=== PATIENT | female | born 1945 | race Caucasian/White ===

== ENCOUNTER 2016-12-03 17:54 | Emergency (ER) | payer MEDICARE, BC ==
[2016-12-03 18:11] VITALS: BP 148/87
[2016-12-03] MEDS ORDERED: Sodium Chloride 0.9% 10 ML Syringe FLUSH PRN (18:32)
[2016-12-03] MEDS ORDERED: Aspirin 81 MG Tab.Chew PO ONE (18:34)
[2016-12-03] MEDS ORDERED: HYDROmorphone 0.5 MG/0.5 ML Syringe IVPUSH ONE (20:02)
--- NOTE | 2016-12-03 20:08 | EDM.PDOC ---
ED HPI GENERAL MEDICAL PROBLEM - General Chief Complaint: Upper Extremity Injury/Pain Stated Complaint: Shoulder pain Time Seen by Provider: 12/03/16 18:15 Source of Information: Reports: Patient, RN Notes Reviewed History Limitations: Reports: No Limitations - History of Present Illness INITIAL COMMENTS - FREE TEXT/NARRATIVE: 71 year old female presents to the ED with complaints of left shoulder pain for the past 3-4 days. She says the pain radiates down her left arm and into her neck. She denies chest pain. She reports mild increase in shortness of breath over the past few weeks. Her PCP Dr. Mcneal recently increased her Lasix and the patient reports a 10lb weight loss as a result. She denies swelling in her lower extremities. She says the pain is intermittent and mild in nature. She has a pacemaker. She denies fever, chills, cough, nausea, vomiting, abdominal pain, or diarrhea. She denies history of heart attack. She is not a smoker. She took Tramadol with minimal relief. Left Shoulder Pain Score (Numeric/FACES): 5 - Related Data Allergies Allergy/AdvReac Type Severity Reaction Status Date / Time ACEINHIBITORS Allergy Intermediate Edema Verified 12/03/16 19:40 [MELYSSA Inhibitors] hydrochlorothiazide Allergy Intermediate unknown Verified 12/03/16 18:04 tetracycline [Tetracycline] Allergy Intermediate Hives Verified 12/03/16 19:41 Home Meds: Home Meds Acetaminophen [Tylenol Extra Strength] 2 tape PO ASDIRECTED PRN 07/30/13 [ History] Acetaminophen/Diphenhydramine [Acetaminophen Pm Gelcap] 2 tab PO BEDTIME PRN 07/10 [History] Alendronate Sodium [Fosamax] 70 mg PO ASDIRECTED 07/30/13 [History] Ascorbic Acid [Vitamin C] 500 mg PO DAILY 07/30/13 [History] Aspirin [Adult Low Dose Aspirin EC] 81 mg PO DAILY 07/30/13 [History] Atenolol 50 mg PO DAILY 07/30/13 [History] Calcium Carbonate/Vitamin D3 [Caltrate-600 with Vit D Tab] 1 each PO BID [History] Folic Acid 0.5 tab PO DAILY 07/30/13 [History] Furosemide [Lasix] 80 mg PO BID 07/30/13 [History] Hydrocodone/Acetaminophen [Hydrocodone-Acetaminophen 5-325] 1 each PO Q6H PRN # 10 tablet 07/30/13 [Rx] Ibuprofen [Motrin] 400 mg PO Q8H PRN 07/30/13 [History] Isosorbide Mononitrate [Imdur] 30 mg PO DAILY 07/30/13 [History] Levothyroxine [Synthroid] 25 mcg PO ASDIRECTED 07/30/13 [History] Levothyroxine [Synthroid] 50 mcg PO ASDIRECTED 07/30/13 [History] Multivitamin [Multivitamins] 1 each PO DAILY 07/30/13 [History] [place]-3 Fatty Acids/Fish Oil [Fish Oil 1,200 mg Softgel] 1,200 each PO BID 07/30 [History] Omeprazole [Prilosec] 20 mg PO DAILY 07/30/13 [History] Potassium Chloride [Klor-Con 10] 20 meq PO DAILY 07/30/13 [History] Propylene Glycol/Peg 400 [Systane Liquid Gel Eye Drops] 1 drop EYEBOTH PRN 07/30 [History] Pyridoxine HCl [Vitamin B-6] 100 mg PO DAILY 07/30/13 [History] Sertraline [Zoloft] 50 mg PO DAILY 07/30/13 [History] Past Medical History Cardiovascular History: Reports: Heart Failure, High Cholesterol, Hypertension, Pacemaker, SOB on Exertion Genitourinary History: Reports: Renal Disease Endocrine/Metabolic History: Reports: Hypothyroidism - Past Surgical History GI Surgical History: Reports: Hernia Repair/Other Social & Family History - Tobacco Use Smoking Status *Q: Former Smoker Years of Tobacco use: 15 Used Tobacco, but Quit: No Month Tobacco Last Used: 2003 Review of Systems - Review of Systems Review Of Systems: See Below Respiratory: Reports: Shortness of Breath. Denies: Wheezing, Pleuritic Chest Pain, Cough, Sputum Cardiovascular: Reports: Chest Pain. Denies: Edema, Lightheadedness, Palpitations, Syncope GI/Abdominal: Reports: No Symptoms. Denies: Abdominal Pain, Nausea, Vomiting Neurological: Reports: No Symptoms ED EXAM, GENERAL - Physical Exam Exam: See Below Exam Limited By: No Limitations General Appearance: Alert, No Apparent Distress, Obese Respiratory/Chest: No Respiratory Distress, Lungs Clear, Normal Breath Sounds, No Accessory Muscle Use, Chest Non-Tender Cardiovascular: Normal Peripheral Pulses, Regular Rate, Rhythm, No Edema, Systolic Murmur GI/Abdominal: Normal Bowel Sounds, Soft, Non-Tender, No Distention Extremities: Normal Inspection, Normal Range of Motion, No Pedal Edema Neurological: Alert, Oriented, Normal Cognition Skin Exam: Warm, Dry, Intact EKG INTERPRETATION EKG Date: 12/03/16 Time: 18:20 Rhythm: NSR Rate (Beats/Min): 61 P-Wave: Present QRS: RBBB ST-T: Normal QT: Normal EKG Interpretation Comments: Right bundle branch block. Read by EKG. Course - Vital Signs Last Recorded V/S: Last Vital Signs Temp 98.2 F 12/03/16 18:08 Pulse 64 12/03/16 18:08 Resp 16 12/03/16 18:08 BP 148/87 H 12/03/16 18:08 Pulse Ox 96 12/03/16 18:08 - Orders/Labs/Meds Orders: Active Orders 24 hr Category Date Time Status Cardiac Monitoring [RC] . DIRECTED Care 12/03/16 18:32 Active EKG 12 Lead [EKG Documentation Completion] [RC] STAT Care 12/03/16 18:15 Active Peripheral IV Care [RC] . DIRECTED Care 12/03/16 18:33 Active CXR [Chest 1V Frontal] [CR] Stat Exams 12/03/16 18:45 Taken Sodium Chloride 0.9% [Saline Flush] Med 12/03/16 18:32 Active 10 ml FLUSH ASDIRECTED PRN Peripheral IV Insertion Adult [OM.PC] Stat Oth 12/03/16 18:33 Ordered Medication Orders Sodium Chloride (Saline Flush) 10 ml FLUSH ASDIRECTED PRN PRN Reason: Keep Vein Open Last Admin: 12/03/16 18:38 Dose: 10 ml Labs: Laboratory Tests 12/03/16 12/03/16 12/03/16 Range/Units 18:38 18:38 18:38 WBC 6.29 (3.98-10.04) K/mm3 RBC 4.13 (3.98-5.22) M/mm3 Hgb 12.2 (11.2-15.7) gm/L Hct 39.0 (34.1-44.9) % MCV 94.4 (79.4-94.8) fl MCH 29.5 (25.6-32.2) pg MCHC 31.3 L (32.2-35.5) g/dl RDW Std Deviation 50.2 H (36.4-46.3) fL Plt Count 168 L (182-369) K/mm3 MPV 10.6 (9.4-12.3) fl Neut % (Auto) 59.4 (34.0-71.1) % Lymph % (Auto) 26.1 (19.3-51.7) % [place] % (Auto) 10.5 (4.7-12.5) % Eos % (Auto) 3.7 (0.7-5.8) Baso % (Auto) 0.3 (0.1-1.2) % Neut # (Auto) 3.74 (1.56-6.13) K/mm3 Lymph # (Auto) 1.64 (1.18-3.74) K/mm3 [place] # (Auto) 0.66 H (0.24-0.36) K/mm3 Eos # (Auto) 0.23 (0.04-0.36) K/mm3 Baso # (Auto) 0.02 (0.01-0.08) K/mm3 Sodium 142 (136-145) mEq/L Potassium 4.0 (3.5-5.1) mEq/L Chloride 103 (98-107) mEq/L Carbon Dioxide 36 H (21-32) mEq/L Anion Gap 7.0 (5-15) BUN 23 H (7-18) mg/dL Creatinine 1.0 (0.55-1.02) mg/dL Est Cr Clr Drug Dosing 38.94 mL/min Estimated GFR (MDRD) 55 (>60) mL/min BUN/Creatinine Ratio 23.0 H (14-18) Glucose 98 (83-115) mg/dL Calcium 10.3 H (8.5-10.1) mg/dL Total Bilirubin 0.3 (0.2-1.0) mg/dL AST 22 (15-37) U/L ALT 26 (14-59) U/L Alkaline Phosphatase 61 (46-116) U/L Troponin I 0.020 (0.00-0.056) ng/mL NT-Pro-B Natriuret Pep 1470 H (0-125) pg/mL Total Protein 7.1 (6.4-8.2) g/dl Albumin 3.5 (3.4-5.0) g/dl Globulin 3.6 gm/dL Albumin/Globulin Ratio 1.0 (1-2) 12/03/16 Range/Units 21:27 WBC (3.98-10.04) K/mm3 RBC (3.98-5.22) M/mm3 Hgb (11.2-15.7) gm/L Hct (34.1-44.9) % MCV (79.4-94.8) fl MCH (25.6-32.2) pg MCHC (32.2-35.5) g/dl RDW Std Deviation (36.4-46.3) fL Plt Count (182-369) K/mm3 MPV (9.4-12.3) fl Neut % (Auto) (34.0-71.1) % Lymph % (Auto) (19.3-51.7) % [place] % (Auto) (4.7-12.5) % Eos % (Auto) (0.7-5.8) Baso % (Auto) (0.1-1.2) % Neut # (Auto) (1.56-6.13) K/mm3 Lymph # (Auto) (1.18-3.74) K/mm3 [place] # (Auto) (0.24-0.36) K/mm3 Eos # (Auto) (0.04-0.36) K/mm3 Baso # (Auto) (0.01-0.08) K/mm3 Sodium (136-145) mEq/L Potassium (3.5-5.1) mEq/L Chloride (98-107) mEq/L Carbon Dioxide (21-32) mEq/L Anion Gap (5-15) BUN (7-18) mg/dL Creatinine (0.55-1.02) mg/dL Est Cr Clr Drug Dosing mL/min Estimated GFR (MDRD) (>60) mL/min BUN/Creatinine Ratio (14-18) Glucose (83-115) mg/dL Calcium (8.5-10.1) mg/dL Total Bilirubin (0.2-1.0) mg/dL AST (15-37) U/L ALT (14-59) U/L Alkaline Phosphatase (46-116) U/L Troponin I 0.025 (0.00-0.056) ng/mL NT-Pro-B Natriuret Pep (0-125) pg/mL Total Protein (6.4-8.2) g/dl Albumin (3.4-5.0) g/dl Globulin gm/dL Albumin/Globulin Ratio (1-2) Meds: Medications Generic Name Dose Route Start Last Admin Trade Name Freq PRN Reason Stop Dose Admin Sodium Chloride 10 ml 12/03/16 18:32 12/03/16 18:38 Saline Flush FLUSH 10 ml ASDIRECTED PRN Administration Keep Vein Open Discontinued Medications Generic Name Dose Route Start Last Admin Trade Name Freq PRN Reason Stop Dose Admin Aspirin 324 mg 12/03/16 18:34 12/03/16 18:41 Aspirin PO 12/03/16 18:35 324 mg ONETIME ONE Administration Hydromorphone HCl 0.5 mg 12/03/16 20:02 12/03/16 20:11 Dilaudid IVPUSH 12/03/16 20:03 0.5 mg ONETIME ONE Administration - Re-Assessments/Exams Free Text/Narrative Re-Assessment/Exam: CBC is normal. CMP reveals Carbon dioxide of 36. Otherwise unremarkable. Troponin is WNL at 0.020. BNP is 1470. Patient reports that her BNP a few weeks ago was 4000 and had improved to 2000 after increasing her Lasix. Repeat 3 hour troponin ordered. Chest x-ray reveals blunting of the costophrenic angles. Cardiomegaly noted. No pulmonary infiltrates appreciated. Radiologist report is pending. 12/03/16 22:15 Repeat troponin is WNL. Patient will be discharged home. She was instructed to return with any new or worsening symptoms. She was instructed to f/u with Dr. Mcneal tomorrow or early next week for recheck. She is to continue her medications as prescribed. Discharge instructions as documented. Her is here to drive her home. Departure - Departure Time of Disposition: 22:17 Disposition: Home, Self-Care 01 Condition: Good Clinical Impression: Left shoulder pain Qualifiers: Chronicity: unspecified Qualified Code(s): M25.512 - Pain in left shoulder - Discharge Information Instructions: Shoulder Pain, Nonspecific Chest Pain, [id number] Referrals: Luna Mcneal MD [Primary Care Provider] - Forms: ED Department Discharge Additional Instructions: Your cardiac workup today was normal Return to ER with any new or worsening symptoms Follow-up with Dr. Mcneal tomorrow or early next week for recheck Continue your current medications as prescribed. - My Orders Last 24 Hours: My Active Orders 12/03/16 18:15 EKG 12 Lead [EKG Documentation Completion] [RC] STAT 12/03/16 18:32 Cardiac Monitoring [RC] . DIRECTED Sodium Chloride 0.9% [Saline Flush] 10 ml FLUSH ASDIRECTED PRN 12/03/16 18:33 Peripheral IV Care [RC] . DIRECTED Peripheral IV Insertion Adult [OM.PC] Stat 12/03/16 18:45 CXR [Chest 1V Frontal] [CR] Stat - Assessment/Plan Last 24 Hours: My Active Orders 12/03/16 18:15 EKG 12 Lead [EKG Documentation Completion] [RC] STAT 12/03/16 18:32 Cardiac Monitoring [RC] . DIRECTED Sodium Chloride 0.9% [Saline Flush] 10 ml FLUSH ASDIRECTED PRN 12/03/16 18:33 Peripheral IV Care [RC] . DIRECTED Peripheral IV Insertion Adult [OM.PC] Stat 12/03/16 18:45 CXR [Chest 1V Frontal] [CR] Stat
--- NOTE | 2016-12-04 08:33 | CR ---
Chest: Portable view of the chest was obtained. Comparison: Previous chest x-ray of 02/25/13. Heart is enlarged. Tortuous thoracic aorta is seen. Bilateral shoulder prosthesis are seen. Pacemaker is noted. Slight scarring is noted within the left mid lung. Lungs otherwise are clear. Impression: 1. Cardiomegaly and other findings. Nothing acute is identified. Diagnostic code #2
== END 2016-12-03 22:32 | disposition home or self-care (01) ==
LOC: JD.ED 17:54
DX: M25.512 Pain in left shoulder (principal); I11.0 Hypertensive heart disease with heart failure; I50.9 Heart failure, unspecified; E78.00 Pure hypercholesterolemia, unspecified; E03.9 Hypothyroidism, unspecified; Z88.1 Allergy status to other antibiotic agents; Z79.899 Other long term (current) drug therapy; Z79.82 Long term (current) use of aspirin; Z87.891 Personal history of nicotine dependence
CPT/HCPCS: 36415; 71010; 80053; 83880; 84484; 85025; 93005; 96374; 99284; A9270; J1170; J7050

== ENCOUNTER 2018-07-07 16:36 | Inpatient (IN) | payer MEDICARE, BC ==
--- NOTE | 2018-07-07 16:46 | EDM.PDOC ---
ED HPI GENERAL MEDICAL PROBLEM - General Chief Complaint: General Stated Complaint: [facility] Time Seen by Provider: 07/07/18 16:45 Source of Information: Reports: Patient History Limitations: Reports: No Limitations - History of Present Illness INITIAL COMMENTS - FREE TEXT/NARRATIVE: 72-year-old female presents to the ED per [facility]. is a history of congestive heart failure and is concerned because of persistent bleeding per rectum with each bowel movement and sometimes without a bowel movement. She has a history of hemorrhoids she's not sure if combination of external and internal hemorrhoids. She is on Eliquis because of chronic atrial fibrillation. She has been constipated as of late as well. She feels more short of breath. She is worn out and not able to look after herself at this point time in terms of getting food or proper nutrition. Patient has severe congestive heart failure and uses 80 mg of Lasix twice a day. She states she's getting weaker by the day and unable to stand up for very long due to becoming lightheaded and having difficulty making it to the bathroom. She has to wear a pad at nighttime because of persistent oozing of blood per rectum. She states bowel movements are painful as well. She has to been taking some laxatives the last few days and bowels have been working but are still very firm and difficult to pass Onset: Gradual Onset Date: 07/04/18 (Has been bleeding per rectum. Well for the last 3-4 days intermittently.) Duration: Day(s):, Getting Worse Location: Reports: Chest, Other (Dyspnea. Bleeding per rectum) Quality: Reports: Other (Shortness of breath on minimal exertion. Persistent lower abdominal cramping pain with painful bowel movements and bleeding per rectum) Severity: Moderate Improves with: Reports: None Worsens with: Reports: Other, Movement Context: Denies: Activity (Bleeding per rectum is worse with bowel movements which have been quite painful and hard to pass), Exercise, Lifting, Sick Contact , Trauma, Other Associated Symptoms: Reports: Loss of Appetite, Malaise, Shortness of Breath, Weakness. 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 (see below) (Only her regular medicines including aspirin and Eliquis.) - Related Data Allergies Allergy/AdvReac Type Severity Reaction Status Date / Time ACEINHIBITORS Allergy Intermediate Edema Verified 12/03/16 19:40 [MELYSSA Inhibitors] hydrochlorothiazide Allergy Intermediate unknown Verified 12/03/16 18:04 tetracycline [Tetracycline] Allergy Intermediate Hives Verified 12/03/16 19:41 Home Meds: Home Meds Atenolol 50 mg PO DAILY 07/30/13 [History] Calcium Carbonate/Vitamin D3 [Caltrate-600 with Vit D Tab] 1 each PO BID [History] Folic Acid 0.5 mg PO DAILY 07/30/13 [History] Furosemide [Lasix] 80 mg PO BID 07/30/13 [History] Levothyroxine [Synthroid] 25 mcg PO ASDIRECTED 07/30/13 [History] Levothyroxine [Synthroid] 50 mcg PO ASDIRECTED 07/30/13 [History] Multivitamin [Multivitamins] 1 each PO DAILY 07/30/13 [History] Omeprazole [Prilosec] 20 mg PO DAILY 07/30/13 [History] Potassium Chloride [Klor-Con 10] 20 meq PO BID 07/30/13 [History] Propylene Glycol/Peg 400 [Systane Liquid Gel Eye Drops] 1 drop EYEBOTH DAILY PRN 07/30/13 [History] Acetaminophen [Tylenol Arthritis Pain] 650 mg PO Q8H PRN 07/07/18 [History] Apixaban [Eliquis] 5 mg PO DAILY 07/07/18 [History] Cyanocobalamin (Vitamin B-12) [B-12] 1,000 mcg PO DAILY 07/07/18 [History] Diclofenac Sodium [Voltaren 1% Gel] 1 - 2 gm TOP BID 07/07/18 [History] Diltiazem [Cardizem CD] 120 mg PO DAILY 07/07/18 [History] Docusate Sodium 200 mg PO DAILY 07/07/18 [History] Fluticasone Propionate [Flonase Allergy Relief] 1 spray CATHY BID 07/07/18 [ History] Loratadine 10 mg PO DAILY 07/07/18 [History] Melatonin 5 mg PO BEDTIME 07/07/18 [History] Polyethylene Glycol [Polyox Wsr-301] 17 g PO Q72H 07/07/18 [History] Rosuvastatin Calcium 20 mg PO DAILY 07/07/18 [History] Sertraline [Zoloft] 75 mg PO DAILY 07/07/18 [History] guaiFENesin [Mucinex] 1,200 mg PO BID 07/07/18 [History] metOLazone [Metolazone] 5 mg PO DAILY 07/07/18 [History] Past Medical History Cardiovascular History: Reports: Heart Failure, High Cholesterol, Hypertension, Pacemaker, SOB on Exertion Genitourinary History: Reports: Renal Disease Endocrine/Metabolic History: Reports: Hypothyroidism - Past Surgical History GI Surgical History: Reports: Hernia Repair/Other Social & Family History - Living Situation & Occupation Living situation: Reports: Occupation: Retired ED ROS GENERAL - Review of Systems Review Of Systems: See Below Constitutional: Reports: Malaise, Weakness, Fatigue, Decreased Appetite, Weight Loss. Denies: Fever, Chills HEENT: Reports: Glasses, Hearing Loss (Mildly hard of hearing.) Respiratory: Reports: Shortness of Breath. Denies: Wheezing, Pleuritic Chest Pain, Cough, Sputum, Hemoptysis Cardiovascular: Reports: Blood Pressure Problem, Dyspnea on Exertion ( Intermittently in her lower extremities), Edema, Lightheadedness, Palpitations ( worse as of late). Denies: Chest Pain, Claudication (Often runs a bit on the low side.), Orthopnea Endocrine: Reports: Fatigue ( atrial fibrillation) GI/Abdominal: Reports: Abdominal Pain (Mostly lower abdominal cramping pain.), Constipation : Reports: Frequency, Incontinence (Urge and stress components.), Other ( Persistent bleeding per rectum even without a bowel movement.) Musculoskeletal: Reports: Neck Pain, Shoulder Pain, Other (Patient has had bilateral shoulder replacements and bilateral hip replacements. 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 Denies: Confusion, Headache, Numbness, Paresthesia, Pre-Existing Deficit, Seizure, Syncope, Tingling, Tremors, Trouble Speaking, Change in Speech, Gait Disturbance Psychiatric: Reports: Anxiety (Mild) Hematologic/Lymphatic: Denies: No Symptoms Immunologic: Denies: No Symptoms ED EXAM, GENERAL - Physical Exam Exam: See Below Exam Limited By: No Limitations General Appearance: Alert, WD/WN, Anxious, Mild Distress, Other (Mildly palate in color. Sats only 92% on room air. 96-97% on 2 L.) Eye Exam: Bilateral Eye: Normal Inspection (Peripheral margins are normal) Throat/Mouth: Normal Inspection, Normal Oropharynx, Other (Tongue is mildly dry and coated) Head: Atraumatic, Normocephalic Neck: Normal Inspection, Supple, Non-Tender. No: Full Range of Motion, Lymphadenopathy (L), Lymphadenopathy (R) Respiratory/Chest: No Accessory Muscle Use, Respiratory Distress (Mild tachypnea at rest), Rales. No: Lungs Clear, Normal Breath Sounds, Rhonchi, Wheezing (Rales both bases worse on the left as compared to the right) Cardiovascular: No Edema, JVD (3 cm below the right angle of mandible), Irregularly Irregular (Chronic atrial fibrillation with controlled rate). No: Normal Peripheral Pulses, Regular Rate, Rhythm, Tachycardia Peripheral Pulses: 0: Posterior Tibial (L) (No pulses are palpable below the femorals. Feet are extremely cool to touch indicating significant peripheral vascular disease.), Posterior Tibial (R), Dorsalis Pedis (L), Dorsalis Pedis (R) GI/Abdominal: Soft, Distended (Bowel sounds are very active in all 4 quadrants.) , Abnormal Bowel Sounds, Other (Multiple surgical scars.). No: Non-Tender, No Organomegaly, No Abnormal Bruit ( Distended and tympanitic to percussion.), No Mass, Pelvis Stable Extremities: No Pedal Edema, Other (Both legs are very cool to touch and no pulses are palpable below the femorals indicating peripheral vascular disease. There are no open wounds or ulcerations on the lower extremities. ). No: Normal Capillary Refill Psychiatric: Anxious Skin Exam: Warm, Dry, Intact, Pallor (Slightly pallid.) EKG INTERPRETATION EKG Date: 07/07/18 Time: 17:10 Rhythm: Other (100% paced rhythm at 60/m. No further analysis attempted) [place]: LAD-Left [place] Deviation (-76) QRS: Wide EKG Interpretation Comments: 100% ventricular paced rhythm. No further analysis attempted Course - Vital Signs Last Recorded V/S: Last Vital Signs Temp 36.3 C 07/07/18 16:49 Pulse 71 07/07/18 16:49 Resp 17 07/07/18 16:49 BP 88/63 L 04/11/19 16:49 Pulse Ox 97 07/07/18 17:01 - Orders/Labs/Meds Orders: Active Orders 24 hr Category Date Time Status Admission Status [Patient Status] [ADT] Routine ADT 07/07/18 19:08 Ordered EKG Documentation Completion [RC] STAT Care 07/07/18 17:00 Active Oxygen Therapy [RC] ASDIRECTED Care 07/07/18 17:01 Active Peripheral IV Care [RC] . DIRECTED Care 07/07/18 17:01 Active Abdomen 1V Flat [CR] Stat Exams 07/07/18 17:06 Taken Chest 1V Frontal [CR] Stat Exams 07/07/18 17:00 Taken HELICOBACTER PYLORI AB IGG [CHEM] Stat Lab 07/07/18 19:10 Ordered Potassium Chloride [KCl 10 MEQ in Water 100 ML] 10 meq Med 07/07/18 18:44 Active Premix Bag 1 bag IV ONETIME Sodium Chloride 0.9% [Normal Saline] 1,000 ml Med 07/07/18 18:45 Active IV ASDIRECTED Sodium Chloride 0.9% [Saline Flush] Med 07/07/18 17:01 Active 10 ml FLUSH ASDIRECTED PRN Peripheral IV Insertion Adult [OM.PC] Stat Oth 07/07/18 17:00 Ordered Medication Orders Potassium Chloride 10 meq/ (Premix) 100 mls @ 100 mls/hr IV ONETIME ONE Stop: 07/07/18 19:43 Last Admin: 07/07/18 19:09 Dose: 100 mls/hr Sodium Chloride (Normal Saline) 1,000 mls @ 50 mls/hr IV ASDIRECTED SHINE Last Admin: 07/07/18 19:09 Dose: 50 mls/hr Sodium Chloride (Saline Flush) 10 ml FLUSH ASDIRECTED PRN PRN Reason: Keep Vein Open Last Admin: 07/07/18 17:33 Dose: 10 ml Labs: Laboratory Tests 07/07/18 07/07/18 07/07/18 Range/Units 17:00 17:00 17:00 WBC 14.03 H (3.98-10.04) K/mm3 RBC 5.88 H (3.98-5.22) M/mm3 Hgb 17.9 H (11.2-15.7) gm/L Hct 50.9 H (34.1-44.9) % MCV 86.6 (79.4-94.8) fl MCH 30.4 (25.6-32.2) pg MCHC 35.2 (32.2-35.5) g/dl RDW Std Deviation 46.8 H (36.4-46.3) fL Plt Count 185 (182-369) K/mm3 MPV 11.7 (9.4-12.3) fl Neutrophils % (Manual) 84 H (40-60) % Band Neutrophils % 0 (0-10) % Lymphocytes % (Manual) 9 L (20-40) % Atypical Lymphs % 0 % Monocytes % (Manual) 7 (2-10) % Eosinophils % (Manual) 0 L (0.7-5.8) % Basophils % (Manual) 0 L (0.1-1.2) Platelet Estimate Adequate RBC Morph Comment Normal PT 12.5 H (9.5-12.1) SECONDS INR 1.15 APTT 27 (24-31) SECONDS Sodium 128 L (136-145) mEq/L Potassium 2.8 L (3.5-5.1) mEq/L Chloride 87 L (98-107) mEq/L Carbon Dioxide 26 (21-32) mEq/L Anion Gap 17.8 H (5-15) BUN 133 H (7-18) mg/dL Creatinine 2.3 H (0.55-1.02) mg/dL Est Cr Clr Drug Dosing 17.49 mL/min Estimated GFR (MDRD) 21 (>60) mL/min BUN/Creatinine Ratio 57.8 H (14-18) Glucose 169 H (83-115) mg/dL Calcium 12.4 H (8.5-10.1) mg/dL Magnesium 3.7 H (1.8-2.4) mg/dl Total Bilirubin 0.8 (0.2-1.0) mg/dL AST 34 (15-37) U/L ALT 35 (14-59) U/L Alkaline Phosphatase 79 (46-116) U/L Troponin I 0.104 H* (0.00-0.056) ng/mL C-Reactive Protein 2.3 H* (<1.0) mg/dL NT-Pro-B Natriuret Pep (0-125) pg/mL Total Protein 8.8 H (6.4-8.2) g/dl Albumin 4.2 (3.4-5.0) g/dl Globulin 4.6 gm/dL Albumin/Globulin Ratio 0.9 L (1-2) Blood Type Gel Antibody Screen 07/07/18 07/07/18 Range/Units 17:00 17:00 WBC (3.98-10.04) K/mm3 RBC (3.98-5.22) M/mm3 Hgb (11.2-15.7) gm/L Hct (34.1-44.9) % MCV (79.4-94.8) fl MCH (25.6-32.2) pg MCHC (32.2-35.5) g/dl RDW Std Deviation (36.4-46.3) fL Plt Count (182-369) K/mm3 MPV (9.4-12.3) fl Neutrophils % (Manual) (40-60) % Band Neutrophils % (0-10) % Lymphocytes % (Manual) (20-40) % Atypical Lymphs % % Monocytes % (Manual) (2-10) % Eosinophils % (Manual) (0.7-5.8) % Basophils % (Manual) (0.1-1.2) Platelet Estimate RBC Morph Comment PT (9.5-12.1) SECONDS INR APTT (24-31) SECONDS Sodium (136-145) mEq/L Potassium (3.5-5.1) mEq/L Chloride (98-107) mEq/L Carbon Dioxide (21-32) mEq/L Anion Gap (5-15) BUN (7-18) mg/dL Creatinine (0.55-1.02) mg/dL Est Cr Clr Drug Dosing mL/min Estimated GFR (MDRD) (>60) mL/min BUN/Creatinine Ratio (14-18) Glucose (83-115) mg/dL Calcium (8.5-10.1) mg/dL Magnesium (1.8-2.4) mg/dl Total Bilirubin (0.2-1.0) mg/dL AST (15-37) U/L ALT (14-59) U/L Alkaline Phosphatase (46-116) U/L Troponin I (0.00-0.056) ng/mL C-Reactive Protein (<1.0) mg/dL NT-Pro-B Natriuret Pep 5776 H (0-125) pg/mL Total Protein (6.4-8.2) g/dl Albumin (3.4-5.0) g/dl Globulin gm/dL Albumin/Globulin Ratio (1-2) Blood Type A POSITIVE Gel Antibody Screen Negative Meds: Medications Generic Name Dose Route Start Last Admin Trade Name Freq PRN Reason Stop Dose Admin Potassium Chloride 10 meq/ 100 mls @ 100 mls/hr 07/07/18 18:44 07/07/18 19:09 Premix IV 07/07/18 19:43 100 mls/hr ONETIME ONE Administration Sodium Chloride 1,000 mls @ 50 mls/hr 07/07/18 18:45 07/07/18 19:09 Normal Saline IV 50 mls/hr ASDIRECTED SHINE Administration Sodium Chloride 10 ml 07/07/18 17:01 07/07/18 17:33 Saline Flush FLUSH 10 ml ASDIRECTED PRN Administration Keep Vein Open Discontinued Medications Generic Name Dose Route Start Last Admin Trade Name Freq PRN Reason Stop Dose Admin Lidocaine HCl 10 ml 07/07/18 17:58 07/07/18 18:05 Xylocaine 2% Jelly MUCMEM 07/07/18 17:59 10 ml ONETIME ONE Administration - Radiology Interpretation Free Text/Narrative:: 72-year-old female presents to the ED due to generalized weakness. She is much more short of breath than normal she has been bleeding per rectum for the last 4 days both with bowel movements and without bowel movements. She has to wear a pad because she continues to lose blood per rectum. She has a history of external hemorrhoids she's not sure about internal hemorrhoids. Patient is on Eliquis and aspirin daily due to chronic atrial fibrillation. Clinically she is in chronic significant felt heart failure. Lasix Lasix 80 mg twice a day. She is currently hypoxic on room air 92% 2 L/m bring her up to 9697%. His rales in both lower lung jackson worse on the left as compared to the right. She has diffuse abdominal discomfort very active bowel sounds after taking several types of laxatives over the last few days to get her bowels working. She has a problem with constipation which is aggravating I believe hemorrhoids and bleeding per rectum. Plan routine labs to be done. Saline lock started. She will receive Lasix 40 mg IV. I plan on performing a rigid sigmoidoscopy to look for the source of bleeding per rectum. One view of the abdomen will be done as well. - Re-Assessments/Exams Free Text/Narrative Re-Assessment/Exam: 07/07/18 18:31 rigid sigmoidoscopy performed after consent was obtained. I went as high as 15 cm and could see nothing but blood well above the scalp. She does have some internal hemorrhoids and a few external hemorrhoids with no active bleeding evident. Bleeding is coming from the GI tract. CODE STATUS is been established to be DO NOT RESUSCITATE/DO NOT INTUBATE. 07/07/18 18:34 White count is mildly elevated at 14.03. Differential reveals 84 % neutrophils without any bands. Hemoglobin is 17.9 with hematocrit of 50.9 suggesting some degree of hemoconcentration. Platelet count is 185,000. PT is 12.5 with an INR of 1.15. PTT is 27. Sodium is low at 128 with a potassium low at 2.8. Chloride is 87 with a bicarbonate of 26. And a gap is elevated at 17.8 with a BUN of 133. This indicates that her current bleeding source is likely upper GI in origin. Creatinine is elevated at 2.3. GFR is down to 21 which is stage IV chronic renal insufficiency. Glucose is 169 with a calcium of 12.4. Magnesium is markedly elevated at 3.7. Liver function is normal. Troponin I is elevated at 0.104 likely due to severe congestive heart failure as BNP is 5776. C-reactive protein is elevated at 2.3. Total protein is 8.8 with an albumin fraction of 4.2. Chest x-ray reveals hardly any vasculature. Lungs are not hyperinflated. She has a pacemaker left upper abdomen. She has bilateral total shoulder replacements. Cardiac silhouette is upper limits of normal in size. No pleural effusions present. KUB reveals scattered air and stool throughout the colon particularly the descending colon. There is no bowel obstruction. There is some stool in the rectal vault. Plan: She is going to require some fluid resuscitation to improve her hyponatremia and I will hang a K rider to start to improve her serum potassium level which is very low at 2.6. Will order H. pylori screen 07/07/18 19:[address] Bermeo with a plan to admit the patient to [facility] surgery on telemetry. She is DO NOT RESUSCITATE DO NOT INTUBATE. Liquids should likely be placed on hold as well. Of note she should probably only be on 2.5 mg twice a day based on her renal function. She is currently on 5 mg twice a day. Her severe congestive heart failure. Her hypokalemia and recent GI bleed make her prognosis is extremely guarded. Her cardiac function is extremely poor which is contributing to severe renal insufficiency. Departure - Departure Time of Disposition: 19:14 Disposition: Home, Self-Care 01 Condition: Fair Clinical Impression: Upper gastrointestinal hemorrhage, Hypokalemia, Hyponatremia, Chronic renal insufficiency, stage IV (severe), Hypermagnesemia, Volume depletion, gastrointestinal loss Congestive heart failure Qualifiers: Heart failure type: diastolic Heart failure chronicity: acute on chronic Qualified Code(s): I50.33 - Acute on chronic diastolic (congestive) heart failure - Discharge Information *PRESCRIPTION DRUG MONITORING PROGRAM REVIEWED*: Not Applicable *COPY OF PRESCRIPTION DRUG MONITORING REPORT IN PATIENT SETH: Not Applicable Referrals: Luna Mcneal MD [Primary Care Provider] - Forms: ED Department Discharge - My Orders Last 24 Hours: My Active Orders 07/07/18 17:00 EKG Documentation Completion [RC] STAT Chest 1V Frontal [CR] Stat Peripheral IV Insertion Adult [OM.PC] Stat 07/07/18 17:01 Oxygen Therapy [RC] ASDIRECTED Peripheral IV Care [RC] . DIRECTED Sodium Chloride 0.9% [Saline Flush] 10 ml FLUSH ASDIRECTED PRN 07/07/18 17:06 Abdomen 1V Flat [CR] Stat 07/07/18 18:44 Potassium Chloride [KCl 10 MEQ in Water 100 ML] 10 meq Premix Bag 1 bag IV ONETIME 07/07/18 18:45 Sodium Chloride 0.9% [Normal Saline] 1,000 ml IV ASDIRECTED 07/07/18 19:08 Admission Status [Patient Status] [ADT] Routine 07/07/18 19:10 HELICOBACTER PYLORI AB IGG [CHEM] Stat - Assessment/Plan Last 24 Hours: My Active Orders 07/07/18 17:00 EKG Documentation Completion [RC] STAT Chest 1V Frontal [CR] Stat Peripheral IV Insertion Adult [OM.PC] Stat 07/07/18 17:01 Oxygen Therapy [RC] ASDIRECTED Peripheral IV Care [RC] . DIRECTED Sodium Chloride 0.9% [Saline Flush] 10 ml FLUSH ASDIRECTED PRN 07/07/18 17:06 Abdomen 1V Flat [CR] Stat 07/07/18 18:44 Potassium Chloride [KCl 10 MEQ in Water 100 ML] 10 meq Premix Bag 1 bag IV ONETIME 07/07/18 18:45 Sodium Chloride 0.9% [Normal Saline] 1,000 ml IV ASDIRECTED 07/07/18 19:08 Admission Status [Patient Status] [ADT] Routine 07/07/18 19:10 HELICOBACTER PYLORI AB IGG [CHEM] Stat
[2018-07-07] MEDS ORDERED: Sodium Chloride 0.9% 10 ML Syringe FLUSH PRN (17:01)
[2018-07-07] MEDS ORDERED: Lidocaine 2% Jelly 10 ML Urojet MUCMEM ONE (17:58)
[2018-07-07] MEDS ORDERED: Potassium Chloride 10 MEQ in Premix Bag 1 BAG IV ONE (18:44)
[2018-07-07] MEDS ORDERED: Sodium Chloride 0.9% 1,000 ML IV SCH (18:45)
[2018-07-07] MEDS ORDERED: Non-Formulary Medication 1 Each (Acetaminophen 650 MG) PO PRN (22:08)
[2018-07-07] MEDS ORDERED: Carboxymethylcellulose Sodium 1% Ophth Gel 15 ML Bottle EYEBOTH PRN (22:08)
[2018-07-07] MEDS ORDERED: Metoprolol Tartrate 5 MG/5 ML SDV IVPUSH PRN (22:13)
[2018-07-07] MEDS ORDERED: hydrALAZINE 20 MG/ML SDV IVPUSH PRN (22:13)
[2018-07-07] MEDS ORDERED: LORazepam 2 MG/ML SDV IV PRN (22:15)
[2018-07-07] MEDS ORDERED: Promethazine 6.25 MG in Sodium Chloride 0.9% 50 ML IV PRN (22:15)
[2018-07-07] MEDS ORDERED: Ondansetron 4 MG/2 ML SDV IV PRN (22:15)
[2018-07-07] MEDS ORDERED: Acetaminophen 325 MG Tab PO PRN (22:15)
[2018-07-07] MEDS ORDERED: HYDROmorphone 0.5 MG/0.5 ML Syringe IVPUSH PRN (22:15)
[2018-07-07] MEDS ORDERED: Albuterol/Ipratropium 3.0-0.5 MG/3 ML Neb Soln NEB PRN (22:15)
[2018-07-07] MEDS ORDERED: Acetaminophen/HYDROcodone 325-5 MG Tab PO PRN (22:15)
--- NOTE | 2018-07-07 22:41 | PCM.CONS ---
H&P History of Present Illness - General Date of Service: 07/07/18 Admit Problem/Dx: Admission Diagnosis/Problem Admission Diagnosis/Problem Gastrointestinal hemorrhage Source of Information: Patient - Related Data Allergies/Adverse Reactions: Allergies Allergy/AdvReac Type Severity Reaction Status Date / Time ACEINHIBITORS Allergy Intermediate Edema Verified 12/03/16 19:40 [MELYSSA Inhibitors] hydrochlorothiazide Allergy Intermediate unknown Verified 12/03/16 18:04 tetracycline [Tetracycline] Allergy Intermediate Hives Verified 12/03/16 19:41 Home Medications: Home Meds Atenolol 50 mg PO DAILY 07/30/13 [History] Calcium Carbonate/Vitamin D3 [Caltrate-600 with Vit D Tab] 1 each PO BID [History] Folic Acid 0.5 mg PO DAILY 07/30/13 [History] Furosemide [Lasix] 80 mg PO BID 07/30/13 [History] Levothyroxine [Synthroid] 25 mcg PO ASDIRECTED 07/30/13 [History] Levothyroxine [Synthroid] 50 mcg PO ASDIRECTED 07/30/13 [History] Multivitamin [Multivitamins] 1 each PO DAILY 07/30/13 [History] Omeprazole [Prilosec] 20 mg PO DAILY 07/30/13 [History] Potassium Chloride [Klor-Con 10] 20 meq PO BID 07/30/13 [History] Propylene Glycol/Peg 400 [Systane Liquid Gel Eye Drops] 1 drop EYEBOTH DAILY PRN 07/30/13 [History] Acetaminophen [Tylenol Arthritis Pain] 650 mg PO Q8H PRN 07/07/18 [History] Apixaban [Eliquis] 5 mg PO DAILY 07/07/18 [History] Cyanocobalamin (Vitamin B-12) [B-12] 1,000 mcg PO DAILY 07/07/18 [History] Diclofenac Sodium [Voltaren 1% Gel] 1 - 2 gm TOP BID 07/07/18 [History] Diltiazem [Cardizem CD] 120 mg PO DAILY 07/07/18 [History] Docusate Sodium 200 mg PO DAILY 07/07/18 [History] Fluticasone Propionate [Flonase Allergy Relief] 1 spray CATHY BID 07/07/18 [ History] Loratadine 10 mg PO DAILY 07/07/18 [History] Melatonin 5 mg PO BEDTIME 07/07/18 [History] Polyethylene Glycol [Polyox Wsr-301] 17 g PO Q72H 07/07/18 [History] Rosuvastatin Calcium 20 mg PO DAILY 07/07/18 [History] Sertraline [Zoloft] 75 mg PO DAILY 07/07/18 [History] guaiFENesin [Mucinex] 1,200 mg PO BID 07/07/18 [History] metOLazone [Metolazone] 5 mg PO DAILY 07/07/18 [History] Past Medical History Cardiovascular History: Reports: Heart Failure, High Cholesterol, Hypertension, Pacemaker, SOB on Exertion Genitourinary History: Reports: Renal Disease Endocrine/Metabolic History: Reports: Hypothyroidism - Past Surgical History GI Surgical History: Reports: Hernia Repair/Other Social & Family History - Tobacco Use Smoking Status *Q: Former Smoker Years of Tobacco use: 13 Packs/Tins Daily: 0.7 Used Tobacco, but Quit: Yes Month/Year Tobacco Last Used: 2003 Second Hand Smoke Exposure: No - Caffeine Use Caffeine Use: Reports: Coffee, Soda Other Caffeine Use: Last use greater than 1 week, 6 cups per day and 1 can per day - Alcohol Use Date of Last Drink: 06/19/18 - Recreational Drug Use Recreational Drug Use: No - Living Situation & Occupation Living situation: Reports: Occupation: Retired Exam - Vital Signs Vital Signs: Last Vital Signs Temp 36.4 C 07/07/18 20:00 Pulse 64 07/07/18 20:00 Resp 20 07/07/18 20:00 BP 107/82 07/07/18 20:00 Pulse Ox 99 07/07/18 20:19 Weight: 74.661 kg - Patient Data Lab Results Last 24 hrs: Laboratory Results - last 24 hr 07/07/18 07/07/18 07/07/18 Range/Units 17:00 17:00 17:00 WBC 14.03 H (3.98-10.04) K/mm3 RBC 5.88 H (3.98-5.22) M/mm3 Hgb 17.9 H (11.2-15.7) gm/L Hct 50.9 H (34.1-44.9) % MCV 86.6 (79.4-94.8) fl MCH 30.4 (25.6-32.2) pg MCHC 35.2 (32.2-35.5) g/dl RDW Std Deviation 46.8 H (36.4-46.3) fL Plt Count 185 (182-369) K/mm3 MPV 11.7 (9.4-12.3) fl Neutrophils % (Manual) 84 H (40-60) % Band Neutrophils % 0 (0-10) % Lymphocytes % (Manual) 9 L (20-40) % Atypical Lymphs % 0 % Monocytes % (Manual) 7 (2-10) % Eosinophils % (Manual) 0 L (0.7-5.8) % Basophils % (Manual) 0 L (0.1-1.2) Platelet Estimate Adequate RBC Morph Comment Normal PT 12.5 H (9.5-12.1) SECONDS INR 1.15 APTT 27 (24-31) SECONDS Sodium 128 L (136-145) mEq/L Potassium 2.8 L (3.5-5.1) mEq/L Chloride 87 L (98-107) mEq/L Carbon Dioxide 26 (21-32) mEq/L Anion Gap 17.8 H (5-15) BUN 133 H (7-18) mg/dL Creatinine 2.3 H (0.55-1.02) mg/dL Est Cr Clr Drug Dosing 17.49 mL/min Estimated GFR (MDRD) 21 (>60) mL/min BUN/Creatinine Ratio 57.8 H (14-18) Glucose 169 H (83-115) mg/dL Calcium 12.4 H (8.5-10.1) mg/dL Magnesium 3.7 H (1.8-2.4) mg/dl Total Bilirubin 0.8 (0.2-1.0) mg/dL AST 34 (15-37) U/L ALT 35 (14-59) U/L Alkaline Phosphatase 79 (46-116) U/L Troponin I 0.104 H* (0.00-0.056) ng/mL C-Reactive Protein 2.3 H* (<1.0) mg/dL NT-Pro-B Natriuret Pep (0-125) pg/mL Total Protein 8.8 H (6.4-8.2) g/dl Albumin 4.2 (3.4-5.0) g/dl Globulin 4.6 gm/dL Albumin/Globulin Ratio 0.9 L (1-2) H. pylori IgG Antibody (NEGATIVE) Blood Type Gel Antibody Screen 07/07/18 07/07/18 07/07/18 Range/Units 17:00 17:00 17:00 WBC (3.98-10.04) K/mm3 RBC (3.98-5.22) M/mm3 Hgb (11.2-15.7) gm/L Hct (34.1-44.9) % MCV (79.4-94.8) fl MCH (25.6-32.2) pg MCHC (32.2-35.5) g/dl RDW Std Deviation (36.4-46.3) fL Plt Count (182-369) K/mm3 MPV (9.4-12.3) fl Neutrophils % (Manual) (40-60) % Band Neutrophils % (0-10) % Lymphocytes % (Manual) (20-40) % Atypical Lymphs % % Monocytes % (Manual) (2-10) % Eosinophils % (Manual) (0.7-5.8) % Basophils % (Manual) (0.1-1.2) Platelet Estimate RBC Morph Comment PT (9.5-12.1) SECONDS INR APTT (24-31) SECONDS Sodium (136-145) mEq/L Potassium (3.5-5.1) mEq/L Chloride (98-107) mEq/L Carbon Dioxide (21-32) mEq/L Anion Gap (5-15) BUN (7-18) mg/dL Creatinine (0.55-1.02) mg/dL Est Cr Clr Drug Dosing mL/min Estimated GFR (MDRD) (>60) mL/min BUN/Creatinine Ratio (14-18) Glucose (83-115) mg/dL Calcium (8.5-10.1) mg/dL Magnesium (1.8-2.4) mg/dl Total Bilirubin (0.2-1.0) mg/dL AST (15-37) U/L ALT (14-59) U/L Alkaline Phosphatase (46-116) U/L Troponin I (0.00-0.056) ng/mL C-Reactive Protein (<1.0) mg/dL NT-Pro-B Natriuret Pep 5776 H (0-125) pg/mL Total Protein (6.4-8.2) g/dl Albumin (3.4-5.0) g/dl Globulin gm/dL Albumin/Globulin Ratio (1-2) H. pylori IgG Antibody Negative (NEGATIVE) Blood Type A POSITIVE Gel Antibody Screen Negative Result Diagrams: 07/07/18 17:00 07/07/18 17:00 Consult PN Assessment/Plan Procedures: Procedures ASSAY OF NATRIURETIC PEPTIDE (12/03/16) ASSAY OF TROPONIN QUANT (12/03/16) BREAST TOMOSYNTHESIS BI (12/20/17) CARDIOVASCULAR STRESS TEST (08/12/17) CHEST X-RAY 1 VIEW FRONTAL (12/03/16) COMP SCREEN MAMMOGRAM ADD-ON (05/31/15) COMPLETE CBC W/AUTO DIFF WBC (12/03/16) COMPREHEN METABOLIC PANEL (12/03/16) COMPUTER DX MAMMOGRAM ADD-ON (12/06/14) CONTRAST X-RAY ESOPHAGUS (07/10/15) DXA BONE DENSITY AXIAL (12/09/16) ELECTROCARDIOGRAM TRACING (12/03/16) EMERGENCY DEPT VISIT (12/03/16) EMERGENCY DEPT VISIT (07/30/13) HT MUSCLE IMAGE SPECT MULT (08/12/17) ROUTINE VENIPUNCTURE (12/03/16) SCR MAMMO BI INCL CAD (12/20/17) THER/PROPH/DIAG INJ IV PUSH (12/03/16) TISSUE EXAM BY PATHOLOGIST (06/18/14) ULTRASOUND BREAST COMPLETE (12/06/14) X-RAY EXAM OF FOREARM (07/30/13) X-RAY EXAM OF KNEE 3 (07/30/13) X-RAY EXAM OF WRIST (07/30/13) My Orders Last 24 Hours: My Active Orders 07/07/18 20:12 Resuscitation Status Routine 07/07/18 22:08 Acetaminophen 650 mg PO Q8H PRN Propylene Glycol/Peg 400 [Systane Liquid Gel Eye Drops] 1 drop EYEBOTH DAILY PRN 07/07/18 22:13 Metoprolol Tartrate [Lopressor] 5 mg IVPUSH Q4H PRN hydrALAZINE [Apresoline] 10 mg IVPUSH Q4H PRN 07/07/18 22:15 Height and Weight [RC] DAILY Oxygen Therapy [RC] PRN VTE/DVT Education [RC] PER UNIT ROUTINE Vital Signs [RC] Q4H Consult to Case Management/Assistant Family Teacher [CONS] Routine Consult to Marketing Performance Analyst [CONS] Routine Consult to Physician [CONS] Routine Consult to Spiritual Care [CONS] Routine OT Evaluation and Treatment [CONS] Routine PT Evaluation and Treatment [CONS] Routine Acetaminophen [Tylenol] 650 mg PO Q4H PRN Acetaminophen/HYDROcodone [[place] 325-5 MG] 1 tab PO Q4H PRN Albuterol/Ipratropium [DuoNeb 3.0-0.5 MG/3 ML] 3 ml NEB Q4H PRN HYDROmorphone [Dilaudid] 0.25 mg IVPUSH Q2H PRN LORazepam [Ativan] 0.5 mg IV Q6H PRN Levothyroxine [Synthroid] 50 mcg PO ASDIRECTED Ondansetron [Zofran] 4 mg IV Q6H PRN Pharmacy to Dose - Magnesium R [Pharmacy to Dose - Magnesium Replacement] 1 dose .XX ASDIRECTED Pharmacy to Dose - Potassium R [Pharmacy to Dose - Potassium Replacement] 1 dose .XX ASDIRECTED Polyethylene Glycol [Polyox Wsr-301] 17 g PO Q72H Promethazine [Phenergan] 6.25 mg Sodium Chloride 0.9% [Normal Saline] 50 ml IV Q6H Temazepam [Restoril] 15 mg PO BEDTIME PRN 07/07/18 22:16 Antiembolic Devices [RC] PER UNIT ROUTINE Cardiac Monitoring [RC] CONTINUOUS Intake and Output [RC] QSHIFT Sequential Compression Device [OM.PC] Per Unit Routine 07/07/18 22:18 RT Aerosol Therapy [RC] ASDIRECTED 07/07/18 22:20 Notify Provider Consults [RC] ASDIRECTED 07/07/18 22:23 Potassium Chloride [Klor-Con M20] 60 meq PO ASDIRECTED ONE 07/07/18 Dinner Nothing per Oral Now Diet [DIET] 07/08/18 05:11 BASIC METABOLIC PANEL,BMP [CHEM] AM C-REACTIVE PROTEIN [CHEM] AM CBC WITH AUTO DIFF [HEME] AM MAGNESIUM [CHEM] AM 07/08/18 07:00 Lactulose [Cephulac] 20 gm PO Q6H Metoclopramide [Reglan] 5 mg IVPUSH TID@0700,1400,2100 07/08/18 08:00 Bisacodyl [Dulcolax] 10 mg RECTAL BID 07/08/18 09:00 Atenolol [Tenormin] 50 mg PO DAILY Calcium Carbonate/Vitamin D3 [Caltrate 600 Plus D3 Tablet] 1 each PO BID Cyanocobalamin (Vitamin B12) [Vitamin B12] 1,000 mcg PO DAILY Diclofenac Sodium [Voltaren 1% Gel] 1 gm TOP BID Diltiazem [Cardizem CD] 120 mg PO DAILY Fluticasone Propionate [Flonase Allergy Relief] 1 spray CATHY BID Folic Acid 0.5 mg PO DAILY Loratadine [Loratadine] 10 mg PO DAILY Multivitamin [Multivitamins] 1 each PO DAILY Omeprazole 20 mg PO DAILY Rosuvastatin Calcium [Rosuvastatin Calcium] 20 mg PO DAILY Sertraline [Zoloft] 75 mg PO DAILY guaiFENesin [Mucinex] 1,200 mg PO BID 07/08/18 21:00 Melatonin [Melatonin] 5 mg PO BEDTIME 07/08/18 Breakfast Heart Healthy Diet [DIET] 07/09/18 05:11 BASIC METABOLIC PANEL,BMP [CHEM] AM C-REACTIVE PROTEIN [CHEM] AM CBC WITH AUTO DIFF [HEME] AM MAGNESIUM [CHEM] AM 07/10/18 05:11 BASIC METABOLIC PANEL,BMP [CHEM] AM C-REACTIVE PROTEIN [CHEM] AM CBC WITH AUTO DIFF [HEME] AM MAGNESIUM [CHEM] AM 07/11/18 05:11 BASIC METABOLIC PANEL,BMP [CHEM] AM C-REACTIVE PROTEIN [CHEM] AM CBC WITH AUTO DIFF [HEME] AM MAGNESIUM [CHEM] AM
--- NOTE | 2018-07-07 22:50 | PCM.SN ---
- Free Text/Narrative Note: This is a 72 yo elderly white female with significant past medical hx/o Diastolic HF, HTN, HLD, CAD, CKD Unknown Stage, Hx/o PAFIB on Eliquis, Osteoporosis, ET, Hx/o Renal Stones, Hypothyroidism, Depression and Raynaud's Disease who comes in due to worsening intermittent rectal bleed with painful bowel movement. She has been constipated in the past couple of weeks and was told to take Miralax per PCP. She reports a hx/o hemorrhoids. She is on high dose heart failure regimen and with her underlying CKD, this worsened her hydration state and constipation. Her abdominal x-ray showed increased colonic stools. With her being on blood thinner, this would explain why she experiences intermittent rectal bleed with each bowel movement. We will hold her Eliquis for now and use SCDs for DVT/Stroke prophylaxis. Lactulose/Bisacodyl Suppository starting in AM until bowel movement. Consult Dr. Burleson for rectal bleed since it has been a while since she had a colonoscopy. NPO for tonight except ice chips, sips of water and oral medications. We will start diet in AM.
[2018-07-07] MEDS: Temazepam 15 MG Cap PO PRN (23:44)
[2018-07-08] MEDS ORDERED: Polyethylene Glycol 3350 Powder 17 GM Packet PO ONE (00:15)
[2018-07-08] MEDS ORDERED: Potassium Chloride 20 MEQ Tab.ER PO ONE ×2 (00:15→09:30)
[2018-07-08] MEDS ORDERED: Levothyroxine 50 MCG Tab PO SCH ×2 (01:15→06:00)
[2018-07-08] MEDS ORDERED: Levothyroxine 25 MCG Tab PO SCH (06:00)
[2018-07-08] MEDS: Calcium Carbonate/Vitamin D3 600 MG-200 Units Tab PO SCH ×2 (06:47→18:19)
[2018-07-08] MEDS: Lactulose Soln 10 GM/15 ML 30 ML UD Cup PO SCH ×4 (06:47→23:30)
[2018-07-08] MEDS: Levothyroxine 50 MCG Tab PO SCH (06:48)
[2018-07-08] MEDS: Metoclopramide 10 MG/2 ML SDV IVPUSH SCH ×3 (06:48→22:24)
[2018-07-08] MEDS: Pantoprazole 40 MG Tab.CR PO SCH (06:48)
--- NOTE | 2018-07-08 07:15 | CR ---
Chest: AP view of the chest was obtained. Comparison: Previous chest x-ray of 12/03/16. Heart is slightly enlarged. Tortuous thoracic aorta is seen. Bilateral shoulder prosthesis are noted. Lungs are clear with no acute parenchymal change. No acute pulmonary vascular congestion is seen. Impression: 1. Stable findings as noted above. Nothing acute is seen on AP chest x-ray. Diagnostic code #2
--- NOTE | 2018-07-08 07:15 | CR ---
Abdomen: Supine view of the abdomen was obtained. Comparison: No prior abdominal x-ray. Bilateral shoulder prosthesis are seen as well as bilateral hip prosthesis. Scattered degenerative change throughout the spine is noted with mild scoliosis. Calcifications are seen within the upper right abdomen most likely due to calcified gallstones. Multiple renal calculi are also seen within both kidneys. Bowel gas pattern is normal. No free air is seen. Impression: 1. Multiple findings as noted above. Nothing acute is appreciated. Diagnostic code #2
[2018-07-08] MEDS ORDERED: Loratadine 10 MG Tab PO SCH (09:00)
[2018-07-08] MEDS ORDERED: Potassium Chloride 10 MEQ Tab.ER PO SCH (09:00)
[2018-07-08] MEDS: Rosuvastatin 10 MG Tab PO SCH (09:12)
[2018-07-08] MEDS: Multivitamins,Therapeutic Tab PO SCH (09:13)
[2018-07-08] MEDS: Sertraline 50 MG Tab PO SCH (09:13)
[2018-07-08] MEDS: Cyanocobalamin (Vitamin B12) 1,000 MCG Tab PO SCH (09:13)
[2018-07-08] MEDS: Folic Acid 1 MG Tab PO SCH (09:13)
[2018-07-08] MEDS: Diltiazem 120 MG Cap.CD PO SCH ×2 (09:14→09:25)
--- NOTE | 2018-07-08 09:14 | PCM.HP ---
H&P History of Present Illness - General Date of Service: 07/08/18 Admit Problem/Dx: Admission Diagnosis/Problem Admission Diagnosis/Problem Gastrointestinal hemorrhage Source of Information: Patient, Old Records, Provider, RN, RN Notes Reviewed History Limitations: Reports: No Limitations - History of Present Illness Initial Comments - Free Text/Narative: Santos Macias is a 72 yo female who presents to our ED on 07/07/18 the [facility] with concerns over persistent bleeding per her rectum with each bowel movement and occasional straight blood with no stool. She does have a history of hemorrhoids but unsure if they're internal or external. Ahlquist for chronic A. fib. She's been recently constipated and more short of breath. She states she is worn out not able to look after herself in terms of getting food and proper nutrition. She has severe CHF and uses 80 mg of Lasix twice a day. Reports she is getting weaker daily and unable to stand for long periods due to lightheadedness and difficulty making it to the restroom. She isn't wearing a pad at night because of persistent oozing blood per rectum. She reports she is having very painful bowel movements and has been trying laxatives but still has firm stool and difficulty passing stool. She reports symptoms lasted for the past 3-4 days intermittently. She does have a pacemaker. 12-lead EKG was obtained showing 100% paced rhythm at 60 bpm with left axis deviation and a wide QRS complexes. Temp is 36.3 Celsius. Pulse 71. Respirations 17. Blood pressure low at 80/63. Pulse ox 97%. Anal: WBC is elevated at 14.03. Hemoglobin high at 17.9. Hematocrit high at 50.9. She is normocytic. Her cigarette 185,000. Neutrophils elevated at 84%. There is no bandemia. PT is 12.5. INR 1.15. APTT is 27. Sodium is quite low at 128. Potassium low at 2.8. Chloride low at 87. Anion gap was high at 17.8. BUN is very high at 133. Creatinine is 2.3. EGFR is 21. Glucose is high at 169. Calcium high at 12.4. Magnesium high at 3.7. Bilirubin 0.8. AST is 34, ALT 35 , alkaline phosphatase 79. Troponin is elevated 0.104. CRP is high at 2.3. Protein is high at 8.8. Albumin 4.2. Elevated at 5776. She is a positive. She is placed on 2 L/m of oxygen bring her sats up to 96-97%. 1 view of the abdomen was obtained and interpreted by Dr. Ross as showing nothing acute. There are multiple incidental findings includingCalcifications are seen within the upper right abdomen most likely due to calcified gallstones. Multiple renal calculi are also seen within both kidneys. Bowel gas pattern is normal. Chest x-rays obtained and shows stable findings with nothing acute. ED provider performs rigid sigmoidoscopy advancing sigmoidoscope as high as 15 cm. He was unable see anything but blood above this. She does have some internal and external hemorrhoids but no active bleeding is present. Blood is coming from the GI tract. H. pylori is obtained and is negative. She started on IV fluids and given K riders to help increase her potassium. She has been taking Ahlquist 5 mg twice a day however due to her renal function she should probably be on 2.5 mg twice a day. Heris listed as extremely guarded. She carries a history of diastolic heart failure, HLD, hypertension, pacemaker placement, shortness of breath on exertion, renal disease, hypothyroidism osteoporosis, renal stones, Raynauds syndrome. She is a DNR/DNI. Her PCP is Dr. Mcneal. - Related Data Allergies/Adverse Reactions: Allergies Allergy/AdvReac Type Severity Reaction Status Date / Time ACEINHIBITORS Allergy Intermediate Edema Verified 12/03/16 19:40 [MELYSSA Inhibitors] hydrochlorothiazide Allergy Intermediate unknown Verified 12/03/16 18:04 tetracycline [Tetracycline] Allergy Intermediate Hives Verified 12/03/16 19:41 Home Medications: Home Meds Atenolol 50 mg PO DAILY 07/30/13 [History] Calcium Carbonate/Vitamin D3 [Caltrate-600 with Vit D Tab] 1 each PO BID [History] Folic Acid 0.5 mg PO DAILY 07/30/13 [History] Furosemide [Lasix] 80 mg PO BID 07/30/13 [History] Levothyroxine [Synthroid] 50 mcg PO ASDIRECTED 07/30/13 [History] Levothyroxine [Synthroid] 100 mcg PO ASDIRECTED 07/30/13 [History] Multivitamin [Multivitamins] 1 each PO DAILY 07/30/13 [History] Omeprazole [Prilosec] 20 mg PO DAILY 07/30/13 [History] Potassium Chloride [Klor-Con 10] 20 meq PO QAM 07/30/13 [History] Propylene Glycol/Peg 400 [Systane Liquid Gel Eye Drops] 1 drop EYEBOTH DAILY PRN 07/30/13 [History] Acetaminophen [Tylenol Arthritis Pain] 650 mg PO Q8H PRN 07/07/18 [History] Apixaban [Eliquis] 5 mg PO BID 07/07/18 [History] Cyanocobalamin (Vitamin B-12) [B-12] 1,000 mcg PO DAILY 07/07/18 [History] Diclofenac Sodium [Voltaren 1% Gel] 2 gm TOP BID PRN 07/07/18 [History] Diltiazem [Cardizem CD] 120 mg PO DAILY 07/07/18 [History] Docusate Sodium 200 mg PO DAILY 07/07/18 [History] Fluticasone Propionate [Flonase Allergy Relief] 1 spray CATHY BID 07/07/18 [ History] Loratadine 10 mg PO DAILY 07/07/18 [History] Melatonin 5 mg PO BEDTIME 07/07/18 [History] Polyethylene Glycol [Polyox Wsr-301] 17 g PO Q72H 07/07/18 [History] Rosuvastatin Calcium 20 mg PO DAILY 07/07/18 [History] Sertraline [Zoloft] 75 mg PO QPM 07/07/18 [History] guaiFENesin [Mucinex] 1,200 mg PO BID 07/07/18 [History] Potassium Chloride [K-Tab ER] 10 meq PO QPM 07/08/18 [History] metOLazone [Metolazone] 5 mg PO MOFR 07/08/18 [History] Past Medical History HEENT History: Reports: Other (See Below) Other HEENT History: Pt wears glasses, cataaracts starting Cardiovascular History: Reports: Cardiomyopathy, Heart Failure, High Cholesterol , Hypertension, Pacemaker, SOB on Exertion Respiratory History: Reports: SOB Gastrointestinal History: Reports: Hemorrhoids, Hiatal Hernia Genitourinary History: Reports: Renal Calculus, Renal Disease, Other (See Below) Other Genitourinary History: Bilat stones present in kidneys Musculoskeletal History: Reports: Arthritis, Back Pain, Chronic Psychiatric History: Reports: Anxiety, Depression Endocrine/Metabolic History: Reports: Hypothyroidism, Obesity/BMI 30+ Dermatologic History: Reports: Other (See Below) Other Dermatologic History: Severe dryness - Infectious Disease History Infectious Disease History: Reports: Chicken Pox, Measles - Past Surgical History Cardiovascular Surgical History: Reports: Other (See Below) Other Cardiovascular Surgeries/Procedures: Catheterized X2 Respiratory Surgical History: Reports: None GI Surgical History: Reports: Hernia Repair/Other Endocrine Surgical History: Reports: None Musculoskeletal Surgical History: Reports: Hip Replacement, Shoulder Surgery Other Musculoskeletal Surgeries/Procedures:: X 2 Hips, X2 shoulders Social & Family History - Family History Family Medical History: Noncontributory - Tobacco Use Smoking Status *Q: Former Smoker Years of Tobacco use: 13 Packs/Tins Daily: 0.7 Used Tobacco, but Quit: Yes Month/Year Tobacco Last Used: 2003 Second Hand Smoke Exposure: No - Caffeine Use Caffeine Use: Reports: Coffee, Soda Other Caffeine Use: Last use greater than 1 week, 6 cups per day and 1 can per day - Alcohol Use Date of Last Drink: 06/19/18 - Recreational Drug Use Recreational Drug Use: No - Living Situation & Occupation Living situation: Reports: Occupation: Retired H&P Review of Systems - Review of Systems: Review Of Systems: See Below General: Reports: Malaise, Weakness, Fatigue, Decreased Appetite (has primarily been eating boost and coffee for intake ). Denies: Fever, Chills HEENT: Reports: No Symptoms. Denies: Headaches, Sore Throat Pulmonary: Reports: Shortness of Breath (reports occasional - improved when lying down ). Denies: Wheezing, Cough, Sputum Cardiovascular: Reports: Dyspnea on Exertion. Denies: Chest Pain, Palpitations , Orthopnea (patient lying flat in bed resting ), Edema, Lightheadedness Gastrointestinal: Reports: Constipation, Hematochezia. Denies: Abdominal Pain, Diarrhea, Hematemesis, Melena, Nausea, Vomiting Genitourinary: Reports: No Symptoms Musculoskeletal: Reports: No Symptoms Skin: Reports: No Symptoms Psychiatric: Reports: No Symptoms Neurological: Reports: Weakness. Denies: Confusion, Dizziness, Headache, Numbness, Tingling, Trouble Speaking, Difficulty Walking, Change in Speech, Gait Disturbance Hematologic/Lymphatic: Reports: No Symptoms Immunologic: Reports: No Symptoms Exam - Exam Exam: See Below - Vital Signs Vital Signs: Last Vital Signs Temp 97.5 F 07/08/18 09:05 Pulse 65 07/08/18 09:05 Resp 16 07/08/18 09:05 BP 113/66 07/08/18 09:05 Pulse Ox 94 L 07/08/18 09:05 Weight: 171 lb 9.6 oz - Exam Quality Assessment: DVT Prophylaxis General: Alert, Oriented, Cooperative. No: Mild Distress HEENT: Conjunctiva Clear, EACs Clear, EOMI, Hearing Intact, Mucosa Moist & Mango , Normal Nasal Septum, Posterior Pharynx Clear Neck: Supple, Trachea Midline, JVD Lungs: Clear to Auscultation, Normal Respiratory Effort Cardiovascular: Irregular Rhythm (A-fib ). No: Regular Rate GI/Abdominal Exam: Normal Bowel Sounds, Soft, Non-Tender, No Distention, No Abnormal Bruit (Female) Exam: Deferred Rectal (Female) Exam: Deferred, Other (Repots rectal pain 2/2 hemorrhoids ) Back Exam: Normal Inspection, Full Range of Motion Extremities: Normal Inspection, Normal Range of Motion, Non-Tender, No Pedal Edema, Normal Capillary Refill, Other (Cool lower extremities - chronic 2/2 raynauds ) Peripheral Pulses: 2+: Dorsalis Pedis (L), Dorsalis Pedis (R), 3+: Radial (L), Radial (R) Skin: Warm, Dry, Intact Neurological: Cranial Nerves Intact (grossly ) Neuro Extensive - Mental Status: Alert, Oriented x3, Normal Mood/Affect - Patient Data Lab Results Last 24 hrs: Laboratory Results - last 24 hr 07/07/18 07/07/18 07/07/18 Range/Units 17:00 17:00 17:00 WBC 14.03 H (3.98-10.04) K/mm3 RBC 5.88 H (3.98-5.22) M/mm3 Hgb 17.9 H (11.2-15.7) gm/L Hct 50.9 H (34.1-44.9) % MCV 86.6 (79.4-94.8) fl MCH 30.4 (25.6-32.2) pg MCHC 35.2 (32.2-35.5) g/dl RDW Std Deviation 46.8 H (36.4-46.3) fL Plt Count 185 (182-369) K/mm3 MPV 11.7 (9.4-12.3) fl Neut % (Auto) (34.0-71.1) % Lymph % (Auto) (19.3-51.7) % [place] % (Auto) (4.7-12.5) % Eos % (Auto) (0.7-5.8) Baso % (Auto) (0.1-1.2) % Neut # (Auto) (1.56-6.13) K/mm3 Lymph # (Auto) (1.18-3.74) K/mm3 [place] # (Auto) (0.24-0.36) K/mm3 Eos # (Auto) (0.04-0.36) K/mm3 Baso # (Auto) (0.01-0.08) K/mm3 Neutrophils % (Manual) 84 H (40-60) % Band Neutrophils % 0 (0-10) % Lymphocytes % (Manual) 9 L (20-40) % Atypical Lymphs % 0 % Monocytes % (Manual) 7 (2-10) % Eosinophils % (Manual) 0 L (0.7-5.8) % Basophils % (Manual) 0 L (0.1-1.2) Manual Slide Review Platelet Estimate Adequate RBC Morph Comment Normal PT 12.5 H (9.5-12.1) SECONDS INR 1.15 APTT 27 (24-31) SECONDS Sodium 128 L (136-145) mEq/L Potassium 2.8 L (3.5-5.1) mEq/L Chloride 87 L (98-107) mEq/L Carbon Dioxide 26 (21-32) mEq/L Anion Gap 17.8 H (5-15) BUN 133 H (7-18) mg/dL Creatinine 2.3 H (0.55-1.02) mg/dL Est Cr Clr Drug Dosing 17.49 mL/min Estimated GFR (MDRD) 21 (>60) mL/min BUN/Creatinine Ratio 57.8 H (14-18) Glucose 169 H (83-115) mg/dL Calcium 12.4 H (8.5-10.1) mg/dL Magnesium 3.7 H (1.8-2.4) mg/dl Total Bilirubin 0.8 (0.2-1.0) mg/dL AST 34 (15-37) U/L ALT 35 (14-59) U/L Alkaline Phosphatase 79 (46-116) U/L Troponin I 0.104 H* (0.00-0.056) ng/mL C-Reactive Protein 2.3 H* (<1.0) mg/dL NT-Pro-B Natriuret Pep (0-125) pg/mL Total Protein 8.8 H (6.4-8.2) g/dl Albumin 4.2 (3.4-5.0) g/dl Globulin 4.6 gm/dL Albumin/Globulin Ratio 0.9 L (1-2) Urine Color (Yellow) Urine Appearance (Clear) Urine pH (5.0-8.0) Ur Specific [place] (1.005-1.030) Urine Protein (Negative) Urine Glucose (UA) (Negative) Urine Ketones (Negative) Urine Occult Blood (Negative) Urine Nitrite (Negative) Urine Bilirubin (Negative) Urine Urobilinogen (0.2-1.0) Ur Leukocyte Esterase (Negative) Urine RBC (0-5) /hpf Urine WBC (0-5) /hpf Ur Epithelial Cells (0-5) /hpf Urine Bacteria (FEW) /hpf Urine Mucus (FEW) /hpf H. pylori IgG Antibody (NEGATIVE) Blood Type Gel Antibody Screen 07/07/18 07/07/18 07/07/18 Range/Units 17:00 17:00 17:00 WBC (3.98-10.04) K/mm3 RBC (3.98-5.22) M/mm3 Hgb (11.2-15.7) gm/L Hct (34.1-44.9) % MCV (79.4-94.8) fl MCH (25.6-32.2) pg MCHC (32.2-35.5) g/dl RDW Std Deviation (36.4-46.3) fL Plt Count (182-369) K/mm3 MPV (9.4-12.3) fl Neut % (Auto) (34.0-71.1) % Lymph % (Auto) (19.3-51.7) % [place] % (Auto) (4.7-12.5) % Eos % (Auto) (0.7-5.8) Baso % (Auto) (0.1-1.2) % Neut # (Auto) (1.56-6.13) K/mm3 Lymph # (Auto) (1.18-3.74) K/mm3 [place] # (Auto) (0.24-0.36) K/mm3 Eos # (Auto) (0.04-0.36) K/mm3 Baso # (Auto) (0.01-0.08) K/mm3 Neutrophils % (Manual) (40-60) % Band Neutrophils % (0-10) % Lymphocytes % (Manual) (20-40) % Atypical Lymphs % % Monocytes % (Manual) (2-10) % Eosinophils % (Manual) (0.7-5.8) % Basophils % (Manual) (0.1-1.2) Manual Slide Review Platelet Estimate RBC Morph Comment PT (9.5-12.1) SECONDS INR APTT (24-31) SECONDS Sodium (136-145) mEq/L Potassium (3.5-5.1) mEq/L Chloride (98-107) mEq/L Carbon Dioxide (21-32) mEq/L Anion Gap (5-15) BUN (7-18) mg/dL Creatinine (0.55-1.02) mg/dL Est Cr Clr Drug Dosing mL/min Estimated GFR (MDRD) (>60) mL/min BUN/Creatinine Ratio (14-18) Glucose (83-115) mg/dL Calcium (8.5-10.1) mg/dL Magnesium (1.8-2.4) mg/dl Total Bilirubin (0.2-1.0) mg/dL AST (15-37) U/L ALT (14-59) U/L Alkaline Phosphatase (46-116) U/L Troponin I (0.00-0.056) ng/mL C-Reactive Protein (<1.0) mg/dL NT-Pro-B Natriuret Pep 5776 H (0-125) pg/mL Total Protein (6.4-8.2) g/dl Albumin (3.4-5.0) g/dl Globulin gm/dL Albumin/Globulin Ratio (1-2) Urine Color (Yellow) Urine Appearance (Clear) Urine pH (5.0-8.0) Ur Specific [place] (1.005-1.030) Urine Protein (Negative) Urine Glucose (UA) (Negative) Urine Ketones (Negative) Urine Occult Blood (Negative) Urine Nitrite (Negative) Urine Bilirubin (Negative) Urine Urobilinogen (0.2-1.0) Ur Leukocyte Esterase (Negative) Urine RBC (0-5) /hpf Urine WBC (0-5) /hpf Ur Epithelial Cells (0-5) /hpf Urine Bacteria (FEW) /hpf Urine Mucus (FEW) /hpf H. pylori IgG Antibody Negative (NEGATIVE) Blood Type A POSITIVE Gel Antibody Screen Negative 07/08/18 07/08/18 07/08/18 Range/Units 04:30 05:35 05:35 WBC 8.53 (3.98-10.04) K/mm3 RBC 5.35 H (3.98-5.22) M/mm3 Hgb 16.5 H (11.2-15.7) gm/L Hct 47.8 H (34.1-44.9) % MCV 89.3 (79.4-94.8) fl MCH 30.8 (25.6-32.2) pg MCHC 34.5 (32.2-35.5) g/dl RDW Std Deviation 49.2 H (36.4-46.3) fL Plt Count 141 L (182-369) K/mm3 MPV 11.6 (9.4-12.3) fl Neut % (Auto) 72.7 H (34.0-71.1) % Lymph % (Auto) 9.6 L (19.3-51.7) % [place] % (Auto) 17.2 H (4.7-12.5) % Eos % (Auto) 0.2 L (0.7-5.8) Baso % (Auto) 0.1 (0.1-1.2) % Neut # (Auto) 6.19 H (1.56-6.13) K/mm3 Lymph # (Auto) 0.82 L (1.18-3.74) K/mm3 [place] # (Auto) 1.47 H (0.24-0.36) K/mm3 Eos # (Auto) 0.02 L (0.04-0.36) K/mm3 Baso # (Auto) 0.01 (0.01-0.08) K/mm3 Neutrophils % (Manual) (40-60) % Band Neutrophils % (0-10) % Lymphocytes % (Manual) (20-40) % Atypical Lymphs % % Monocytes % (Manual) (2-10) % Eosinophils % (Manual) (0.7-5.8) % Basophils % (Manual) (0.1-1.2) Manual Slide Review Normal smear Platelet Estimate RBC Morph Comment PT (9.5-12.1) SECONDS INR APTT (24-31) SECONDS Sodium 132 L (136-145) mEq/L Potassium 3.4 L (3.5-5.1) mEq/L Chloride 92 L (98-107) mEq/L Carbon Dioxide 27 (21-32) mEq/L Anion Gap 16.4 H (5-15) BUN 128 H (7-18) mg/dL Creatinine 2.1 H (0.55-1.02) mg/dL Est Cr Clr Drug Dosing 18.27 mL/min Estimated GFR (MDRD) 23 (>60) mL/min BUN/Creatinine Ratio 61.0 H (14-18) Glucose 109 (83-115) mg/dL Calcium 10.3 H (8.5-10.1) mg/dL Magnesium 3.5 H (1.8-2.4) mg/dl Total Bilirubin (0.2-1.0) mg/dL AST (15-37) U/L ALT (14-59) U/L Alkaline Phosphatase (46-116) U/L Troponin I (0.00-0.056) ng/mL C-Reactive Protein 2.1 H* (<1.0) mg/dL NT-Pro-B Natriuret Pep (0-125) pg/mL Total Protein (6.4-8.2) g/dl Albumin (3.4-5.0) g/dl Globulin gm/dL Albumin/Globulin Ratio (1-2) Urine Color Yellow (Yellow) Urine Appearance Clear (Clear) Urine pH 6.5 (5.0-8.0) Ur Specific [place] 1.015 (1.005-1.030) Urine Protein 2+ H (Negative) Urine Glucose (UA) Negative (Negative) Urine Ketones Negative (Negative) Urine Occult Blood 3+ H (Negative) Urine Nitrite Negative (Negative) Urine Bilirubin Negative (Negative) Urine Urobilinogen 0.2 (0.2-1.0) Ur Leukocyte Esterase 2+ H (Negative) Urine RBC 0-5 (0-5) /hpf Urine WBC 10-20 H (0-5) /hpf Ur Epithelial Cells 0-5 (0-5) /hpf Urine Bacteria Not seen (FEW) /hpf Urine Mucus Not seen (FEW) /hpf H. pylori IgG Antibody (NEGATIVE) Blood Type Gel Antibody Screen 07/08/18 Range/Units 05:35 WBC (3.98-10.04) K/mm3 RBC (3.98-5.22) M/mm3 Hgb (11.2-15.7) gm/L Hct (34.1-44.9) % MCV (79.4-94.8) fl MCH (25.6-32.2) pg MCHC (32.2-35.5) g/dl RDW Std Deviation (36.4-46.3) fL Plt Count (182-369) K/mm3 MPV (9.4-12.3) fl Neut % (Auto) (34.0-71.1) % Lymph % (Auto) (19.3-51.7) % [place] % (Auto) (4.7-12.5) % Eos % (Auto) (0.7-5.8) Baso % (Auto) (0.1-1.2) % Neut # (Auto) (1.56-6.13) K/mm3 Lymph # (Auto) (1.18-3.74) K/mm3 [place] # (Auto) (0.24-0.36) K/mm3 Eos # (Auto) (0.04-0.36) K/mm3 Baso # (Auto) (0.01-0.08) K/mm3 Neutrophils % (Manual) (40-60) % Band Neutrophils % (0-10) % Lymphocytes % (Manual) (20-40) % Atypical Lymphs % % Monocytes % (Manual) (2-10) % Eosinophils % (Manual) (0.7-5.8) % Basophils % (Manual) (0.1-1.2) Manual Slide Review Platelet Estimate RBC Morph Comment PT (9.5-12.1) SECONDS INR APTT (24-31) SECONDS Sodium (136-145) mEq/L Potassium (3.5-5.1) mEq/L Chloride (98-107) mEq/L Carbon Dioxide (21-32) mEq/L Anion Gap (5-15) BUN (7-18) mg/dL Creatinine (0.55-1.02) mg/dL Est Cr Clr Drug Dosing mL/min Estimated GFR (MDRD) (>60) mL/min BUN/Creatinine Ratio (14-18) Glucose (83-115) mg/dL Calcium (8.5-10.1) mg/dL Magnesium (1.8-2.4) mg/dl Total Bilirubin (0.2-1.0) mg/dL AST (15-37) U/L ALT (14-59) U/L Alkaline Phosphatase (46-116) U/L Troponin I 0.131 H* (0.00-0.056) ng/mL C-Reactive Protein (<1.0) mg/dL NT-Pro-B Natriuret Pep (0-125) pg/mL Total Protein (6.4-8.2) g/dl Albumin (3.4-5.0) g/dl Globulin gm/dL Albumin/Globulin Ratio (1-2) Urine Color (Yellow) Urine Appearance (Clear) Urine pH (5.0-8.0) Ur Specific [place] (1.005-1.030) Urine Protein (Negative) Urine Glucose (UA) (Negative) Urine Ketones (Negative) Urine Occult Blood (Negative) Urine Nitrite (Negative) Urine Bilirubin (Negative) Urine Urobilinogen (0.2-1.0) Ur Leukocyte Esterase (Negative) Urine RBC (0-5) /hpf Urine WBC (0-5) /hpf Ur Epithelial Cells (0-5) /hpf Urine Bacteria (FEW) /hpf Urine Mucus (FEW) /hpf H. pylori IgG Antibody (NEGATIVE) Blood Type Gel Antibody Screen Result Diagrams: 07/08/18 05:35 07/08/18 05:35 - Problem List (1) Chronic renal insufficiency, stage IV (severe) SNOMED Code(s): 62305598 ICD Code: N18.4 - CHRONIC KIDNEY DISEASE, STAGE 4 (SEVERE) Status: Acute Priority: High Current Visit: Yes (2) Congestive heart failure SNOMED Code(s): 47806516 ICD Code: I50.9 - HEART FAILURE, UNSPECIFIED Status: Acute Priority: High Current Visit: Yes Qualifiers: Heart failure type: diastolic Heart failure chronicity: acute on chronic Qualified Code(s): I50.33 - Acute on chronic diastolic (congestive) heart failure (3) Hypermagnesemia SNOMED Code(s): 31856213 ICD Code: E83.41 - HYPERMAGNESEMIA Status: Acute Priority: Medium Current Visit: Yes (4) Hypokalemia SNOMED Code(s): 83603667 ICD Code: E87.6 - HYPOKALEMIA Status: Acute Priority: High Current Visit: Yes (5) Hyponatremia SNOMED Code(s): 92322755 ICD Code: E87.1 - HYPO-OSMOLALITY AND HYPONATREMIA Status: Acute Priority : High Current Visit: Yes (6) Upper gastrointestinal hemorrhage SNOMED Code(s): 97471016 ICD Code: K92.2 - GASTROINTESTINAL HEMORRHAGE, UNSPECIFIED Status: Acute Priority: High Current Visit: Yes (7) Volume depletion, gastrointestinal loss SNOMED Code(s): 89326030 ICD Code: E86.9 - VOLUME DEPLETION, UNSPECIFIED Status: Acute Priority: High Current Visit: Yes (8) Elevated troponin SNOMED Code(s): 059527234, 233794785, 277570742 ICD Code: R74.8 - ABNORMAL LEVELS OF OTHER SERUM ENZYMES Status: Acute Priority: High Current Visit: Yes Problem List Initiated/Reviewed/Updated: Yes Orders Last 24hrs: Active Orders 24 hr Category Date Time Status Admission Status [Patient Status] [ADT] Routine ADT 07/07/18 19:08 Active Admission Status [Patient Status] [ADT] Routine ADT 07/07/18 19:16 Active Antiembolic Devices [RC] BID Care 07/07/18 22:16 Active Cardiac Monitoring [RC] CONTINUOUS Care 07/07/18 22:16 Active Height and Weight [RC] 04 Care 07/07/18 22:15 Active Intake and Output [RC] 04,16 Care 07/07/18 22:16 Active Oxygen Therapy [RC] PRN Care 07/07/18 22:15 Active Peripheral IV Care [RC] Q2HR Care 07/07/18 17:01 Active RT Aerosol Therapy [RC] ASDIRECTED Care 07/07/18 22:18 Active VTE/DVT Education [RC] DAILY Care 07/07/18 22:15 Active Vital Signs [RC] Q4HR Care 07/07/18 22:15 Active Consult to Case Management/Linux Consultant [CONS] Cons 07/07/18 22:15 Active Routine Consult to [employer] Experimental Mechanic [CONS] Routine Cons 07/07/18 22:15 Active Consult to Physician [CONS] Routine Cons 07/07/18 22:15 Active Consult to Spiritual Care [CONS] Routine Cons 07/07/18 22:15 Active OT Evaluation and Treatment [CONS] Routine Cons 07/07/18 22:15 Active PT Evaluation and Treatment [CONS] Routine Cons 07/07/18 22:15 Active Heart Healthy Diet [DIET] Diet 07/08/18 Breakfast Active BASIC METABOLIC PANEL,BMP [CHEM] AM Lab 07/09/18 05:11 Ordered BASIC METABOLIC PANEL,BMP [CHEM] AM Lab 07/10/18 05:11 Ordered BASIC METABOLIC PANEL,BMP [CHEM] AM Lab 07/11/18 05:11 Ordered C-REACTIVE PROTEIN [CHEM] AM Lab 07/09/18 05:11 Ordered C-REACTIVE PROTEIN [CHEM] AM Lab 07/10/18 05:11 Ordered C-REACTIVE PROTEIN [CHEM] AM Lab 07/11/18 05:11 Ordered CBC WITH AUTO DIFF [HEME] AM Lab 07/09/18 05:11 Ordered CBC WITH AUTO DIFF [HEME] AM Lab 07/10/18 05:11 Ordered CBC WITH AUTO DIFF [HEME] AM Lab 07/11/18 05:11 Ordered CKMB [CHEM] Routine Lab 07/08/18 05:35 Received CKMB [CHEM] Routine Lab 07/08/18 11:00 Ordered MAGNESIUM [CHEM] AM Lab 07/09/18 05:11 Ordered MAGNESIUM [CHEM] AM Lab 07/10/18 05:11 Ordered MAGNESIUM [CHEM] AM Lab 07/11/18 05:11 Ordered TROPONIN I [CHEM] Routine Lab 07/08/18 11:00 Ordered Acetaminophen [Tylenol] Med 07/07/18 22:15 Active 650 mg PO Q4H PRN Acetaminophen/HYDROcodone [[place] 325-5 MG] Med 07/07/18 22:15 Active 1 tab PO Q4H PRN Albuterol/Ipratropium [DuoNeb 3.0-0.5 MG/3 ML] Med 07/07/18 22:15 Active 3 ml NEB Q4H PRN Atenolol [Tenormin] Med 07/08/18 09:00 Active 50 mg PO DAILY Calcium Carbonate/Vitamin D3 [Calcium Carbonate/Vitamin Med 07/08/18 07:00 Active D 600 MG-200 Unit] 1 tab PO BIDMEALS Carboxymethylcellulose Sodium [Refresh Liquigel 1%] Med 07/07/18 22:08 Active 0 ml EYEBOTH DAILY PRN Cyanocobalamin (Vitamin B12) [Vitamin B12] Med 07/08/18 09:00 Active 1,000 mcg PO DAILY Diclofenac Sodium [Voltaren 1% Gel] Med 07/08/18 09:00 Active 0 gm TOP BID Diltiazem [Cardizem CD] Med 07/08/18 09:00 Active 120 mg PO DAILY Flunisolide [Nasalide Nasal [place]] Med 07/08/18 09:00 Active 0 ml CATHY BID Folic Acid Med 07/08/18 09:00 Active 0.5 mg PO DAILY HYDROmorphone [Dilaudid] Med 07/07/18 22:15 Active 0.25 mg IVPUSH Q2H PRN LORazepam [Ativan] Med 07/07/18 22:15 Active 0.5 mg IV Q6H PRN Lactulose [Cephulac] Med 07/08/18 07:00 Active 20 gm PO Q6H Levothyroxine [Synthroid] Med 07/12/18 06:00 Active 100 mcg PO Tu@0600 Levothyroxine [Synthroid] Med 07/08/18 06:00 Active 50 mcg PO SuMoWeThFrSa@0600 Loratadine [Claritin] Med 07/08/18 09:00 Active 10 mg PO DAILY Melatonin Med 07/08/18 21:00 Active 6 mg PO BEDTIME Metoclopramide [Reglan] Med 07/08/18 07:00 Active 5 mg IVPUSH TID@0700,1400,2100 Metoprolol Tartrate [Lopressor] Med 07/07/18 22:13 Active 5 mg IVPUSH Q4H PRN Multivitamins,Therapeutic [Thera] Med 07/08/18 09:00 Active 1 each PO DAILY Ondansetron [Zofran] Med 07/07/18 22:15 Active 4 mg IV Q6H PRN Pantoprazole [ProTONIX] Med 07/08/18 06:00 Active 40 mg PO ACBREAKFAST Pharmacy to Dose - Magnesium R [Pharmacy to Dose - Med 07/07/18 22:15 Active Magnesium Replacement] 0 dose .XX ASDIRECTED PRN Pharmacy to Dose - Potassium R [Pharmacy to Dose - Med 07/07/18 22:15 Active Potassium Replacement] 0 dose .XX ASDIRECTED PRN Polyethylene Glycol 3350 [MiraLAX] Med 07/10/18 22:00 Active 17 gm PO Q72H Promethazine [Phenergan] 6.25 mg Med 07/07/18 22:15 Active Sodium Chloride 0.9% [Normal Saline] 50 ml IV Q6H Rosuvastatin [Crestor] Med 07/08/18 09:00 Active 20 mg PO DAILY Sertraline [Zoloft] Med 07/08/18 09:00 Active 75 mg PO DAILY Sodium Chloride 0.9% [Normal Saline] 1,000 ml Med 07/07/18 18:45 Active IV ASDIRECTED Sodium Chloride 0.9% [Saline Flush] Med 07/07/18 17:01 Active 10 ml FLUSH ASDIRECTED PRN Temazepam [Restoril] Med 07/07/18 22:15 Active 15 mg PO BEDTIME PRN guaiFENesin [Mucinex] Med 07/08/18 09:00 Active 1,200 mg PO BID hydrALAZINE [Apresoline] Med 07/07/18 22:13 Active 10 mg IVPUSH Q4H PRN Peripheral IV Insertion Adult [OM.PC] Stat Oth 07/07/18 17:00 Ordered Sequential Compression Device [OM.PC] Per Unit Routine Oth 07/07/18 22:16 Ordered Resuscitation Status Routine Resus Stat 07/07/18 20:12 Ordered Medication Orders Acetaminophen (Tylenol) 650 mg PO Q4H PRN PRN Reason: Pain (Mild 1-3)/fever Hydrocodone Bitart/Acetaminophen ([place] 325-5 Mg) 1 tab PO Q4H PRN PRN Reason: Pain (moderate 4-6) Albuterol/Ipratropium (Duoneb 3.0-0.5 Mg/3 Ml) 3 ml NEB Q4H PRN PRN Reason: Shortness Of Breath/wheezing Artificial Tears (Refresh Liquigel 1%) 0 ml EYEBOTH DAILY PRN PRN Reason: Dry Eyes Atenolol (Tenormin) 50 mg PO DAILY [facility] Calcium Carbonate (Calcium Carbonate/Vitamin D 600 Mg-200 Unit) 1 tab PO BIDMEALS [facility] Last Admin: 07/08/18 06:47 Dose: 1 tab Cyanocobalamin (Vitamin B12) 1,000 mcg PO DAILY [facility] Diclofenac Sodium (Voltaren 1% Gel) 0 gm TOP BID [facility] Diltiazem HCl (Cardizem Cd) 120 mg PO DAILY [facility] Flunisolide (Nasalide Nasal [place]) 0 ml CATHY BID [facility] Folic Acid (Folic Acid) 0.5 mg PO DAILY [facility] Guaifenesin (Mucinex) 1,200 mg PO BID [facility] Hydralazine HCl (Apresoline) 10 mg IVPUSH Q4H PRN PRN Reason: Hypertension Hydromorphone HCl (Dilaudid) 0.25 mg IVPUSH Q2H PRN PRN Reason: Pain (severe 7-10) Sodium Chloride (Normal Saline) 1,000 mls @ 50 mls/hr IV ASDIRECTED [facility] Last Admin: 07/07/18 19:09 Dose: 50 mls/hr Promethazine HCl 6.25 mg/ (Sodium Chloride) 50.25 mls @ 100 mls/hr IV Q6H PRN PRN Reason: Nausea/Vomiting Lactulose (Cephulac) 20 gm PO Q6H [facility] Last Admin: 07/08/18 06:47 Dose: 20 gm Levothyroxine Sodium (Synthroid) 50 mcg PO SuMoWeThFrSa@0600 [facility] Last Admin: 07/08/18 06:48 Dose: 50 mcg Levothyroxine Sodium (Synthroid) 100 mcg PO Tu@0600 [facility] Loratadine (Claritin) 10 mg PO DAILY [facility] Lorazepam (Ativan) 0.5 mg IV Q6H PRN PRN Reason: Anxiety Magnesium Sulfate (Pharmacy To Dose - Magnesium Replacement) 0 dose .XX ASDIRECTED PRN PRN Reason: RX TO WATCH MAG LEVELS Melatonin (Melatonin) 6 mg PO BEDTIME [facility] Metoclopramide HCl (Reglan) 5 mg IVPUSH TID@0700,1400,2100 [facility] Stop: 07/08/18 21:01 Last Admin: 07/08/18 06:48 Dose: 5 mg Metoprolol Tartrate (Lopressor) 5 mg IVPUSH Q4H PRN PRN Reason: Tachycardia Multivitamins (Thera) 1 each PO DAILY [facility] Ondansetron HCl (Zofran) 4 mg IV Q6H PRN PRN Reason: Nausea/Vomiting Pantoprazole Sodium (Protonix) 40 mg PO ACBREAKFAST [facility] Last Admin: 07/08/18 06:48 Dose: 40 mg Polyethylene Glycol (Miralax) 17 gm PO Q72H [facility] Potassium Chloride (Pharmacy To Dose - Potassium Replacement) 0 dose .XX ASDIRECTED PRN PRN Reason: RX TO WATCH K LEVELS Rosuvastatin Calcium (Crestor) 20 mg PO DAILY [facility] Sertraline HCl (Zoloft) 75 mg PO DAILY [facility] Sodium Chloride (Saline Flush) 10 ml FLUSH ASDIRECTED PRN PRN Reason: Keep Vein Open Last Admin: 07/07/18 17:33 Dose: 10 ml Temazepam (Restoril) 15 mg PO BEDTIME PRN PRN Reason: Sleep Last Admin: 07/07/18 23:44 Dose: 15 mg Assessment/Plan Comment:: I/P: Acute: GI Bleed -Reports bleeding per rectum for past 3-4 days along with constipation -Hx/ of hemorrhoids but unsure what type; on eliquis daily for A-fib -Has to wear pad at night due to oozing of blood from rectum -Abdominal X-ray in ED shows increased colonic stools -Sigmoidoscopy performed in ED: * Advanced to 15cm * Could see nothing but blood * Internal and external hemorrhoids noted with no active bleeding evident -Hgb 17.9-->16.5 -Hct 50.9-->47.8 -PT 12.5; INR 1.15; APTT 27 -NPO overnight - advance to clear liquids -Lactulose/bisacodyl suppository starting in AM until BM -Hold Eliquis -Reports last colonoscopy was a long time ago -Dr. Burleson, general surgery consult -Continue to hold Eliquis -Advance diet to clear liquids for now -NPO after midnight on Wednesday07/11/18 -Bowel prep Wednesday07/10/18 -Endoscopy Wednesday07/11/18 Hyponatremia, improving -Reports she has not been eating or drinking much with dificulty caring for herself -Sodium 128-->132 -IV fluids as ordered -Monitor Hypokalemia, improving -2/2 inadequate intake -Potassium 2.8-->3.4 -Supplement -Pharmacy to monitor and supplement Kidney failure -Acute on chronic -Last visit of 11/2016 showed creatinine of 1.0 and eGFR of 55 -Unsure of recent baseline -BUN 133-->128 -Creatinine 2.3-->2.1 -eGFR 21-->23 -Will likely need eliquis decreased from 5mg to 2.5 mg on discharge -IV fluids as ordered - caution with worsening heart failure Elevated troponin, trending down -Troponin 0.104-->0.131-->0.100 -CKMB 7.5-->7.9 -12-lead EKG shows 100% ventricular paced rhythm -Significant cardiac history including diastolic HF, HTN, HLD, CAD, A-fib on eliquis, Pacemaker -Likely troponin leak from chronic heart issues -Trend troponins/CKMB -BNP 5776 Chronic: Diastolic HF HLD HTN Pacemaker Renal disease Hypothyroidism Hx/o A-fib on eliquis Osteoporosis Renal stones Depression Raynauds syndrome Plan: Admit to medical floor on telemetry Home medications as ordered Other orders as indicated above PT/OT CM/SW - reports difficulty managing at home Spiritual care consult [employer] consult Routine AM labs DVT prophylaxis: SCDs - Hold home eliquis due to GI bleed Code status: DNR/DNI; PCP: Dr. Mcneal
[2018-07-08] MEDS: guaiFENesin 600 MG Tab.ER PO SCH ×2 (09:15→22:22)
[2018-07-08] MEDS: Bisacodyl 10 MG Supp RECTAL SCH ×3 (09:15→22:21)
[2018-07-08] MEDS: Atenolol 50 MG Tab PO SCH ×2 (09:15→09:25)
[2018-07-08] MEDS: Diclofenac Sodium 1% Gel 100 GM Tube TOP SCH ×2 (09:17→22:25)
[2018-07-08] MEDS: Sodium Chloride 0.9% 1,000 ML IV SCH ×2 (09:42→17:57)
--- NOTE | 2018-07-08 11:18 | PCM.CONSN ---
- General Info Date of Service: 07/08/18 - Patient Data Vitals - Most Recent: Last Vital Signs Temp 97.5 F 07/08/18 09:05 Pulse 67 07/08/18 09:25 Resp 16 07/08/18 09:05 BP 113/66 07/08/18 09:25 Pulse Ox 94 L 07/08/18 09:05 Weight - Most Recent: 77.836 kg I&O - Last 24 Hours: Intake & Output 07/07/18 07/08/18 07/08/18 23:59 07:59 15:59 Intake Total 1099 Output Total 600 Balance 499 Lab Results Last 24 Hours: Laboratory Results - last 24 hr 07/07/18 07/07/18 07/07/18 Range/Units 17:00 17:00 17:00 WBC 14.03 H (3.98-10.04) K/mm3 RBC 5.88 H (3.98-5.22) M/mm3 Hgb 17.9 H (11.2-15.7) gm/L Hct 50.9 H (34.1-44.9) % MCV 86.6 (79.4-94.8) fl MCH 30.4 (25.6-32.2) pg MCHC 35.2 (32.2-35.5) g/dl RDW Std Deviation 46.8 H (36.4-46.3) fL Plt Count 185 (182-369) K/mm3 MPV 11.7 (9.4-12.3) fl Neut % (Auto) (34.0-71.1) % Lymph % (Auto) (19.3-51.7) % Sch[place] % (Auto) (4.7-12.5) % Eos % (Auto) (0.7-5.8) Baso % (Auto) (0.1-1.2) % Neut # (Auto) (1.56-6.13) K/mm3 Lymph # (Auto) (1.18-3.74) K/mm3 [place] # (Auto) (0.24-0.36) K/mm3 Eos # (Auto) (0.04-0.36) K/mm3 Baso # (Auto) (0.01-0.08) K/mm3 Neutrophils % (Manual) 84 H (40-60) % Band Neutrophils % 0 (0-10) % Lymphocytes % (Manual) 9 L (20-40) % Atypical Lymphs % 0 % Monocytes % (Manual) 7 (2-10) % Eosinophils % (Manual) 0 L (0.7-5.8) % Basophils % (Manual) 0 L (0.1-1.2) Manual Slide Review Platelet Estimate Adequate RBC Morph Comment Normal PT 12.5 H (9.5-12.1) SECONDS INR 1.15 APTT 27 (24-31) SECONDS Sodium 128 L (136-145) mEq/L Potassium 2.8 L (3.5-5.1) mEq/L Chloride 87 L (98-107) mEq/L Carbon Dioxide 26 (21-32) mEq/L Anion Gap 17.8 H (5-15) BUN 133 H (7-18) mg/dL Creatinine 2.3 H (0.55-1.02) mg/dL Est Cr Clr Drug Dosing 17.49 mL/min Estimated GFR (MDRD) 21 (>60) mL/min BUN/Creatinine Ratio 57.8 H (14-18) Glucose 169 H (83-115) mg/dL Calcium 12.4 H (8.5-10.1) mg/dL Magnesium 3.7 H (1.8-2.4) mg/dl Total Bilirubin 0.8 (0.2-1.0) mg/dL AST 34 (15-37) U/L ALT 35 (14-59) U/L Alkaline Phosphatase 79 (46-116) U/L CK-MB (CK-2) (0-3.6) ng/ml Troponin I 0.104 H* (0.00-0.056) ng/mL C-Reactive Protein 2.3 H* (<1.0) mg/dL NT-Pro-B Natriuret Pep (0-125) pg/mL Total Protein 8.8 H (6.4-8.2) g/dl Albumin 4.2 (3.4-5.0) g/dl Globulin 4.6 gm/dL Albumin/Globulin Ratio 0.9 L (1-2) Urine Color (Yellow) Urine Appearance (Clear) Urine pH (5.0-8.0) Ur Specific [place] (1.005-1.030) Urine Protein (Negative) Urine Glucose (UA) (Negative) Urine Ketones (Negative) Urine Occult Blood (Negative) Urine Nitrite (Negative) Urine Bilirubin (Negative) Urine Urobilinogen (0.2-1.0) Ur Leukocyte Esterase (Negative) Urine RBC (0-5) /hpf Urine WBC (0-5) /hpf Ur Epithelial Cells (0-5) /hpf Urine Bacteria (FEW) /hpf Urine Mucus (FEW) /hpf H. pylori IgG Antibody (NEGATIVE) Blood Type Gel Antibody Screen 07/07/18 07/07/18 07/07/18 Range/Units 17:00 17:00 17:00 WBC (3.98-10.04) K/mm3 RBC (3.98-5.22) M/mm3 Hgb (11.2-15.7) gm/L Hct (34.1-44.9) % MCV (79.4-94.8) fl MCH (25.6-32.2) pg MCHC (32.2-35.5) g/dl RDW Std Deviation (36.4-46.3) fL Plt Count (182-369) K/mm3 MPV (9.4-12.3) fl Neut % (Auto) (34.0-71.1) % Lymph % (Auto) (19.3-51.7) % Schley % (Auto) (4.7-12.5) % Eos % (Auto) (0.7-5.8) Baso % (Auto) (0.1-1.2) % Neut # (Auto) (1.56-6.13) K/mm3 Lymph # (Auto) (1.18-3.74) K/mm3 Schley # (Auto) (0.24-0.36) K/mm3 Eos # (Auto) (0.04-0.36) K/mm3 Baso # (Auto) (0.01-0.08) K/mm3 Neutrophils % (Manual) (40-60) % Band Neutrophils % (0-10) % Lymphocytes % (Manual) (20-40) % Atypical Lymphs % % Monocytes % (Manual) (2-10) % Eosinophils % (Manual) (0.7-5.8) % Basophils % (Manual) (0.1-1.2) Manual Slide Review Platelet Estimate RBC Morph Comment PT (9.5-12.1) SECONDS INR APTT (24-31) SECONDS Sodium (136-145) mEq/L Potassium (3.5-5.1) mEq/L Chloride (98-107) mEq/L Carbon Dioxide (21-32) mEq/L Anion Gap (5-15) BUN (7-18) mg/dL Creatinine (0.55-1.02) mg/dL Est Cr Clr Drug Dosing mL/min Estimated GFR (MDRD) (>60) mL/min BUN/Creatinine Ratio (14-18) Glucose (83-115) mg/dL Calcium (8.5-10.1) mg/dL Magnesium (1.8-2.4) mg/dl Total Bilirubin (0.2-1.0) mg/dL AST (15-37) U/L ALT (14-59) U/L Alkaline Phosphatase (46-116) U/L CK-MB (CK-2) (0-3.6) ng/ml Troponin I (0.00-0.056) ng/mL C-Reactive Protein (<1.0) mg/dL NT-Pro-B Natriuret Pep 5776 H (0-125) pg/mL Total Protein (6.4-8.2) g/dl Albumin (3.4-5.0) g/dl Globulin gm/dL Albumin/Globulin Ratio (1-2) Urine Color (Yellow) Urine Appearance (Clear) Urine pH (5.0-8.0) Ur Specific [place] (1.005-1.030) Urine Protein (Negative) Urine Glucose (UA) (Negative) Urine Ketones (Negative) Urine Occult Blood (Negative) Urine Nitrite (Negative) Urine Bilirubin (Negative) Urine Urobilinogen (0.2-1.0) Ur Leukocyte Esterase (Negative) Urine RBC (0-5) /hpf Urine WBC (0-5) /hpf Ur Epithelial Cells (0-5) /hpf Urine Bacteria (FEW) /hpf Urine Mucus (FEW) /hpf H. pylori IgG Antibody Negative (NEGATIVE) Blood Type A POSITIVE Gel Antibody Screen Negative 07/08/18 07/08/18 07/08/18 Range/Units 04:30 05:35 05:35 WBC 8.53 (3.98-10.04) K/mm3 RBC 5.35 H (3.98-5.22) M/mm3 Hgb 16.5 H (11.2-15.7) gm/L Hct 47.8 H (34.1-44.9) % MCV 89.3 (79.4-94.8) fl MCH 30.8 (25.6-32.2) pg MCHC 34.5 (32.2-35.5) g/dl RDW Std Deviation 49.2 H (36.4-46.3) fL Plt Count 141 L (182-369) K/mm3 MPV 11.6 (9.4-12.3) fl Neut % (Auto) 72.7 H (34.0-71.1) % Lymph % (Auto) 9.6 L (19.3-51.7) % Schley % (Auto) 17.2 H (4.7-12.5) % Eos % (Auto) 0.2 L (0.7-5.8) Baso % (Auto) 0.1 (0.1-1.2) % Neut # (Auto) 6.19 H (1.56-6.13) K/mm3 Lymph # (Auto) 0.82 L (1.18-3.74) K/mm3 [place] # (Auto) 1.47 H (0.24-0.36) K/mm3 Eos # (Auto) 0.02 L (0.04-0.36) K/mm3 Baso # (Auto) 0.01 (0.01-0.08) K/mm3 Neutrophils % (Manual) (40-60) % Band Neutrophils % (0-10) % Lymphocytes % (Manual) (20-40) % Atypical Lymphs % % Monocytes % (Manual) (2-10) % Eosinophils % (Manual) (0.7-5.8) % Basophils % (Manual) (0.1-1.2) Manual Slide Review Normal smear Platelet Estimate RBC Morph Comment PT (9.5-12.1) SECONDS INR APTT (24-31) SECONDS Sodium 132 L (136-145) mEq/L Potassium 3.4 L (3.5-5.1) mEq/L Chloride 92 L (98-107) mEq/L Carbon Dioxide 27 (21-32) mEq/L Anion Gap 16.4 H (5-15) BUN 128 H (7-18) mg/dL Creatinine 2.1 H (0.55-1.02) mg/dL Est Cr Clr Drug Dosing 18.27 mL/min Estimated GFR (MDRD) 23 (>60) mL/min BUN/Creatinine Ratio 61.0 H (14-18) Glucose 109 (83-115) mg/dL Calcium 10.3 H (8.5-10.1) mg/dL Magnesium 3.5 H (1.8-2.4) mg/dl Total Bilirubin (0.2-1.0) mg/dL AST (15-37) U/L ALT (14-59) U/L Alkaline Phosphatase (46-116) U/L CK-MB (CK-2) (0-3.6) ng/ml Troponin I (0.00-0.056) ng/mL C-Reactive Protein 2.1 H* (<1.0) mg/dL NT-Pro-B Natriuret Pep (0-125) pg/mL Total Protein (6.4-8.2) g/dl Albumin (3.4-5.0) g/dl Globulin gm/dL Albumin/Globulin Ratio (1-2) Urine Color Yellow (Yellow) Urine Appearance Clear (Clear) Urine pH 6.5 (5.0-8.0) Ur Specific [place] 1.015 (1.005-1.030) Urine Protein 2+ H (Negative) Urine Glucose (UA) Negative (Negative) Urine Ketones Negative (Negative) Urine Occult Blood 3+ H (Negative) Urine Nitrite Negative (Negative) Urine Bilirubin Negative (Negative) Urine Urobilinogen 0.2 (0.2-1.0) Ur Leukocyte Esterase 2+ H (Negative) Urine RBC 0-5 (0-5) /hpf Urine WBC 10-20 H (0-5) /hpf Ur Epithelial Cells 0-5 (0-5) /hpf Urine Bacteria Not seen (FEW) /hpf Urine Mucus Not seen (FEW) /hpf H. pylori IgG Antibody (NEGATIVE) Blood Type Gel Antibody Screen 07/08/18 07/08/18 Range/Units 05:35 05:35 WBC (3.98-10.04) K/mm3 RBC (3.98-5.22) M/mm3 Hgb (11.2-15.7) gm/L Hct (34.1-44.9) % MCV (79.4-94.8) fl MCH (25.6-32.2) pg MCHC (32.2-35.5) g/dl RDW Std Deviation (36.4-46.3) fL Plt Count (182-369) K/mm3 MPV (9.4-12.3) fl Neut % (Auto) (34.0-71.1) % Lymph % (Auto) (19.3-51.7) % Schley % (Auto) (4.7-12.5) % Eos % (Auto) (0.7-5.8) Baso % (Auto) (0.1-1.2) % Neut # (Auto) (1.56-6.13) K/mm3 Lymph # (Auto) (1.18-3.74) K/mm3 Schley # (Auto) (0.24-0.36) K/mm3 Eos # (Auto) (0.04-0.36) K/mm3 Baso # (Auto) (0.01-0.08) K/mm3 Neutrophils % (Manual) (40-60) % Band Neutrophils % (0-10) % Lymphocytes % (Manual) (20-40) % Atypical Lymphs % % Monocytes % (Manual) (2-10) % Eosinophils % (Manual) (0.7-5.8) % Basophils % (Manual) (0.1-1.2) Manual Slide Review Platelet Estimate RBC Morph Comment PT (9.5-12.1) SECONDS INR APTT (24-31) SECONDS Sodium (136-145) mEq/L Potassium (3.5-5.1) mEq/L Chloride (98-107) mEq/L Carbon Dioxide (21-32) mEq/L Anion Gap (5-15) BUN (7-18) mg/dL Creatinine (0.55-1.02) mg/dL Est Cr Clr Drug Dosing mL/min Estimated GFR (MDRD) (>60) mL/min BUN/Creatinine Ratio (14-18) Glucose (83-115) mg/dL Calcium (8.5-10.1) mg/dL Magnesium (1.8-2.4) mg/dl Total Bilirubin (0.2-1.0) mg/dL AST (15-37) U/L ALT (14-59) U/L Alkaline Phosphatase (46-116) U/L CK-MB (CK-2) 7.5 H (0-3.6) ng/ml Troponin I 0.131 H* (0.00-0.056) ng/mL C-Reactive Protein (<1.0) mg/dL NT-Pro-B Natriuret Pep (0-125) pg/mL Total Protein (6.4-8.2) g/dl Albumin (3.4-5.0) g/dl Globulin gm/dL Albumin/Globulin Ratio (1-2) Urine Color (Yellow) Urine Appearance (Clear) Urine pH (5.0-8.0) Ur Specific [place] (1.005-1.030) Urine Protein (Negative) Urine Glucose (UA) (Negative) Urine Ketones (Negative) Urine Occult Blood (Negative) Urine Nitrite (Negative) Urine Bilirubin (Negative) Urine Urobilinogen (0.2-1.0) Ur Leukocyte Esterase (Negative) Urine RBC (0-5) /hpf Urine WBC (0-5) /hpf Ur Epithelial Cells (0-5) /hpf Urine Bacteria (FEW) /hpf Urine Mucus (FEW) /hpf H. pylori IgG Antibody (NEGATIVE) Blood Type Gel Antibody Screen Med Orders - Current: Current Medications Acetaminophen (Tylenol) 650 mg PO Q4H PRN PRN Reason: Pain (Mild 1-3)/fever Hydrocodone Bitart/Acetaminophen ([place] 325-5 Mg) 1 tab PO Q4H PRN PRN Reason: Pain (moderate 4-6) Albuterol/Ipratropium (Duoneb 3.0-0.5 Mg/3 Ml) 3 ml NEB Q4H PRN PRN Reason: Shortness Of Breath/wheezing Artificial Tears (Refresh Liquigel 1%) 0 ml EYEBOTH DAILY PRN PRN Reason: Dry Eyes Atenolol (Tenormin) 50 mg PO DAILY [facility] Last Admin: 07/08/18 09:25 Dose: 50 mg Calcium Carbonate (Calcium Carbonate/Vitamin D 600 Mg-200 Unit) 1 tab PO BIDMEALS [facility] Last Admin: 07/08/18 06:47 Dose: 1 tab Cyanocobalamin (Vitamin B12) 1,000 mcg PO DAILY [facility] Last Admin: 07/08/18 09:13 Dose: 1,000 mcg Diclofenac Sodium (Voltaren 1% Gel) 0 gm TOP BID [facility] Last Admin: 07/08/18 09:17 Dose: Not Given Diltiazem HCl (Cardizem Cd) 120 mg PO DAILY [facility] Last Admin: 07/08/18 09:25 Dose: 120 mg Flunisolide (Nasalide Nasal [place]) 0 ml CATHY BID [facility] Last Admin: 07/08/18 09:16 Dose: 2 sprays Folic Acid (Folic Acid) 0.5 mg PO DAILY [facility] Last Admin: 07/08/18 09:13 Dose: 0.5 mg Guaifenesin (Mucinex) 1,200 mg PO BID [facility] Last Admin: 07/08/18 09:15 Dose: 1,200 mg Hydralazine HCl (Apresoline) 10 mg IVPUSH Q4H PRN PRN Reason: Hypertension Hydromorphone HCl (Dilaudid) 0.25 mg IVPUSH Q2H PRN PRN Reason: Pain (severe 7-10) Promethazine HCl 6.25 mg/ (Sodium Chloride) 50.25 mls @ 100 mls/hr IV Q6H PRN PRN Reason: Nausea/Vomiting Sodium Chloride (Normal Saline) 1,000 mls @ 125 mls/hr IV ASDIRECTED [facility] Last Admin: 07/08/18 09:42 Dose: 125 mls/hr Lactulose (Cephulac) 20 gm PO Q6H [facility] Last Admin: 07/08/18 06:47 Dose: 20 gm Levothyroxine Sodium (Synthroid) 50 mcg PO SuMoWeThFrSa@0600 [facility] Last Admin: 07/08/18 06:48 Dose: 50 mcg Levothyroxine Sodium (Synthroid) 100 mcg PO Tu@0600 [facility] Loratadine (Claritin) 10 mg PO Q48H [facility] Lorazepam (Ativan) 0.5 mg IV Q6H PRN PRN Reason: Anxiety Magnesium Sulfate (Pharmacy To Dose - Magnesium Replacement) 0 dose .XX ASDIRECTED PRN PRN Reason: RX TO WATCH MAG LEVELS Melatonin (Melatonin) 6 mg PO BEDTIME [facility] Metoclopramide HCl (Reglan) 5 mg IVPUSH TID@0700,1400,2100 [facility] Stop: 07/08/18 21:01 Last Admin: 07/08/18 06:48 Dose: 5 mg Metoprolol Tartrate (Lopressor) 5 mg IVPUSH Q4H PRN PRN Reason: Tachycardia Multivitamins (Thera) 1 each PO DAILY [facility] Last Admin: 07/08/18 09:13 Dose: 1 each Ondansetron HCl (Zofran) 4 mg IV Q6H PRN PRN Reason: Nausea/Vomiting Pantoprazole Sodium (Protonix) 40 mg PO ACBREAKFAST [facility] Last Admin: 07/08/18 06:48 Dose: 40 mg Polyethylene Glycol (Miralax) 17 gm PO Q72H [facility] Potassium Chloride (Pharmacy To Dose - Potassium Replacement) 0 dose .XX ASDIRECTED PRN PRN Reason: RX TO WATCH K LEVELS Rosuvastatin Calcium (Crestor) 20 mg PO DAILY [facility] Last Admin: 07/08/18 09:12 Dose: 20 mg Sertraline HCl (Zoloft) 75 mg PO DAILY [facility] Last Admin: 07/08/18 09:13 Dose: 75 mg Sodium Chloride (Saline Flush) 10 ml FLUSH ASDIRECTED PRN PRN Reason: Keep Vein Open Last Admin: 07/07/18 17:33 Dose: 10 ml Temazepam (Restoril) 15 mg PO BEDTIME PRN PRN Reason: Sleep Last Admin: 07/07/18 23:44 Dose: 15 mg Discontinued Medications Bisacodyl (Dulcolax) 10 mg RECTAL BID [facility] Stop: 07/08/18 09:01 Last Admin: 07/08/18 09:24 Dose: 10 mg Potassium Chloride 10 meq/ (Premix) 100 mls @ 100 mls/hr IV ONETIME ONE Stop: 07/07/18 19:43 Last Admin: 07/07/18 19:09 Dose: 100 mls/hr Sodium Chloride (Normal Saline) 1,000 mls @ 50 mls/hr IV ASDIRECTED [facility] Last Admin: 07/07/18 19:09 Dose: 50 mls/hr Levothyroxine Sodium (Levothyroxine) 25 mcg PO SuMoWeThFrSa@0600 [facility] Levothyroxine Sodium (Synthroid) 50 mcg PO Tu@0600 [facility] Lidocaine HCl (Xylocaine 2% Jelly) 10 ml MUCMEM ONETIME ONE Stop: 07/07/18 17:59 Last Admin: 07/07/18 18:05 Dose: 10 ml Loratadine (Claritin) 10 mg PO DAILY [facility] Last Admin: 07/08/18 09:16 Dose: 10 mg Non-Formulary Medication (Acetaminophen) 650 mg PO Q8H PRN PRN Reason: Pain Polyethylene Glycol (Miralax) 17 gm PO ONETIME ONE Stop: 07/08/18 00:16 Last Admin: 07/08/18 00:15 Dose: 17 gm Potassium Chloride (Klor-Con 10) 20 meq PO BID SHINE Potassium Chloride (Klor-Con M20) 60 meq PO ONETIME ONE Stop: 07/08/18 00:16 Last Admin: 07/08/18 00:12 Dose: 60 meq Potassium Chloride (Klor-Con M20) 40 meq PO ONETIME ONE Stop: 07/08/18 09:31 Last Admin: 07/08/18 09:40 Dose: 40 meq Consult PN Assessment/Plan Procedures: Procedures ASSAY OF NATRIURETIC PEPTIDE (12/03/16) ASSAY OF TROPONIN QUANT (12/03/16) BREAST TOMOSYNTHESIS BI (12/20/17) CARDIOVASCULAR STRESS TEST (08/12/17) CHEST X-RAY 1 VIEW FRONTAL (12/03/16) COMP SCREEN MAMMOGRAM ADD-ON (05/31/15) COMPLETE CBC W/AUTO DIFF WBC (12/03/16) COMPREHEN METABOLIC PANEL (12/03/16) COMPUTER DX MAMMOGRAM ADD-ON (12/06/14) CONTRAST X-RAY ESOPHAGUS (07/10/15) DXA BONE DENSITY AXIAL (12/09/16) ELECTROCARDIOGRAM TRACING (12/03/16) EMERGENCY DEPT VISIT (12/03/16) EMERGENCY DEPT VISIT (07/30/13) HT MUSCLE IMAGE SPECT MULT (08/12/17) ROUTINE VENIPUNCTURE (12/03/16) SCR MAMMO BI INCL CAD (12/20/17) THER/PROPH/DIAG INJ IV PUSH (12/03/16) TISSUE EXAM BY PATHOLOGIST (06/18/14) ULTRASOUND BREAST COMPLETE (12/06/14) X-RAY EXAM OF FOREARM (07/30/13) X-RAY EXAM OF KNEE 3 (07/30/13) X-RAY EXAM OF WRIST (07/30/13) Problem List Initiated/Reviewed/Updated: Yes Plan: consult dictated WIN
[2018-07-08] MEDS: Melatonin 3 MG Tab PO SCH (22:22)
[2018-07-08] MEDS: Temazepam 15 MG Cap PO PRN (22:25)
[2018-07-09] MEDS: Sodium Chloride 0.9% 1,000 ML IV SCH ×3 (03:10→19:05)
[2018-07-09] MEDS: Levothyroxine 50 MCG Tab PO SCH (05:36)
[2018-07-09] MEDS: Pantoprazole 40 MG Tab.CR PO SCH (05:37)
[2018-07-09] MEDS: Calcium Carbonate/Vitamin D3 600 MG-200 Units Tab PO SCH ×3 (05:37→17:51)
[2018-07-09] MEDS: Lactulose Soln 10 GM/15 ML 30 ML UD Cup PO SCH ×4 (05:37→18:56)
[2018-07-09] MEDS: Sertraline 50 MG Tab PO SCH (09:19)
[2018-07-09] MEDS: guaiFENesin 600 MG Tab.ER PO SCH ×2 (09:19→21:18)
[2018-07-09] MEDS: Rosuvastatin 10 MG Tab PO SCH (09:19)
[2018-07-09] MEDS: Multivitamins,Therapeutic Tab PO SCH (09:19)
[2018-07-09] MEDS: Cyanocobalamin (Vitamin B12) 1,000 MCG Tab PO SCH (09:19)
[2018-07-09] MEDS: Folic Acid 1 MG Tab PO SCH (09:20)
[2018-07-09] MEDS: Diltiazem 120 MG Cap.CD PO SCH (09:49)
[2018-07-09] MEDS: Atenolol 50 MG Tab PO SCH (09:50)
[2018-07-09] MEDS: Diclofenac Sodium 1% Gel 100 GM Tube TOP SCH ×2 (09:51→21:19)
--- NOTE | 2018-07-09 13:21 | PCM.PN ---
- General Info Date of Service: 07/09/18 Subjective Update: No complaints Functional Status: Reports: Pain Controlled, Tolerating Diet, Ambulating, Urinating - Review of Systems General: Reports: No Symptoms HEENT: Reports: No Symptoms Pulmonary: Reports: No Symptoms Cardiovascular: Reports: No Symptoms Gastrointestinal: Reports: No Symptoms Genitourinary: Reports: No Symptoms Musculoskeletal: Reports: No Symptoms Skin: Reports: No Symptoms Neurological: Reports: No Symptoms Psychiatric: Reports: No Symptoms - Patient Data Vitals - Most Recent: Last Vital Signs Temp 36.2 C 07/09/18 12:08 Pulse 60 07/09/18 12:08 Resp 16 07/09/18 12:08 BP 88/63 L 07/09/18 12:08 Pulse Ox 97 07/09/18 12:08 Weight - Most Recent: 77.247 kg I&O - Last 24 Hours: Intake & Output 07/08/18 07/09/18 07/09/18 22:59 06:59 14:59 Intake Total 3008 1875 Output Total 850 900 Balance 2158 975 Lab Results Last 24 Hours: Laboratory Results - last 24 hr 07/09/18 07/09/18 Range/Units 05:42 05:42 WBC 6.24 (3.98-10.04) K/mm3 RBC 4.61 (3.98-5.22) M/mm3 Hgb 14.3 (11.2-15.7) gm/L Hct 43.4 (34.1-44.9) % MCV 94.1 (79.4-94.8) fl MCH 31.0 (25.6-32.2) pg MCHC 32.9 (32.2-35.5) g/dl RDW Std Deviation 51.6 H (36.4-46.3) fL Plt Count 112 L (182-369) K/mm3 MPV 11.8 (9.4-12.3) fl Neut % (Auto) 69.4 (34.0-71.1) % Lymph % (Auto) 14.7 L (19.3-51.7) % [place] % (Auto) 14.1 H (4.7-12.5) % Eos % (Auto) 1.3 (0.7-5.8) Baso % (Auto) 0.2 (0.1-1.2) % Neut # (Auto) 4.33 (1.56-6.13) K/mm3 Lymph # (Auto) 0.92 L (1.18-3.74) K/mm3 [place] # (Auto) 0.88 H (0.24-0.36) K/mm3 Eos # (Auto) 0.08 (0.04-0.36) K/mm3 Baso # (Auto) 0.01 (0.01-0.08) K/mm3 Sodium 139 (136-145) mEq/L Potassium 3.2 L (3.5-5.1) mEq/L Chloride 103 (98-107) mEq/L Carbon Dioxide 26 (21-32) mEq/L Anion Gap 13.2 (5-15) BUN 83 H (7-18) mg/dL Creatinine 1.5 H (0.55-1.02) mg/dL Est Cr Clr Drug Dosing 25.61 mL/min Estimated GFR (MDRD) 34 (>60) mL/min BUN/Creatinine Ratio 55.3 H (14-18) Glucose 78 L (83-115) mg/dL Calcium 8.9 (8.5-10.1) mg/dL Magnesium 2.7 H (1.8-2.4) mg/dl C-Reactive Protein 1.5 H* (<1.0) mg/dL Med Orders - Current: Current Medications Acetaminophen (Tylenol) 650 mg PO Q4H PRN PRN Reason: Pain (Mild 1-3)/fever Hydrocodone Bitart/Acetaminophen ([place] 325-5 Mg) 1 tab PO Q4H PRN PRN Reason: Pain (moderate 4-6) Albuterol/Ipratropium (Duoneb 3.0-0.5 Mg/3 Ml) 3 ml NEB Q4H PRN PRN Reason: Shortness Of Breath/wheezing Artificial Tears (Refresh Liquigel 1%) 0 ml EYEBOTH DAILY PRN PRN Reason: Dry Eyes Atenolol (Tenormin) 50 mg PO DAILY [facility] [place] Last Admin: 07/09/18 09:50 Dose: Not Given Calcium Carbonate (Calcium Carbonate/Vitamin D 600 Mg-200 Unit) 1 tab PO BIDMEALS [facility] Last Admin: 07/09/18 06:33 Dose: Not Given Cyanocobalamin (Vitamin B12) 1,000 mcg PO DAILY [facility] Last Admin: 07/09/18 09:19 Dose: 1,000 mcg Diclofenac Sodium (Voltaren 1% Gel) 0 gm TOP BID [facility] [place] Last Admin: 07/09/18 09:51 Dose: Not Given Diltiazem HCl (Cardizem Cd) 120 mg PO DAILY [facility] Last Admin: 07/09/18 09:49 Dose: Not Given Flunisolide (Nasalide Nasal [place]) 0 ml CATHY BID [facility] Last Admin: 07/09/18 09:20 Dose: 2 sprays Folic Acid (Folic Acid) 0.5 mg PO DAILY [facility] Last Admin: 07/09/18 09:20 Dose: 0.5 mg Guaifenesin (Mucinex) 1,200 mg PO BID [facility] [place] Last Admin: 07/09/18 09:19 Dose: 1,200 mg Hydralazine HCl (Apresoline) 10 mg IVPUSH Q4H PRN PRN Reason: Hypertension Hydromorphone HCl (Dilaudid) 0.25 mg IVPUSH Q2H PRN PRN Reason: Pain (severe 7-10) Promethazine HCl 6.25 mg/ (Sodium Chloride) 50.25 mls @ 100 mls/hr IV Q6H PRN PRN Reason: Nausea/Vomiting Sodium Chloride (Normal Saline) 1,000 mls @ 125 mls/hr IV ASDIRECTED [facility] Last Admin: 07/09/18 11:23 Dose: 125 mls/hr Lactulose (Cephulac) 20 gm PO Q6H [facility] [place] Last Admin: 07/09/18 06:33 Dose: Not Given Levothyroxine Sodium (Synthroid) 50 mcg PO SuMoWeThFrSa@0600 [facility] [place] Last Admin: 07/09/18 05:36 Dose: 50 mcg Levothyroxine Sodium (Synthroid) 100 mcg PO Tu@0600 [facility] Loratadine (Claritin) 10 mg PO Q48H [facility] Lorazepam (Ativan) 0.5 mg IV Q6H PRN PRN Reason: Anxiety Melatonin (Melatonin) 6 mg PO BEDTIME [facility] Last Admin: 07/08/18 22:22 Dose: 6 mg Metoprolol Tartrate (Lopressor) 5 mg IVPUSH Q4H PRN PRN Reason: Tachycardia Multivitamins (Thera) 1 each PO DAILY [facility] Last Admin: 07/09/18 09:19 Dose: 1 each Ondansetron HCl (Zofran) 4 mg IV Q6H PRN PRN Reason: Nausea/Vomiting Pantoprazole Sodium (Protonix) 40 mg PO ACBREAKFAST [facility] Last Admin: 07/09/18 05:37 Dose: 40 mg Polyethylene Glycol (Miralax) 17 gm PO Q72H [facility] Polyethylene Glycol/Electrolytes (Golytely) 4,000 ml PO ONETIME ONE Stop: 07/10/18 17:01 Rosuvastatin Calcium (Crestor) 20 mg PO DAILY [facility] [place] Last Admin: 07/09/18 09:19 Dose: 20 mg Sertraline HCl (Zoloft) 75 mg PO DAILY [facility] [place] Last Admin: 07/09/18 09:19 Dose: 75 mg Sodium Chloride (Saline Flush) 10 ml FLUSH ASDIRECTED PRN PRN Reason: Keep Vein Open Last Admin: 07/07/18 17:33 Dose: 10 ml Temazepam (Restoril) 15 mg PO BEDTIME PRN PRN Reason: Sleep Last Admin: 07/08/18 22:25 Dose: 15 mg Discontinued Medications Bisacodyl (Dulcolax) 10 mg RECTAL BID [facility] [place] Stop: 07/08/18 09:01 Last Admin: 07/08/18 22:21 Dose: 10 mg Potassium Chloride 10 meq/ (Premix) 100 mls @ 100 mls/hr IV ONETIME ONE Stop: 07/07/18 19:43 Last Admin: 07/07/18 19:09 Dose: 100 mls/hr Sodium Chloride (Normal Saline) 1,000 mls @ 50 mls/hr IV ASDIRECTED [facility] [place] Last Admin: 07/07/18 19:09 Dose: 50 mls/hr Levothyroxine Sodium (Levothyroxine) 25 mcg PO SuMoWeThFrSa@0600 [facility] Levothyroxine Sodium (Synthroid) 50 mcg PO Tu@0600 [facility] Lidocaine HCl (Xylocaine 2% Jelly) 10 ml MUCMEM ONETIME ONE Stop: 07/07/18 17:59 Last Admin: 07/07/18 18:05 Dose: 10 ml Loratadine (Claritin) 10 mg PO DAILY [facility] [place] Last Admin: 07/08/18 09:16 Dose: 10 mg Magnesium Sulfate (Pharmacy To Dose - Magnesium Replacement) 0 dose .XX ASDIRECTED PRN PRN Reason: RX TO WATCH MAG LEVELS Metoclopramide HCl (Reglan) 5 mg IVPUSH TID@0700,1400,2100 [facility] [place] Stop: 07/08/18 21:01 Last Admin: 07/08/18 22:24 Dose: 5 mg Non-Formulary Medication (Acetaminophen) 650 mg PO Q8H PRN PRN Reason: Pain Polyethylene Glycol (Miralax) 17 gm PO ONETIME ONE Stop: 07/08/18 00:16 Last Admin: 07/08/18 00:15 Dose: 17 gm Potassium Chloride (Klor-Con 10) 20 meq PO BID [facility] [place] Potassium Chloride (Pharmacy To Dose - Potassium Replacement) 0 dose .XX ASDIRECTED PRN PRN Reason: RX TO WATCH K LEVELS Potassium Chloride (Klor-Con M20) 60 meq PO ONETIME ONE Stop: 07/08/18 00:16 Last Admin: 07/08/18 00:12 Dose: 60 meq Potassium Chloride (Klor-Con M20) 40 meq PO ONETIME ONE Stop: 07/08/18 09:31 Last Admin: 07/08/18 09:40 Dose: 40 meq - Exam Quality Assessment: DVT Prophylaxis General: Alert, Oriented, Cooperative, No Acute Distress HEENT: Pupils Equal, Pupils Reactive, EOMI Neck: Trachea Midline, No JVD Lungs: Normal Respiratory Effort Cardiovascular: Regular Rate GI/Abdominal Exam: Normal Bowel Sounds, Soft, Non-Tender, No Organomegaly, No Distention (Female) Exam: Deferred Back Exam: Normal Inspection Extremities: Normal Inspection, Non-Tender, Normal Capillary Refill Skin: Warm Neurological: No New Focal Deficit Psy/Mental Status: Alert, Normal Affect, Normal Mood - Problem List Review Problem List Initiated/Reviewed/Updated: Yes - Plan Plan:: I/P: Acute: GI Bleed -Reports bleeding per rectum for past 3-4 days along with constipation -Hx/ of hemorrhoids but unsure what type; on eliquis daily for A-fib -Has to wear pad at night due to oozing of blood from rectum -Abdominal X-ray in ED shows increased colonic stools -Sigmoidoscopy performed in ED: * Advanced to 15cm * Could see nothing but blood * Internal and external hemorrhoids noted with no active bleeding evident -Hgb 17.9-->16.5 -Hct 50.9-->47.8 -PT 12.5; INR 1.15; APTT 27 -NPO overnight - advance to clear liquids -Lactulose/bisacodyl suppository starting in AM until BM -Hold Eliquis -Reports last colonoscopy was a long time ago -Dr. Burleson, general surgery consult -Continue to hold Eliquis -Advance diet to clear liquids for now -NPO after midnight on Wednesday07/11/18 -Bowel prep Wednesday07/10/18 -Endoscopy Wednesday07/11/18 Hyponatremia, improving -Reports she has not been eating or drinking much with dificulty caring for herself -Sodium 128-->132 -IV fluids as ordered -Monitor Hypokalemia, improving -2/2 inadequate intake -Potassium 2.8-->3.4 -Supplement -Pharmacy to monitor and supplement Kidney failure -Acute on chronic -Last visit of 11/2016 showed creatinine of 1.0 and eGFR of 55 -Unsure of recent baseline -BUN 133-->128 -Creatinine 2.3-->2.1 -eGFR 21-->23 -Will likely need eliquis decreased from 5mg to 2.5 mg on discharge -IV fluids as ordered - caution with worsening heart failure Elevated troponin, trending down -Troponin 0.104-->0.131-->0.100 -CKMB 7.5-->7.9 -12-lead EKG shows 100% ventricular paced rhythm -Significant cardiac history including diastolic HF, HTN, HLD, CAD, A-fib on eliquis, Pacemaker -Likely troponin leak from chronic heart issues -Trend troponins/CKMB -BNP 5776 Chronic: Diastolic HF HLD HTN Pacemaker Renal disease Hypothyroidism Hx/o A-fib on eliquis Osteoporosis Renal stones Depression Raynauds syndrome Plan: Admit to medical floor on telemetry Home medications as ordered Other orders as indicated above PT/OT CM/SW - reports difficulty managing at home Spiritual care consult [place] Operator consult Routine AM labs DVT prophylaxis: SCDs - Hold home eliquis due to GI bleed Code status: DNR/DNI; PCP: Dr. Mcneal DC ~48 hours, GI work up/diagnostic procedure on 07/11.
[2018-07-09] MEDS: Melatonin 3 MG Tab PO SCH (21:18)
[2018-07-09] MEDS: Temazepam 15 MG Cap PO PRN (21:19)
[2018-07-10] MEDS: Sodium Chloride 0.9% 1,000 ML IV SCH (04:43)
[2018-07-10] MEDS: Calcium Carbonate/Vitamin D3 600 MG-200 Units Tab PO SCH ×3 (05:01→17:49)
[2018-07-10] MEDS: Pantoprazole 40 MG Tab.CR PO SCH (05:01)
[2018-07-10] MEDS: Levothyroxine 50 MCG Tab PO SCH (05:01)
[2018-07-10] MEDS: Sertraline 50 MG Tab PO SCH (10:14)
[2018-07-10] MEDS: Atenolol 50 MG Tab PO SCH (10:18)
[2018-07-10] MEDS: Folic Acid 1 MG Tab PO SCH (10:19)
[2018-07-10] MEDS: Cyanocobalamin (Vitamin B12) 1,000 MCG Tab PO SCH (10:19)
[2018-07-10] MEDS: Multivitamins,Therapeutic Tab PO SCH (10:21)
[2018-07-10] MEDS: guaiFENesin 600 MG Tab.ER PO SCH ×2 (10:21→20:55)
[2018-07-10] MEDS: Rosuvastatin 10 MG Tab PO SCH (10:21)
[2018-07-10] MEDS: Diltiazem 120 MG Cap.CD PO SCH (10:23)
[2018-07-10] MEDS: Diclofenac Sodium 1% Gel 100 GM Tube TOP SCH ×2 (10:24→21:00)
[2018-07-10] MEDS ORDERED: Loratadine 10 MG Tab PO SCH (11:00)
[2018-07-10] MEDS: Potassium Chloride 20 MEQ Tab.ER PO SCH ×2 (12:40→20:55)
--- NOTE | 2018-07-10 13:00 | PCM.PN ---
- General Info Date of Service: 07/10/18 Functional Status: Reports: Pain Controlled, Tolerating Diet, Ambulating, Urinating - Review of Systems General: Reports: No Symptoms HEENT: Reports: No Symptoms Pulmonary: Reports: No Symptoms Cardiovascular: Reports: No Symptoms Gastrointestinal: Reports: No Symptoms Genitourinary: Reports: No Symptoms Musculoskeletal: Reports: No Symptoms Skin: Reports: No Symptoms Neurological: Reports: No Symptoms Psychiatric: Reports: No Symptoms - Patient Data Vitals - Most Recent: Last Vital Signs Temp 36.1 C 07/10/18 08:49 Pulse 70 07/10/18 08:49 Resp 18 07/10/18 08:49 BP 91/59 L 07/10/18 10:23 Pulse Ox 100 07/10/18 08:49 Weight - Most Recent: 77.247 kg I&O - Last 24 Hours: Intake & Output 07/09/18 07/10/18 07/10/18 22:59 06:59 14:59 Intake Total 2784 2184 880 Output Total 900 Balance 2784 1284 880 Lab Results Last 24 Hours: Laboratory Results - last 24 hr 07/10/18 07/10/18 07/10/18 Range/Units 06:35 06:35 09:40 WBC 5.44 (3.98-10.04) K/mm3 RBC 4.33 (3.98-5.22) M/mm3 Hgb 13.4 (11.2-15.7) gm/L Hct 41.7 (34.1-44.9) % MCV 96.3 H (79.4-94.8) fl MCH 30.9 (25.6-32.2) pg MCHC 32.1 L (32.2-35.5) g/dl RDW Std Deviation 52.7 H (36.4-46.3) fL Plt Count 106 L (182-369) K/mm3 MPV 10.7 (9.4-12.3) fl Neut % (Auto) 70.4 (34.0-71.1) % Lymph % (Auto) 14.5 L (19.3-51.7) % [place] % (Auto) 11.6 (4.7-12.5) % Eos % (Auto) 2.9 (0.7-5.8) Baso % (Auto) 0.2 (0.1-1.2) % Neut # (Auto) 3.83 (1.56-6.13) K/mm3 Lymph # (Auto) 0.79 L (1.18-3.74) K/mm3 [place] # (Auto) 0.63 H (0.24-0.36) K/mm3 Eos # (Auto) 0.16 (0.04-0.36) K/mm3 Baso # (Auto) 0.01 (0.01-0.08) K/mm3 Sodium 143 (136-145) mEq/L Potassium 2.8 L 3.3 L (3.5-5.1) mEq/L Chloride 108 H (98-107) mEq/L Carbon Dioxide 24 (21-32) mEq/L Anion Gap 13.8 (5-15) BUN 34 H (7-18) mg/dL Creatinine 1.0 (0.55-1.02) mg/dL Est Cr Clr Drug Dosing 38.41 mL/min Estimated GFR (MDRD) 55 (>60) mL/min BUN/Creatinine Ratio 34.0 H (14-18) Glucose 80 L (83-115) mg/dL Calcium 8.3 L (8.5-10.1) mg/dL Magnesium 2.0 (1.8-2.4) mg/dl C-Reactive Protein 1.3 H* (<1.0) mg/dL Med Orders - Current: Current Medications Acetaminophen (Tylenol) 650 mg PO Q4H PRN PRN Reason: Pain (Mild 1-3)/fever Hydrocodone Bitart/Acetaminophen ([place] 325-5 Mg) 1 tab PO Q4H PRN PRN Reason: Pain (moderate 4-6) Albuterol/Ipratropium (Duoneb 3.0-0.5 Mg/3 Ml) 3 ml NEB Q4H PRN PRN Reason: Shortness Of Breath/wheezing Artificial Tears (Refresh Liquigel 1%) 0 ml EYEBOTH DAILY PRN PRN Reason: Dry Eyes Atenolol (Tenormin) 50 mg PO DAILY [facility] Last Admin: 07/10/18 10:18 Dose: Not Given Calcium Carbonate (Calcium Carbonate/Vitamin D 600 Mg-200 Unit) 1 tab PO BIDMEALS [facility] Last Admin: 07/10/18 06:04 Dose: Not Given Cyanocobalamin (Vitamin B12) 1,000 mcg PO DAILY [facility] Last Admin: 07/10/18 10:19 Dose: 1,000 mcg Diclofenac Sodium (Voltaren 1% Gel) 0 gm TOP BID [facility] Last Admin: 07/10/18 10:24 Dose: Not Given Diltiazem HCl (Cardizem Cd) 120 mg PO DAILY [facility] Last Admin: 07/10/18 10:23 Dose: Not Given Flunisolide (Nasalide Nasal [place]) 0 ml CATHY BID [facility] Last Admin: 07/10/18 10:23 Dose: 2 sprays Folic Acid (Folic Acid) 0.5 mg PO DAILY [facility] Last Admin: 07/10/18 10:19 Dose: 0.5 mg Guaifenesin (Mucinex) 1,200 mg PO BID [facility] Last Admin: 07/10/18 10:21 Dose: 1,200 mg Hydralazine HCl (Apresoline) 10 mg IVPUSH Q4H PRN PRN Reason: Hypertension Hydromorphone HCl (Dilaudid) 0.25 mg IVPUSH Q2H PRN PRN Reason: Pain (severe 7-10) Promethazine HCl 6.25 mg/ (Sodium Chloride) 50.25 mls @ 100 mls/hr IV Q6H PRN PRN Reason: Nausea/Vomiting Levothyroxine Sodium (Synthroid) 50 mcg PO SuMoWeThFrSa@0600 [facility] Last Admin: 07/10/18 05:01 Dose: 50 mcg Levothyroxine Sodium (Synthroid) 100 mcg PO Tu@0600 [facility] Loratadine (Claritin) 10 mg PO Q48H [facility] Last Admin: 07/10/18 12:01 Dose: 10 mg Lorazepam (Ativan) 0.5 mg IV Q6H PRN PRN Reason: Anxiety Melatonin (Melatonin) 6 mg PO BEDTIME [facility] Last Admin: 07/09/18 21:18 Dose: 6 mg Metoprolol Tartrate (Lopressor) 5 mg IVPUSH Q4H PRN PRN Reason: Tachycardia Multivitamins (Thera) 1 each PO DAILY [facility] Last Admin: 07/10/18 10:21 Dose: 1 each Ondansetron HCl (Zofran) 4 mg IV Q6H PRN PRN Reason: Nausea/Vomiting Pantoprazole Sodium (Protonix) 40 mg PO ACBREAKFAST [facility] Last Admin: 07/10/18 05:01 Dose: 40 mg Polyethylene Glycol (Miralax) 17 gm PO Q72H [facility] Polyethylene Glycol/Electrolytes (Golytely) 4,000 ml PO ONETIME ONE Stop: 07/10/18 17:01 Potassium Chloride (Klor-Con M20) 40 meq PO BID [facility] Stop: 07/11/18 21:01 Last Admin: 07/10/18 12:40 Dose: 40 meq Rosuvastatin Calcium (Crestor) 20 mg PO DAILY [facility] Last Admin: 07/10/18 10:21 Dose: 20 mg Sertraline HCl (Zoloft) 75 mg PO DAILY [facility] Last Admin: 07/10/18 10:14 Dose: 75 mg Sodium Chloride (Saline Flush) 10 ml FLUSH ASDIRECTED PRN PRN Reason: Keep Vein Open Last Admin: 07/07/18 17:33 Dose: 10 ml Temazepam (Restoril) 15 mg PO BEDTIME PRN PRN Reason: Sleep Last Admin: 07/09/18 21:19 Dose: 15 mg Discontinued Medications Bisacodyl (Dulcolax) 10 mg RECTAL BID [facility] Stop: 07/08/18 09:01 Last Admin: 07/08/18 22:21 Dose: 10 mg Potassium Chloride 10 meq/ (Premix) 100 mls @ 100 mls/hr IV ONETIME ONE Stop: 07/07/18 19:43 Last Admin: 07/07/18 19:09 Dose: 100 mls/hr Sodium Chloride (Normal Saline) 1,000 mls @ 50 mls/hr IV ASDIRECTED [facility] Last Admin: 07/07/18 19:09 Dose: 50 mls/hr Sodium Chloride (Normal Saline) 1,000 mls @ 125 mls/hr IV ASDIRECTED [facility] Last Admin: 07/10/18 04:43 Dose: 125 mls/hr Lactulose (Cephulac) 20 gm PO Q6H [facility] Last Admin: 07/09/18 18:56 Dose: 20 gm Levothyroxine Sodium (Levothyroxine) 25 mcg PO SuMoWeThFrSa@0600 [facility] Levothyroxine Sodium (Synthroid) 50 mcg PO Tu@0600 [facility] Lidocaine HCl (Xylocaine 2% Jelly) 10 ml MUCMEM ONETIME ONE Stop: 07/07/18 17:59 Last Admin: 07/07/18 18:05 Dose: 10 ml Loratadine (Claritin) 10 mg PO DAILY [facility] Last Admin: 07/08/18 09:16 Dose: 10 mg Magnesium Sulfate (Pharmacy To Dose - Magnesium Replacement) 0 dose .XX ASDIRECTED PRN PRN Reason: RX TO WATCH MAG LEVELS Metoclopramide HCl (Reglan) 5 mg IVPUSH TID@0700,1400,2100 [facility] Stop: 07/08/18 21:01 Last Admin: 07/08/18 22:24 Dose: 5 mg Non-Formulary Medication (Acetaminophen) 650 mg PO Q8H PRN PRN Reason: Pain Polyethylene Glycol (Miralax) 17 gm PO ONETIME ONE Stop: 07/08/18 00:16 Last Admin: 07/08/18 00:15 Dose: 17 gm Potassium Chloride (Klor-Con 10) 20 meq PO BID [facility] Potassium Chloride (Pharmacy To Dose - Potassium Replacement) 0 dose .XX ASDIRECTED PRN PRN Reason: RX TO WATCH K LEVELS Potassium Chloride (Klor-Con M20) 60 meq PO ONETIME ONE Stop: 07/08/18 00:16 Last Admin: 07/08/18 00:12 Dose: 60 meq Potassium Chloride (Klor-Con M20) 40 meq PO ONETIME ONE Stop: 07/08/18 09:31 Last Admin: 07/08/18 09:40 Dose: 40 meq - Exam Quality Assessment: DVT Prophylaxis General: Alert, Oriented, Cooperative, No Acute Distress HEENT: Pupils Reactive, EOMI Neck: Trachea Midline, No JVD Lungs: Normal Respiratory Effort Cardiovascular: Regular Rate GI/Abdominal Exam: Normal Bowel Sounds, Soft, Non-Tender, No Organomegaly, No Distention (Female) Exam: Deferred Back Exam: Normal Inspection Extremities: Normal Inspection, Non-Tender, Normal Capillary Refill Skin: Warm Neurological: No New Focal Deficit Psy/Mental Status: Alert, Normal Affect, Normal Mood - Problem List Review Problem List Initiated/Reviewed/Updated: Yes - My Orders Last 24 Hours: My Active Orders 07/10/18 12:29 Up ad Ana [RC] ASDIRECTED 07/10/18 12:30 Potassium Chloride [Klor-Con M20] 40 meq PO BID - Plan Plan:: I/P: Acute: GI Bleed -Reports bleeding per rectum for past 3-4 days along with constipation -Hx/ of hemorrhoids but unsure what type; on eliquis daily for A-fib -Has to wear pad at night due to oozing of blood from rectum -Abdominal X-ray in ED shows increased colonic stools -Sigmoidoscopy performed in ED: * Advanced to 15cm * Could see nothing but blood * Internal and external hemorrhoids noted with no active bleeding evident -Hgb 17.9-->16.5 -Hct 50.9-->47.8 -PT 12.5; INR 1.15; APTT 27 -NPO overnight - advance to clear liquids -Lactulose/bisacodyl suppository starting in AM until BM -Hold Eliquis -Reports last colonoscopy was a long time ago -Dr. Burleson, general surgery consult -Continue to hold Eliquis -Advance diet to clear liquids for now -NPO after midnight on Wednesday07/11/18 -Bowel prep Wednesday07/10/18 -Endoscopy Wednesday07/11/18 Hyponatremia, improving -Reports she has not been eating or drinking much with dificulty caring for herself -Sodium 128-->132 -IV fluids as ordered -Monitor Hypokalemia, improving -2/2 inadequate intake -Potassium 2.8-->3.4 -Supplement -Pharmacy to monitor and supplement Kidney failure -Acute on chronic -Last visit of 11/2016 showed creatinine of 1.0 and eGFR of 55 -Unsure of recent baseline -BUN 133-->128 -Creatinine 2.3-->2.1 -eGFR 21-->23 -Will likely need eliquis decreased from 5mg to 2.5 mg on discharge -IV fluids as ordered - caution with worsening heart failure Elevated troponin, trending down -Troponin 0.104-->0.131-->0.100 -CKMB 7.5-->7.9 -12-lead EKG shows 100% ventricular paced rhythm -Significant cardiac history including diastolic HF, HTN, HLD, CAD, A-fib on eliquis, Pacemaker -Likely troponin leak from chronic heart issues -Trend troponins/CKMB -BNP 5776 Chronic: Diastolic HF HLD HTN Pacemaker Renal disease Hypothyroidism Hx/o A-fib on eliquis Osteoporosis Renal stones Depression Raynauds syndrome Plan: Admit to medical floor on telemetry Home medications as ordered Other orders as indicated above PT/OT CM/SW - reports difficulty managing at home Spiritual care consult 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 Mcneal DC ~48 hours, GI work up/diagnostic procedure on Wed, 07/11. LOS>96 hours GI bleed evaluation.
[2018-07-10] MEDS ORDERED: Polyethylene Glycol/Electrolytes 4,000 ML Bottle PO ONE (17:00)
[2018-07-10] MEDS: Melatonin 3 MG Tab PO SCH (20:55)
[2018-07-10] MEDS ORDERED: Polyethylene Glycol 3350 Powder 17 GM Packet PO SCH (22:00)
[2018-07-10] MEDS: Temazepam 15 MG Cap PO PRN (23:29)
[2018-07-11] MEDS: Calcium Carbonate/Vitamin D3 600 MG-200 Units Tab PO SCH ×2 (06:36→17:27)
[2018-07-11] MEDS: Levothyroxine 50 MCG Tab PO SCH (06:36)
[2018-07-11] MEDS: Pantoprazole 40 MG Tab.CR PO SCH (06:36)
--- NOTE | 2018-07-11 07:43 | CONS ---
DATE OF CONSULTATION: 07/08/2018 CONSULTING PHYSICIAN: Rufus Burleson MD HISTORY OF PRESENT ILLNESS: This is a 72-year-old, who came into the emergency room because of persistent bleeding per rectum with each bowel movement and sometimes without. She has had a history of hemorrhoids, and she had noticed increased problems with her hemorrhoids with bleeding with the use of Eliquis and recently, especially last 2 months, when she is becoming increasingly constipated. She feels a little more short of breath. She is admitted to the hospital where she is started on some IV fluids and treated for her heart failure. Rectal bleeding at the moment is improving, but she is still complaining of a lot of constipation. She has not had a colonoscopy for about 10 years, and this is due. She has been taken off her Eliquis, which was given for atrial fibrillation. PAST MEDICAL HISTORY: Hypertension. She has a pacemaker in and has some chronic renal disease and hypothyroidism. MEDICATIONS: Per medication reconciliation form. REVIEW OF SYSTEMS: No chest pain, shortness of breath, cough, hoarseness, wheezing, fainting, weakness, numbness, convulsions, nausea, vomiting, indigestion, gas pain. Does have constipation, difficulty having a bowel movement. Reports some abdominal pain, lower, some crampy, and rectal bleeding. EKG shows a paced rhythm. FAMILY HISTORY: Noncontributory. SOCIAL HISTORY: . Occupation, retired. No smoking. No drinking. PHYSICAL EXAMINATION: GENERAL: Reveals alert, cooperative, elderly female. EYES: Sclerae white. Extraocular muscle motion normal. ORAL CAVITY: Healthy mucous membrane with mouth and tongue. NECK: Supple. No nodes. No thyromegaly. Trachea midline. LUNGS: Clear. No rales, rhonchi, fremitus, dullness. HEART: Tones regular rate. No S3, S4, jugular venous distention. Peripheral pulses intact, but difficult to feel below the femorals. ABDOMEN: Soft. No guarding, rebound, organomegaly. No inguinal hernias noted. EXTREMITIES: Upper and lower extremities, no angulation deformities. PSYCHIATRIC: Anxious. SKIN: Warm and dry. NEUROLOGIC: No sensorineural deficit or weakness. ASSESSMENT: Rectal bleeding and constipation. PLAN: For colonoscopy on Wednesday. We will discuss the risks, complications, and pretreatment. She understands and consents. MMODAL /[id number]
--- NOTE | 2018-07-11 08:08 | PCM.PN ---
<Luis E Mccall - Last Filed: 07/11/18 09:39> - General Info Date of Service: 07/11/18 Admission Dx/Problem (Free Text): Admission Diagnosis/Problem Admission Diagnosis/Problem Gastrointestinal hemorrhage Subjective Update: In to see Santos. She is lying in bed and will have a colonoscopy today. She reports her constipation has resolved after she had a large bowel movement. She reports she feels pretty good. She denies any shortness of breath but says she is pretty sure she would be short of breath if she were to get up and walk. She reports this is been an ongoing issue for several years. Her weight is listed as being up however she has no acute shortness of breath, no edema, and lung sounds are clear. She has been on a clear liquid diet and this can be advanced after colonoscopy at the recommendation of general surgery. Functional Status: Reports: Pain Controlled, Tolerating Diet, Ambulating, Urinating. Denies: New Symptoms - Review of Systems General: Reports: Weakness (improved ), Fatigue (improved ), Malaise (improved ) . Denies: Fever, Chills HEENT: Reports: No Symptoms. Denies: Headaches, Sore Throat Pulmonary: Reports: No Symptoms. Denies: Shortness of Breath, Cough, Sputum, Wheezing Cardiovascular: Reports: Dyspnea on Exertion (chronic ). Denies: Chest Pain, Palpitations, Orthopnea, Edema Gastrointestinal: Reports: Decreased Appetite. Denies: Abdominal Pain, Constipation (Resoved after BM ), Diarrhea, Hematochezia, Melena, Nausea, Vomiting Genitourinary: Reports: No Symptoms. Denies: Pain Musculoskeletal: Reports: No Symptoms. Denies: Leg Pain Skin: Reports: No Symptoms. Denies: Cyanosis Neurological: Reports: No Symptoms. Denies: Confusion Psychiatric: Reports: No Symptoms - Patient Data Vitals - Most Recent: Last Vital Signs Temp 97.5 F 07/11/18 02:05 Pulse 65 07/11/18 02:05 Resp 14 07/11/18 02:05 BP 118/65 07/11/18 06:29 Pulse Ox 99 07/11/18 02:05 Weight - Most Recent: 182 lb I&O - Last 24 Hours: Intake & Output 07/10/18 07/11/18 07/11/18 22:59 06:59 14:59 Intake Total 2470 4000 Output Total 1000 500 Balance 1470 3500 Lab Results Last 24 Hours: Laboratory Results - last 24 hr 07/10/18 07/11/18 07/11/18 Range/Units 09:40 06:35 06:35 WBC 5.23 (3.98-10.04) K/mm3 RBC 4.25 (3.98-5.22) M/mm3 Hgb 13.1 (11.2-15.7) gm/L Hct 40.5 (34.1-44.9) % MCV 95.3 H (79.4-94.8) fl MCH 30.8 (25.6-32.2) pg MCHC 32.3 (32.2-35.5) g/dl RDW Std Deviation 51.7 H (36.4-46.3) fL Plt Count 123 L (182-369) K/mm3 MPV 10.9 (9.4-12.3) fl Neut % (Auto) 61.3 (34.0-71.1) % Lymph % (Auto) 25.2 (19.3-51.7) % [place] % (Auto) 9.8 (4.7-12.5) % Eos % (Auto) 3.3 (0.7-5.8) Baso % (Auto) 0.2 (0.1-1.2) % Neut # (Auto) 3.21 (1.56-6.13) K/mm3 Lymph # (Auto) 1.32 (1.18-3.74) K/mm3 [place] # (Auto) 0.51 H (0.24-0.36) K/mm3 Eos # (Auto) 0.17 (0.04-0.36) K/mm3 Baso # (Auto) 0.01 (0.01-0.08) K/mm3 Sodium 147 H (136-145) mEq/L Potassium 3.3 L 3.5 (3.5-5.1) mEq/L Chloride 111 H (98-107) mEq/L Carbon Dioxide 27 (21-32) mEq/L Anion Gap 12.5 (5-15) BUN 18 (7-18) mg/dL Creatinine 0.9 (0.55-1.02) mg/dL Est Cr Clr Drug Dosing 42.68 mL/min Estimated GFR (MDRD) > 60 (>60) mL/min BUN/Creatinine Ratio 20.0 H (14-18) Glucose 74 L (83-115) mg/dL Calcium 8.2 L (8.5-10.1) mg/dL Magnesium 2.0 (1.8-2.4) mg/dl C-Reactive Protein 1.1 H* (<1.0) mg/dL Med Orders - Current: Current Medications Acetaminophen (Tylenol) 650 mg PO Q4H PRN PRN Reason: Pain (Mild 1-3)/fever Hydrocodone Bitart/Acetaminophen ([place] 325-5 Mg) 1 tab PO Q4H PRN PRN Reason: Pain (moderate 4-6) Albuterol/Ipratropium (Duoneb 3.0-0.5 Mg/3 Ml) 3 ml NEB Q4H PRN PRN Reason: Shortness Of Breath/wheezing Artificial Tears (Refresh Liquigel 1%) 0 ml EYEBOTH DAILY PRN PRN Reason: Dry Eyes Atenolol (Tenormin) 50 mg PO DAILY [facility] Last Admin: 07/10/18 10:18 Dose: Not Given Calcium Carbonate (Calcium Carbonate/Vitamin D 600 Mg-200 Unit) 1 tab PO BIDMEALS [facility] Last Admin: 07/11/18 06:36 Dose: Not Given Cyanocobalamin (Vitamin B12) 1,000 mcg PO DAILY [facility] Last Admin: 07/10/18 10:19 Dose: 1,000 mcg Diclofenac Sodium (Voltaren 1% Gel) 0 gm TOP BID [facility] Last Admin: 07/10/18 21:00 Dose: Not Given Diltiazem HCl (Cardizem Cd) 120 mg PO DAILY [facility] Last Admin: 07/10/18 10:23 Dose: Not Given Flunisolide (Nasalide Nasal [place]) 0 ml CATHY BID [facility] Last Admin: 07/10/18 20:56 Dose: 2 sprays Folic Acid (Folic Acid) 0.5 mg PO DAILY [facility] Last Admin: 07/10/18 10:19 Dose: 0.5 mg Guaifenesin (Mucinex) 1,200 mg PO BID [facility] Last Admin: 07/10/18 20:55 Dose: 1,200 mg Hydralazine HCl (Apresoline) 10 mg IVPUSH Q4H PRN PRN Reason: Hypertension Hydromorphone HCl (Dilaudid) 0.25 mg IVPUSH Q2H PRN PRN Reason: Pain (severe 7-10) Promethazine HCl 6.25 mg/ (Sodium Chloride) 50.25 mls @ 100 mls/hr IV Q6H PRN PRN Reason: Nausea/Vomiting Levothyroxine Sodium (Synthroid) 50 mcg PO SuMoWeThFrSa@0600 [facility] Last Admin: 07/11/18 06:36 Dose: Not Given Levothyroxine Sodium (Synthroid) 100 mcg PO Tu@0600 [facility] Loratadine (Claritin) 10 mg PO Q48H [facility] Last Admin: 07/10/18 12:01 Dose: 10 mg Lorazepam (Ativan) 0.5 mg IV Q6H PRN PRN Reason: Anxiety Melatonin (Melatonin) 6 mg PO BEDTIME [facility] Last Admin: 07/10/18 20:55 Dose: 6 mg Metoprolol Tartrate (Lopressor) 5 mg IVPUSH Q4H PRN PRN Reason: Tachycardia Multivitamins (Thera) 1 each PO DAILY [facility] Last Admin: 07/10/18 10:21 Dose: 1 each Ondansetron HCl (Zofran) 4 mg IV Q6H PRN PRN Reason: Nausea/Vomiting Pantoprazole Sodium (Protonix) 40 mg PO ACBREAKFAST [facility] Last Admin: 07/11/18 06:36 Dose: Not Given Polyethylene Glycol (Miralax) 17 gm PO Q72H [facility] Last Admin: 07/10/18 21:01 Dose: Not Given Potassium Chloride (Klor-Con M20) 40 meq PO BID [facility] Stop: 07/11/18 21:01 Last Admin: 07/10/18 20:55 Dose: 40 meq Rosuvastatin Calcium (Crestor) 20 mg PO DAILY [facility] Last Admin: 07/10/18 10:21 Dose: 20 mg Sertraline HCl (Zoloft) 75 mg PO DAILY [facility] Last Admin: 07/10/18 10:14 Dose: 75 mg Sodium Chloride (Saline Flush) 10 ml FLUSH ASDIRECTED PRN PRN Reason: Keep Vein Open Last Admin: 07/07/18 17:33 Dose: 10 ml Temazepam (Restoril) 15 mg PO BEDTIME PRN PRN Reason: Sleep Last Admin: 07/10/18 23:29 Dose: 15 mg Discontinued Medications Bisacodyl (Dulcolax) 10 mg RECTAL BID [facility] Stop: 07/08/18 09:01 Last Admin: 07/08/18 22:21 Dose: 10 mg Potassium Chloride 10 meq/ (Premix) 100 mls @ 100 mls/hr IV ONETIME ONE Stop: 07/07/18 19:43 Last Admin: 07/07/18 19:09 Dose: 100 mls/hr Sodium Chloride (Normal Saline) 1,000 mls @ 50 mls/hr IV ASDIRECTED [facility] Last Admin: 07/07/18 19:09 Dose: 50 mls/hr Sodium Chloride (Normal Saline) 1,000 mls @ 125 mls/hr IV ASDIRECTED [facility] Last Admin: 07/10/18 04:43 Dose: 125 mls/hr Lactulose (Cephulac) 20 gm PO Q6H [facility] Last Admin: 07/09/18 18:56 Dose: 20 gm Levothyroxine Sodium (Levothyroxine) 25 mcg PO SuMoWeThFrSa@0600 [facility] Levothyroxine Sodium (Synthroid) 50 mcg PO Tu@0600 [facility] Lidocaine HCl (Xylocaine 2% Jelly) 10 ml MUCMEM ONETIME ONE Stop: 07/07/18 17:59 Last Admin: 07/07/18 18:05 Dose: 10 ml Loratadine (Claritin) 10 mg PO DAILY [facility] Last Admin: 07/08/18 09:16 Dose: 10 mg Magnesium Sulfate (Pharmacy To Dose - Magnesium Replacement) 0 dose .XX ASDIRECTED PRN PRN Reason: RX TO WATCH MAG LEVELS Metoclopramide HCl (Reglan) 5 mg IVPUSH TID@0700,1400,2100 [facility] Stop: 07/08/18 21:01 Last Admin: 07/08/18 22:24 Dose: 5 mg Non-Formulary Medication (Acetaminophen) 650 mg PO Q8H PRN PRN Reason: Pain Polyethylene Glycol (Miralax) 17 gm PO ONETIME ONE Stop: 07/08/18 00:16 Last Admin: 07/08/18 00:15 Dose: 17 gm Polyethylene Glycol/Electrolytes (Golytely) 4,000 ml PO ONETIME ONE Stop: 07/10/18 17:01 Last Admin: 07/10/18 17:49 Dose: 4 liter Potassium Chloride (Klor-Con 10) 20 meq PO BID [facility] Potassium Chloride (Pharmacy To Dose - Potassium Replacement) 0 dose .XX ASDIRECTED PRN PRN Reason: RX TO WATCH K LEVELS Potassium Chloride (Klor-Con M20) 60 meq PO ONETIME ONE Stop: 07/08/18 00:16 Last Admin: 07/08/18 00:12 Dose: 60 meq Potassium Chloride (Klor-Con M20) 40 meq PO ONETIME ONE Stop: 07/08/18 09:31 Last Admin: 07/08/18 09:40 Dose: 40 meq - Exam Quality Assessment: DVT Prophylaxis General: Alert, Oriented, Cooperative, No Acute Distress HEENT: Pupils Equal, Pupils Reactive, EOMI, Mucous Membr. Moist/[place] Neck: Supple, Trachea Midline Lungs: Clear to Auscultation, Normal Respiratory Effort Cardiovascular: Irregular Rhythm (A-Fib) GI/Abdominal Exam: Normal Bowel Sounds, Soft, Non-Tender, No Organomegaly, No Distention (Female) Exam: Deferred Back Exam: Normal Inspection, Full Range of Motion Extremities: Normal Inspection, Normal Range of Motion, Non-Tender, No Pedal Edema, Normal Capillary Refill Peripheral Pulses: 2+: Radial (L), Radial (R), Dorsalis Pedis (L), Dorsalis Pedis (R) Skin: Warm, Dry, Intact Neurological: No New Focal Deficit Psy/Mental Status: Alert, Normal Affect, Normal Mood - Problem List & Annotations (1) Chronic renal insufficiency, stage IV (severe) SNOMED Code(s): 31778833 Code(s): N18.4 - CHRONIC KIDNEY DISEASE, STAGE 4 (SEVERE) Status: Acute Priority: High Current Visit: Yes (2) Congestive heart failure SNOMED Code(s): 52443304 Code(s): I50.9 - HEART FAILURE, UNSPECIFIED Status: Acute Priority: High Current Visit: Yes Qualifiers: Heart failure type: diastolic Heart failure chronicity: acute on chronic Qualified Code(s): I50.33 - Acute on chronic diastolic (congestive) heart failure (3) Hypermagnesemia SNOMED Code(s): 38963368 Code(s): E83.41 - HYPERMAGNESEMIA Status: Acute Priority: Medium Current Visit: Yes (4) Hypokalemia SNOMED Code(s): 11753509 Code(s): E87.6 - HYPOKALEMIA Status: Acute Priority: High Current Visit : Yes (5) Hyponatremia SNOMED Code(s): 26131126 Code(s): E87.1 - HYPO-OSMOLALITY AND HYPONATREMIA Status: Acute Priority : High Current Visit: Yes (6) Upper gastrointestinal hemorrhage SNOMED Code(s): 44230080 Code(s): K92.2 - GASTROINTESTINAL HEMORRHAGE, UNSPECIFIED Status: Acute Priority: High Current Visit: Yes (7) Volume depletion, gastrointestinal loss SNOMED Code(s): 27275417 Code(s): E86.9 - VOLUME DEPLETION, UNSPECIFIED Status: Acute Priority: High Current Visit: Yes (8) Elevated troponin SNOMED Code(s): 037085749, 031497314, 736596044 Code(s): R74.8 - ABNORMAL LEVELS OF OTHER SERUM ENZYMES Status: Acute Priority: High Current Visit: Yes - Problem List Review Problem List Initiated/Reviewed/Updated: Yes - Plan Plan:: I/P: Acute: GI Bleed -Reports bleeding per rectum for past 3-4 days along with constipation -Hx/ of hemorrhoids but unsure what type; on eliquis daily for A-fib -Has to wear pad at night due to oozing of blood from rectum -Abdominal X-ray in ED shows increased colonic stools -Sigmoidoscopy performed in ED: * Advanced to 15cm * Could see nothing but blood * Internal and external hemorrhoids noted with no active bleeding evident -Hgb 17.9-->16.5-->14.3-->13.4-->13.1 -Hct 50.9-->47.8-->43.4-->41.7-->40.5 -PT 12.5; INR 1.15; APTT 27 -NPO overnight -Lactulose/bisacodyl suppository starting in AM until BM -Hold Eliquis -Reports last colonoscopy was a long time ago -Dr. Burleson, general surgery consult -Continue to hold Eliquis -Advance diet to clear liquids for now -NPO after midnight on Wednesday07/11/18 -Bowel prep Wednesday07/10/18 -Endoscopy Wednesday07/11/18 Inactive: Elevated troponin, trending down -Troponin 0.104-->0.131-->0.100 -CKMB 7.5-->7.9 -12-lead EKG shows 100% ventricular paced rhythm -Significant cardiac history including diastolic HF, HTN, HLD, CAD, A-fib on eliquis, Pacemaker -Likely troponin leak from chronic heart issues -Trend troponins/CKMB -BNP 5776 Resolved: Hyponatremia -Reports she has not been eating or drinking much with dificulty caring for herself -Sodium 128-->132-->139-->143-->147 -IV fluids as ordered -Monitor S/P Hypokalemia -2/2 inadequate intake -Potassium 2.8-->3.4-->3.2-->2.8-->3.3-->3.5 -Supplement -Pharmacy to monitor and supplement Kidney failure -Acute on chronic -Last visit of 11/2016 showed creatinine of 1.0 and eGFR of 55 -Unsure of recent baseline -BUN 133-->128-->83-->34-->18 -Creatinine 2.3-->2.1-->1.5-->1.0-->0.9 -eGFR 21-->23-->34-->55--> greater than 60 -Will likely need eliquis decreased from 5mg to 2.5 mg on discharge -IV fluids as ordered - caution with worsening heart failure Chronic: Diastolic HF HLD HTN Pacemaker Renal disease Hypothyroidism Hx/o A-fib on eliquis Osteoporosis Renal stones Depression Raynauds syndrome Plan: Admit to medical floor on telemetry Home medications as ordered Other orders as indicated above PT/OT CM/SW - reports difficulty managing at home Spiritual care consult Flanger consult Routine AM labs DVT prophylaxis: SCDs - Hold home eliquis due to GI bleed Code status: DNR/DNI; PCP: Dr. Mcneal DC ~48 hours, GI work up/diagnostic procedure on 07/11. LOS>96 hours GI bleed evaluation. <Bereket Hood - Last Filed: 07/11/18 14:16> - Patient Data Vitals - Most Recent: Last Vital Signs Temp 97.5 F 07/11/18 10:45 Pulse 60 07/11/18 12:31 Resp 14 07/11/18 10:45 BP 108/66 07/11/18 13:30 Pulse Ox 97 04/15/19 12:31 I&O - Last 24 Hours: Intake & Output 07/10/18 07/11/18 07/11/18 22:59 06:59 14:59 Intake Total 2470 4000 Output Total 1000 500 Balance 1470 3500 Lab Results Last 24 Hours: Laboratory Results - last 24 hr 07/11/18 07/11/18 Range/Units 06:35 06:35 WBC 5.23 (3.98-10.04) K/mm3 RBC 4.25 (3.98-5.22) M/mm3 Hgb 13.1 (11.2-15.7) gm/L Hct 40.5 (34.1-44.9) % MCV 95.3 H (79.4-94.8) fl MCH 30.8 (25.6-32.2) pg MCHC 32.3 (32.2-35.5) g/dl RDW Std Deviation 51.7 H (36.4-46.3) fL Plt Count 123 L (182-369) K/mm3 MPV 10.9 (9.4-12.3) fl Neut % (Auto) 61.3 (34.0-71.1) % Lymph % (Auto) 25.2 (19.3-51.7) % [place] % (Auto) 9.8 (4.7-12.5) % Eos % (Auto) 3.3 (0.7-5.8) Baso % (Auto) 0.2 (0.1-1.2) % Neut # (Auto) 3.21 (1.56-6.13) K/mm3 Lymph # (Auto) 1.32 (1.18-3.74) K/mm3 [place] # (Auto) 0.51 H (0.24-0.36) K/mm3 Eos # (Auto) 0.17 (0.04-0.36) K/mm3 Baso # (Auto) 0.01 (0.01-0.08) K/mm3 Sodium 147 H (136-145) mEq/L Potassium 3.5 (3.5-5.1) mEq/L Chloride 111 H (98-107) mEq/L Carbon Dioxide 27 (21-32) mEq/L Anion Gap 12.5 (5-15) BUN 18 (7-18) mg/dL Creatinine 0.9 (0.55-1.02) mg/dL Est Cr Clr Drug Dosing 42.68 mL/min Estimated GFR (MDRD) > 60 (>60) mL/min BUN/Creatinine Ratio 20.0 H (14-18) Glucose 74 L (83-115) mg/dL Calcium 8.2 L (8.5-10.1) mg/dL Magnesium 2.0 (1.8-2.4) mg/dl C-Reactive Protein 1.1 H* (<1.0) mg/dL Med Orders - Current: Current Medications Acetaminophen (Tylenol) 650 mg PO Q4H PRN PRN Reason: Pain (Mild 1-3)/fever Hydrocodone Bitart/Acetaminophen ([place] 325-5 Mg) 1 tab PO Q4H PRN PRN Reason: Pain (moderate 4-6) Albuterol/Ipratropium (Duoneb 3.0-0.5 Mg/3 Ml) 3 ml NEB Q4H PRN PRN Reason: Shortness Of Breath/wheezing Artificial Tears (Refresh Liquigel 1%) 0 ml EYEBOTH DAILY PRN PRN Reason: Dry Eyes Atenolol (Tenormin) 50 mg PO DAILY [facility] Last Admin: 07/11/18 09:03 Dose: 50 mg Calcium Carbonate (Calcium Carbonate/Vitamin D 600 Mg-200 Unit) 1 tab PO BIDMEALS [facility] Last Admin: 07/11/18 06:36 Dose: Not Given Cyanocobalamin (Vitamin B12) 1,000 mcg PO DAILY [facility] Last Admin: 07/11/18 09:26 Dose: Not Given Diclofenac Sodium (Voltaren 1% Gel) 0 gm TOP BID [facility] Last Admin: 07/11/18 09:26 Dose: Not Given Diltiazem HCl (Cardizem Cd) 120 mg PO DAILY [facility] Last Admin: 07/11/18 09:04 Dose: 120 mg Flunisolide (Nasalide Nasal [place]) 0 ml CATHY BID [facility] Last Admin: 07/11/18 09:25 Dose: Not Given Folic Acid (Folic Acid) 0.5 mg PO DAILY [facility] Last Admin: 07/11/18 09:23 Dose: Not Given Guaifenesin (Mucinex) 1,200 mg PO BID [facility] Last Admin: 07/11/18 09:25 Dose: Not Given Hydralazine HCl (Apresoline) 10 mg IVPUSH Q4H PRN PRN Reason: Hypertension Hydromorphone HCl (Dilaudid) 0.25 mg IVPUSH Q2H PRN PRN Reason: Pain (severe 7-10) Promethazine HCl 6.25 mg/ (Sodium Chloride) 50.25 mls @ 100 mls/hr IV Q6H PRN PRN Reason: Nausea/Vomiting Levothyroxine Sodium (Synthroid) 50 mcg PO SuMoWeThFrSa@0600 [facility] Last Admin: 07/11/18 06:36 Dose: Not Given Levothyroxine Sodium (Synthroid) 100 mcg PO Tu@0600 [facility] Loratadine (Claritin) 10 mg PO Q24H [facility] Lorazepam (Ativan) 0.5 mg IV Q6H PRN PRN Reason: Anxiety Melatonin (Melatonin) 6 mg PO BEDTIME [facility] Last Admin: 07/10/18 20:55 Dose: 6 mg Metoprolol Tartrate (Lopressor) 5 mg IVPUSH Q4H PRN PRN Reason: Tachycardia Multivitamins (Thera) 1 each PO DAILY [facility] Last Admin: 07/11/18 09:26 Dose: Not Given Ondansetron HCl (Zofran) 4 mg IV Q6H PRN PRN Reason: Nausea/Vomiting Pantoprazole Sodium (Protonix) 40 mg PO ACBREAKFAST [facility] Last Admin: 07/11/18 06:36 Dose: Not Given Polyethylene Glycol (Miralax) 17 gm PO Q72H [facility] Last Admin: 07/10/18 21:01 Dose: Not Given Potassium Chloride (Klor-Con M20) 40 meq PO BID [facility] Stop: 07/11/18 21:01 Last Admin: 07/11/18 12:59 Dose: 40 meq Rosuvastatin Calcium (Crestor) 20 mg PO DAILY [facility] Last Admin: 07/11/18 09:22 Dose: Not Given Sertraline HCl (Zoloft) 75 mg PO DAILY [facility] Last Admin: 07/11/18 09:26 Dose: Not Given Sodium Chloride (Saline Flush) 10 ml FLUSH ASDIRECTED PRN PRN Reason: Keep Vein Open Last Admin: 07/07/18 17:33 Dose: 10 ml Temazepam (Restoril) 15 mg PO BEDTIME PRN PRN Reason: Sleep Last Admin: 07/10/18 23:29 Dose: 15 mg Discontinued Medications Bisacodyl (Dulcolax) 10 mg RECTAL BID [facility] Stop: 07/08/18 09:01 Last Admin: 07/08/18 22:21 Dose: 10 mg Potassium Chloride 10 meq/ (Premix) 100 mls @ 100 mls/hr IV ONETIME ONE Stop: 07/07/18 19:43 Last Admin: 07/07/18 19:09 Dose: 100 mls/hr Sodium Chloride (Normal Saline) 1,000 mls @ 50 mls/hr IV ASDIRECTED [facility] Last Admin: 07/07/18 19:09 Dose: 50 mls/hr Sodium Chloride (Normal Saline) 1,000 mls @ 125 mls/hr IV ASDIRECTED [facility] Last Admin: 07/10/18 04:43 Dose: 125 mls/hr Lactulose (Cephulac) 20 gm PO Q6H [facility] Last Admin: 07/09/18 18:56 Dose: 20 gm Levothyroxine Sodium (Levothyroxine) 25 mcg PO SuMoWeThFrSa@0600 [facility] Levothyroxine Sodium (Synthroid) 50 mcg PO Tu@0600 [facility] Lidocaine HCl (Xylocaine 2% Jelly) 10 ml MUCMEM ONETIME ONE Stop: 07/07/18 17:59 Last Admin: 07/07/18 18:05 Dose: 10 ml Loratadine (Claritin) 10 mg PO DAILY [facility] Last Admin: 07/08/18 09:16 Dose: 10 mg Loratadine (Claritin) 10 mg PO Q48H [facility] Last Admin: 07/10/18 12:01 Dose: 10 mg Magnesium Sulfate (Pharmacy To Dose - Magnesium Replacement) 0 dose .XX ASDIRECTED PRN PRN Reason: RX TO WATCH MAG LEVELS Metoclopramide HCl (Reglan) 5 mg IVPUSH TID@0700,1400,2100 [facility] Stop: 07/08/18 21:01 Last Admin: 07/08/18 22:24 Dose: 5 mg Non-Formulary Medication (Acetaminophen) 650 mg PO Q8H PRN PRN Reason: Pain Polyethylene Glycol (Miralax) 17 gm PO ONETIME ONE Stop: 07/08/18 00:16 Last Admin: 07/08/18 00:15 Dose: 17 gm Polyethylene Glycol/Electrolytes (Golytely) 4,000 ml PO ONETIME ONE Stop: 07/10/18 17:01 Last Admin: 07/10/18 17:49 Dose: 4 liter Potassium Chloride (Klor-Con 10) 20 meq PO BID [facility] Potassium Chloride (Pharmacy To Dose - Potassium Replacement) 0 dose .XX ASDIRECTED PRN PRN Reason: RX TO WATCH K LEVELS Potassium Chloride (Klor-Con M20) 60 meq PO ONETIME ONE Stop: 07/08/18 00:16 Last Admin: 07/08/18 00:12 Dose: 60 meq Potassium Chloride (Klor-Con M20) 40 meq PO ONETIME ONE Stop: 07/08/18 09:31 Last Admin: 07/08/18 09:40 Dose: 40 meq Potassium Chloride (Klor-Con M20) 40 meq PO BID [facility] Stop: 07/11/18 21:01 Last Admin: 07/11/18 09:24 Dose: Not Given Propofol (Diprivan 20 Ml) Confirm Administered Dose 200 mg .ROUTE .STK-MED ONE Stop: 07/11/18 09:41 Propofol (Diprivan 20 Ml) Confirm Administered Dose 200 mg .ROUTE .STK-MED ONE Stop: 07/11/18 09:57 - Problem List Review Problem List Initiated/Reviewed/Updated: Yes - Plan Plan:: Presumptive diagnosis at endoscopy showed proctitis. Awaiting pathology results. Advance diet.
--- NOTE | 2018-07-11 09:02 | PCM.PREANE ---
Preanesthetic Assessment - Anesthesia/Transfusion/Family Hx Anesthesia History: Prior Anesthesia Without Reaction Family History of Anesthesia Reaction: No Transfusion History: Prior Transfusion Without Reaction - Review of Systems General: Weakness, Other (ER on 07/07 for rectal bleeding) Pulmonary: Shortness of Breath, Other (severe CHF, SOB on chronic basis) Cardiovascular: Other (HTN, cardiomyopathy, afib, pacemaker, EKG paced rhythm at 60, increased troponin, r/Arlen, denies chest pain) Gastrointestinal: Other (rectal bleeding) Neurological: Difficulty Walking (walks with walker) Other: Reports: Easy Bleeding, Thyroid Problems - Physical Assessment NPO Status Date: 07/11/18 NPO Status Time: 00:01 Pulse: 65 O2 Sat by Pulse Oximetry: 99 Respiratory Rate: 14 Blood Pressure: 118/65 Temperature: 36.4 C Vital Signs: Last Vital Signs Temp 36.4 C 07/11/18 02:05 Pulse 65 07/11/18 02:05 Resp 14 07/11/18 02:05 BP 118/65 07/11/18 06:29 Pulse Ox 99 07/11/18 02:05 Height: 1.55 m Weight: 82.554 kg ASA Class: 3 Mental Status: Alert & Oriented x3 Airway Class: Mallampati = 2 Dentition: Reports: Normal Dentition Thyro-Mental Finger Breadths: 3 Mouth Opening Finger Breadths: 3 ROM/Head Extension: Full Lungs: Clear to Auscultation, Normal Respiratory Effort Cardiovascular: Regular Rate, Regular Rhythm - Lab Values: Laboratory Last Values WBC 5.23 K/mm3 (3.98-10.04) 07/11/18 06:35 RBC 4.25 M/mm3 (3.98-5.22) 07/11/18 06:35 Hgb 13.1 gm/L (11.2-15.7) 07/11/18 06:35 Hct 40.5 % (34.1-44.9) 07/11/18 06:35 MCV 95.3 fl (79.4-94.8) H 07/11/18 06:35 MCH 30.8 pg (25.6-32.2) 07/11/18 06:35 MCHC 32.3 g/dl (32.2-35.5) 07/11/18 06:35 RDW Std Deviation 51.7 fL (36.4-46.3) H 07/11/18 06:35 Plt Count 123 K/mm3 (182-369) L 07/11/18 06:35 MPV 10.9 fl (9.4-12.3) 07/11/18 06:35 Neut % (Auto) 61.3 % (34.0-71.1) 07/11/18 06:35 Lymph % (Auto) 25.2 % (19.3-51.7) 07/11/18 06:35 [place] % (Auto) 9.8 % (4.7-12.5) 07/11/18 06:35 Eos % (Auto) 3.3 (0.7-5.8) 07/11/18 06:35 Baso % (Auto) 0.2 % (0.1-1.2) 07/11/18 06:35 Neut # (Auto) 3.21 K/mm3 (1.56-6.13) 07/11/18 06:35 Lymph # (Auto) 1.32 K/mm3 (1.18-3.74) 07/11/18 06:35 [place] # (Auto) 0.51 K/mm3 (0.24-0.36) H 07/11/18 06:35 Eos # (Auto) 0.17 K/mm3 (0.04-0.36) 07/11/18 06:35 Baso # (Auto) 0.01 K/mm3 (0.01-0.08) 07/11/18 06:35 Neutrophils % (Manual) 84 % (40-60) H 07/07/18 17:00 Band Neutrophils % 0 % (0-10) 07/07/18 17:00 Lymphocytes % (Manual) 9 % (20-40) L 07/07/18 17:00 Atypical Lymphs % 0 % 07/07/18 17:00 Monocytes % (Manual) 7 % (2-10) 07/07/18 17:00 Eosinophils % (Manual) 0 % (0.7-5.8) L 07/07/18 17:00 Basophils % (Manual) 0 (0.1-1.2) L 07/07/18 17:00 Manual Slide Review Normal smear 07/08/18 05:35 Platelet Estimate Adequate 07/07/18 17:00 RBC Morph Comment Normal 07/07/18 17:00 PT 12.5 SECONDS (9.5-12.1) H 07/07/18 17:00 INR 1.15 07/07/18 17:00 APTT 27 SECONDS (24-31) 07/07/18 17:00 Sodium 147 mEq/L (136-145) H 07/11/18 06:35 Potassium 3.5 mEq/L (3.5-5.1) 07/11/18 06:35 Chloride 111 mEq/L (98-107) H 07/11/18 06:35 Carbon Dioxide 27 mEq/L (21-32) 07/11/18 06:35 Anion Gap 12.5 (5-15) 07/11/18 06:35 BUN 18 mg/dL (7-18) 07/11/18 06:35 Creatinine 0.9 mg/dL (0.55-1.02) 07/11/18 06:35 Est Cr Clr Drug Dosing 42.68 mL/min 07/11/18 06:35 Estimated GFR (MDRD) > 60 mL/min (>60) 07/11/18 06:35 BUN/Creatinine Ratio 20.0 (14-18) H 07/11/18 06:35 Glucose 74 mg/dL (83-115) L 07/11/18 06:35 Calcium 8.2 mg/dL (8.5-10.1) L 07/11/18 06:35 Magnesium 2.0 mg/dl (1.8-2.4) 07/11/18 06:35 Total Bilirubin 0.8 mg/dL (0.2-1.0) 07/07/18 17:00 AST 34 U/L (15-37) 07/07/18 17:00 ALT 35 U/L (14-59) 07/07/18 17:00 Alkaline Phosphatase 79 U/L (46-116) 07/07/18 17:00 CK-MB (CK-2) 7.9 ng/ml (0-3.6) H 07/08/18 11:14 Troponin I 0.100 ng/mL (0.00-0.056) H* 07/08/18 11:14 C-Reactive Protein 1.1 mg/dL (<1.0) H* 07/11/18 06:35 NT-Pro-B Natriuret Pep 5776 pg/mL (0-125) H 07/07/18 17:00 Total Protein 8.8 g/dl (6.4-8.2) H 07/07/18 17:00 Albumin 4.2 g/dl (3.4-5.0) 07/07/18 17:00 Globulin 4.6 gm/dL 07/07/18 17:00 Albumin/Globulin Ratio 0.9 (1-2) L 07/07/18 17:00 Urine Color Yellow (Yellow) 07/08/18 04:30 Urine Appearance Clear (Clear) 07/08/18 04:30 Urine pH 6.5 (5.0-8.0) 07/08/18 04:30 Ur Specific [place] 1.015 (1.005-1.030) 07/08/18 04:30 Urine Protein 2+ (Negative) H 07/08/18 04:30 Urine Glucose (UA) Negative (Negative) 07/08/18 04:30 Urine Ketones Negative (Negative) 07/08/18 04:30 Urine Occult Blood 3+ (Negative) H 07/08/18 04:30 Urine Nitrite Negative (Negative) 07/08/18 04:30 Urine Bilirubin Negative (Negative) 07/08/18 04:30 Urine Urobilinogen 0.2 (0.2-1.0) 07/08/18 04:30 Ur Leukocyte Esterase 2+ (Negative) H 07/08/18 04:30 Urine RBC 0-5 /hpf (0-5) 07/08/18 04:30 Urine WBC 10-20 /hpf (0-5) H 07/08/18 04:30 Ur Epithelial Cells 0-5 /hpf (0-5) 07/08/18 04:30 Urine Bacteria Not seen /hpf (FEW) 07/08/18 04:30 Urine Mucus Not seen /hpf (FEW) 07/08/18 04:30 H. pylori IgG Antibody Negative (NEGATIVE) 07/07/18 17:00 Blood Type A POSITIVE 07/07/18 17:00 Gel Antibody Screen Negative 07/07/18 17:00 - Allergies Allergies/Adverse Reactions: Allergies Allergy/AdvReac Type Severity Reaction Status Date / Time ACEINHIBITORS Allergy Intermediate Edema Verified 12/03/16 19:40 [MELYSSA Inhibitors] hydrochlorothiazide Allergy Intermediate unknown Verified 12/03/16 18:04 tetracycline [Tetracycline] Allergy Intermediate Hives Verified 12/03/16 19:41 - Blood Blood Available: No Product(s) Available: None - Acknowledgements Anesthesia Type Planned: MAC Pt an Appropriate Candidate for the Planned Anesthesia: Yes Alternatives and Risks of Anesthesia Discussed w Pt/Guardian: Yes Pt/Guardian Understands and Agrees with Anesthesia Plan: Yes PreAnesthesia Questionnaire HEENT History: Reports: Other (See Below) Other HEENT History: Pt wears glasses, cataaracts starting Cardiovascular History: Reports: Cardiomyopathy, Heart Failure, High Cholesterol , Hypertension, Pacemaker, SOB on Exertion Respiratory History: Reports: SOB Gastrointestinal History: Reports: Hemorrhoids, Hiatal Hernia Genitourinary History: Reports: Renal Calculus, Renal Disease, Other (See Below) Other Genitourinary History: Bilat stones present in kidneys Musculoskeletal History: Reports: Arthritis, Back Pain, Chronic Psychiatric History: Reports: Anxiety, Depression Endocrine/Metabolic History: Reports: Hypothyroidism, Obesity/BMI 30+ Dermatologic History: Reports: Other (See Below) Other Dermatologic History: Severe dryness - Infectious Disease History Infectious Disease History: Reports: Chicken Pox, Measles - Past Surgical History Cardiovascular Surgical History: Reports: Other (See Below) Other Cardiovascular Surgeries/Procedures: Catheterized X2 Respiratory Surgical History: Reports: None GI Surgical History: Reports: Hernia Repair/Other Endocrine Surgical History: Reports: None Musculoskeletal Surgical History: Reports: Hip Replacement, Shoulder Surgery Other Musculoskeletal Surgeries/Procedures:: X 2 Hips, X2 shoulders - SUBSTANCE USE Smoking Status *Q: Former Smoker Tobacco Use Within Last Twelve Months: No Second Hand Smoke Exposure: No Date of Last Drink: 06/19/18 Recreational Drug Use History: No - HOME MEDS Home Medications: Home Meds Atenolol 50 mg PO DAILY 07/30/13 [History] Calcium Carbonate/Vitamin D3 [Caltrate-600 with Vit D Tab] 1 each PO BID [History] Folic Acid 0.5 mg PO DAILY 07/30/13 [History] Furosemide [Lasix] 80 mg PO BID 07/30/13 [History] Levothyroxine [Synthroid] 50 mcg PO ASDIRECTED 07/30/13 [History] Levothyroxine [Synthroid] 100 mcg PO ASDIRECTED 07/30/13 [History] Multivitamin [Multivitamins] 1 each PO DAILY 07/30/13 [History] Omeprazole [Prilosec] 20 mg PO DAILY 07/30/13 [History] Potassium Chloride [Klor-Con 10] 20 meq PO QAM 07/30/13 [History] Propylene Glycol/Peg 400 [Systane Liquid Gel Eye Drops] 1 drop EYEBOTH DAILY PRN 07/30/13 [History] Acetaminophen [Tylenol Arthritis Pain] 650 mg PO Q8H PRN 07/07/18 [History] Apixaban [Eliquis] 5 mg PO BID 07/07/18 [History] Cyanocobalamin (Vitamin B-12) [B-12] 1,000 mcg PO DAILY 07/07/18 [History] Diclofenac Sodium [Voltaren 1% Gel] 2 gm TOP BID PRN 07/07/18 [History] Diltiazem [Cardizem CD] 120 mg PO DAILY 07/07/18 [History] Docusate Sodium 200 mg PO DAILY 07/07/18 [History] Fluticasone Propionate [Flonase Allergy Relief] 1 spray CATHY BID 07/07/18 [ History] Loratadine 10 mg PO DAILY 07/07/18 [History] Melatonin 5 mg PO BEDTIME 07/07/18 [History] Polyethylene Glycol [Polyox Wsr-301] 17 g PO Q72H 07/07/18 [History] Rosuvastatin Calcium 20 mg PO DAILY 07/07/18 [History] Sertraline [Zoloft] 75 mg PO QPM 07/07/18 [History] guaiFENesin [Mucinex] 1,200 mg PO BID 07/07/18 [History] Potassium Chloride [K-Tab ER] 10 meq PO QPM 07/08/18 [History] metOLazone [Metolazone] 5 mg PO MOFR 07/08/18 [History] - CURRENT (IN HOUSE) MEDS Current Meds: Current Medications Acetaminophen (Tylenol) 650 mg PO Q4H PRN PRN Reason: Pain (Mild 1-3)/fever Hydrocodone Bitart/Acetaminophen ([place] 325-5 Mg) 1 tab PO Q4H PRN PRN Reason: Pain (moderate 4-6) Albuterol/Ipratropium (Duoneb 3.0-0.5 Mg/3 Ml) 3 ml NEB Q4H PRN PRN Reason: Shortness Of Breath/wheezing Artificial Tears (Refresh Liquigel 1%) 0 ml EYEBOTH DAILY PRN PRN Reason: Dry Eyes Atenolol (Tenormin) 50 mg PO DAILY [facility] Last Admin: 07/10/18 10:18 Dose: Not Given Calcium Carbonate (Calcium Carbonate/Vitamin D 600 Mg-200 Unit) 1 tab PO BIDMEALS [facility] Last Admin: 07/11/18 06:36 Dose: Not Given Cyanocobalamin (Vitamin B12) 1,000 mcg PO DAILY [facility] Last Admin: 07/10/18 10:19 Dose: 1,000 mcg Diclofenac Sodium (Voltaren 1% Gel) 0 gm TOP BID [facility] Last Admin: 07/10/18 21:00 Dose: Not Given Diltiazem HCl (Cardizem Cd) 120 mg PO DAILY [facility] Last Admin: 07/10/18 10:23 Dose: Not Given Flunisolide (Nasalide Nasal [place]) 0 ml CATHY BID [facility] Last Admin: 07/10/18 20:56 Dose: 2 sprays Folic Acid (Folic Acid) 0.5 mg PO DAILY [facility] Last Admin: 07/10/18 10:19 Dose: 0.5 mg Guaifenesin (Mucinex) 1,200 mg PO BID [facility] Last Admin: 07/10/18 20:55 Dose: 1,200 mg Hydralazine HCl (Apresoline) 10 mg IVPUSH Q4H PRN PRN Reason: Hypertension Hydromorphone HCl (Dilaudid) 0.25 mg IVPUSH Q2H PRN PRN Reason: Pain (severe 7-10) Promethazine HCl 6.25 mg/ (Sodium Chloride) 50.25 mls @ 100 mls/hr IV Q6H PRN PRN Reason: Nausea/Vomiting Levothyroxine Sodium (Synthroid) 50 mcg PO SuMoWeThFrSa@0600 [facility] Last Admin: 07/11/18 06:36 Dose: Not Given Levothyroxine Sodium (Synthroid) 100 mcg PO Tu@0600 [facility] Loratadine (Claritin) 10 mg PO Q24H [facility] Lorazepam (Ativan) 0.5 mg IV Q6H PRN PRN Reason: Anxiety Melatonin (Melatonin) 6 mg PO BEDTIME [facility] Last Admin: 07/10/18 20:55 Dose: 6 mg Metoprolol Tartrate (Lopressor) 5 mg IVPUSH Q4H PRN PRN Reason: Tachycardia Multivitamins (Thera) 1 each PO DAILY [facility] Last Admin: 07/10/18 10:21 Dose: 1 each Ondansetron HCl (Zofran) 4 mg IV Q6H PRN PRN Reason: Nausea/Vomiting Pantoprazole Sodium (Protonix) 40 mg PO ACBREAKFAST [facility] Last Admin: 07/11/18 06:36 Dose: Not Given Polyethylene Glycol (Miralax) 17 gm PO Q72H [facility] Last Admin: 07/10/18 21:01 Dose: Not Given Potassium Chloride (Klor-Con M20) 40 meq PO BID [facility] Stop: 07/11/18 21:01 Last Admin: 07/10/18 20:55 Dose: 40 meq Rosuvastatin Calcium (Crestor) 20 mg PO DAILY [facility] Last Admin: 07/10/18 10:21 Dose: 20 mg Sertraline HCl (Zoloft) 75 mg PO DAILY [facility] Last Admin: 07/10/18 10:14 Dose: 75 mg Sodium Chloride (Saline Flush) 10 ml FLUSH ASDIRECTED PRN PRN Reason: Keep Vein Open Last Admin: 07/07/18 17:33 Dose: 10 ml Temazepam (Restoril) 15 mg PO BEDTIME PRN PRN Reason: Sleep Last Admin: 07/10/18 23:29 Dose: 15 mg Discontinued Medications Bisacodyl (Dulcolax) 10 mg RECTAL BID [facility] Stop: 07/08/18 09:01 Last Admin: 07/08/18 22:21 Dose: 10 mg Potassium Chloride 10 meq/ (Premix) 100 mls @ 100 mls/hr IV ONETIME ONE Stop: 07/07/18 19:43 Last Admin: 07/07/18 19:09 Dose: 100 mls/hr Sodium Chloride (Normal Saline) 1,000 mls @ 50 mls/hr IV ASDIRECTED [facility] Last Admin: 07/07/18 19:09 Dose: 50 mls/hr Sodium Chloride (Normal Saline) 1,000 mls @ 125 mls/hr IV ASDIRECTED [facility] Last Admin: 07/10/18 04:43 Dose: 125 mls/hr Lactulose (Cephulac) 20 gm PO Q6H [facility] Last Admin: 07/09/18 18:56 Dose: 20 gm Levothyroxine Sodium (Levothyroxine) 25 mcg PO SuMoWeThFrSa@0600 [facility] Levothyroxine Sodium (Synthroid) 50 mcg PO Tu@0600 [facility] Lidocaine HCl (Xylocaine 2% Jelly) 10 ml MUCMEM ONETIME ONE Stop: 07/07/18 17:59 Last Admin: 07/07/18 18:05 Dose: 10 ml Loratadine (Claritin) 10 mg PO DAILY [facility] Last Admin: 07/08/18 09:16 Dose: 10 mg Loratadine (Claritin) 10 mg PO Q48H [facility] Last Admin: 07/10/18 12:01 Dose: 10 mg Magnesium Sulfate (Pharmacy To Dose - Magnesium Replacement) 0 dose .XX ASDIRECTED PRN PRN Reason: RX TO WATCH MAG LEVELS Metoclopramide HCl (Reglan) 5 mg IVPUSH TID@0700,1400,2100 [facility] Stop: 07/08/18 21:01 Last Admin: 07/08/18 22:24 Dose: 5 mg Non-Formulary Medication (Acetaminophen) 650 mg PO Q8H PRN PRN Reason: Pain Polyethylene Glycol (Miralax) 17 gm PO ONETIME ONE Stop: 07/08/18 00:16 Last Admin: 07/08/18 00:15 Dose: 17 gm Polyethylene Glycol/Electrolytes (Golytely) 4,000 ml PO ONETIME ONE Stop: 07/10/18 17:01 Last Admin: 07/10/18 17:49 Dose: 4 liter Potassium Chloride (Klor-Con 10) 20 meq PO BID [facility] Potassium Chloride (Pharmacy To Dose - Potassium Replacement) 0 dose .XX ASDIRECTED PRN PRN Reason: RX TO WATCH K LEVELS Potassium Chloride (Klor-Con M20) 60 meq PO ONETIME ONE Stop: 07/08/18 00:16 Last Admin: 07/08/18 00:12 Dose: 60 meq Potassium Chloride (Klor-Con M20) 40 meq PO ONETIME ONE Stop: 07/08/18 09:31 Last Admin: 07/08/18 09:40 Dose: 40 meq
[2018-07-11] MEDS: Atenolol 50 MG Tab PO SCH (09:03)
[2018-07-11] MEDS: Diltiazem 120 MG Cap.CD PO SCH (09:04)
[2018-07-11] MEDS: Rosuvastatin 10 MG Tab PO SCH (09:22)
[2018-07-11] MEDS: Folic Acid 1 MG Tab PO SCH (09:23)
[2018-07-11] MEDS: Potassium Chloride 20 MEQ Tab.ER PO SCH ×3 (09:24→21:22)
[2018-07-11] MEDS: guaiFENesin 600 MG Tab.ER PO SCH ×2 (09:25→21:23)
[2018-07-11] MEDS: Cyanocobalamin (Vitamin B12) 1,000 MCG Tab PO SCH (09:26)
[2018-07-11] MEDS: Sertraline 50 MG Tab PO SCH (09:26)
[2018-07-11] MEDS: Multivitamins,Therapeutic Tab PO SCH (09:26)
[2018-07-11] MEDS: Diclofenac Sodium 1% Gel 100 GM Tube TOP SCH ×2 (09:26→21:24)
[2018-07-11] MEDS ORDERED: Propofol 200 MG/20 ML SDV ONE ×2 (09:40→09:56)
--- NOTE | 2018-07-11 10:21 | PCM.OPNOTE ---
- General Post-Op/Procedure Note Date of Surgery/Procedure: 07/11/18 Operative Procedure(s): colonoscopy to cecum with biopsy Pre Op Diagnosis: rectal bleeding Post-Op Diagnosis: Same Anesthesia Technique: MAC Primary Surgeon: Rufus Burleson EBL in mLs: 0 Complications: None Condition: Good Free Text/Narrative:: Intake & Output 07/10/18 07/11/18 07/11/18 23:59 07:59 15:59 Intake Total 2470 4000 Output Total 1000 500 Balance 1470 3500
--- NOTE | 2018-07-11 10:45 | PCM48HPAN ---
Post Anesthesia Note - EVALUATION WITHIN 48HRS OF ANESTHETIC Vital Signs in Normal Range: Yes Patient Participated in Evaluation: Yes Respiratory Function Stable: Yes Airway Patent: Yes Cardiovascular Function Stable: Yes Hydration Status Stable: Yes Pain Control Satisfactory: Yes Nausea and Vomiting Control Satisfactory: Yes Mental Status Recovered: Yes Pulse Rate: 65 Resp Rate: 14 Temperature: 36.4 C Blood Pressure: 118/65 Pulse Rate: 79
[2018-07-11] MEDS: Melatonin 3 MG Tab PO SCH (21:23)
[2018-07-11] MEDS: Temazepam 15 MG Cap PO PRN (22:34)
[2018-07-12] MEDS ORDERED: Levothyroxine 50 MCG Tab PO SCH (06:00)
[2018-07-12] MEDS ORDERED: Levothyroxine 100 MCG Tab PO SCH (06:00)
[2018-07-12] MEDS: Calcium Carbonate/Vitamin D3 600 MG-200 Units Tab PO SCH ×2 (06:22→17:38)
[2018-07-12] MEDS: Pantoprazole 40 MG Tab.CR PO SCH (06:22)
--- NOTE | 2018-07-12 07:18 | OR ---
DATE OF OPERATION: 07/11/2018 SURGEON: Rufus Burleson MD PREOPERATIVE DIAGNOSIS: Rectal bleeding. POSTOPERATIVE DIAGNOSIS: Rectal bleeding. OPERATION PERFORMED: Colonoscopy to cecum with biopsy of the rectum. FINDINGS: Diverticulosis in the descending sigmoid colon, mild in number. One angiodysplasia noted at 20 cm. It was not bleeding. There was inflammation of the rectum just in the distal part near the hemorrhoids consistent with proctitis. The hemorrhoids were modest to mild in number and did not show any evidence of bleeding. ANESTHESIA: Done under IV sedation. DESCRIPTION OF PROCEDURE: The patient was taken to the endoscopy room, placed in a supine position, connected to monitoring equipment, given IV sedation, placed in left lateral position. Perianal areas were inspected and showed 1 hemorrhoidal tag. Rectal exam showed good sphincter tone. A video Olympus colonoscope was then introduced into the rectum and threaded up without problem to the cecum, where the appendicular orifice was noted. Prep was excellent. [place] cleansing score grade A and the scope slowly withdrawn showing the cecum, ascending colon, transverse colon, descending colon, sigmoid colon, and rectum. The above noted rectum was biopsied at the site of inflammation. The retroflexed view could not be done. The patient tolerated the procedure, sent to recovery room in a stable condition, will be returned to the floor. ESTIMATED BLOOD LOSS: MMODAL /[id number]
--- NOTE | 2018-07-12 08:53 | PCM.DCSUM1 ---
Discharge Summary - Hospital Course HPI Initial Comments: Santos Macias is a 72 yo female who presents to our ED on 07/07/18 the [facility] with concerns over persistent bleeding per her rectum with each bowel movement and occasional straight blood with no stool. She does have a history of hemorrhoids but unsure if they're internal or external. She is on eliquis for chronic A. fib. She's been recently constipated and more short of breath. She states she is worn out not able to look after herself in terms of getting food and proper nutrition. She has severe CHF and uses 80 mg of Lasix twice a day. Reports she is getting weaker daily and unable to stand for long periods due to lightheadedness and difficulty making it to the restroom. She isn't wearing a pad at night because of persistent oozing blood per rectum. She reports she is having very painful bowel movements and has been trying laxatives but still has firm stool and difficulty passing stool. She reports symptoms lasted for the past 3-4 days intermittently. She does have a pacemaker. 12-lead EKG was obtained showing 100% paced rhythm at 60 bpm with left axis deviation and a wide QRS complexes. Temp is 36.3 Celsius. Pulse 71. Respirations 17. Blood pressure low at 80/63. Pulse ox 97%. Anal: WBC is elevated at 14.03. Hemoglobin high at 17.9. Hematocrit high at 50.9. She is normocytic. Her cigarette 185,000. Neutrophils elevated at 84%. There is no bandemia. PT is 12.5. INR 1.15. APTT is 27. Sodium is quite low at 128. Potassium low at 2.8. Chloride low at 87. Anion gap was high at 17.8. BUN is very high at 133. Creatinine is 2.3. EGFR is 21. Glucose is high at 169. Calcium high at 12.4. Magnesium high at 3.7. Bilirubin 0.8. AST is 34, ALT 35 , alkaline phosphatase 79. Troponin is elevated 0.104. CRP is high at 2.3. Protein is high at 8.8. Albumin 4.2. Elevated at 5776. She is a positive. She is placed on 2 L/m of oxygen bring her sats up to 96-97%. 1 view of the abdomen was obtained and interpreted by Dr. Ross as showing nothing acute. There are multiple incidental findings including Calcifications are seen within the upper right abdomen most likely due to calcified gallstones. Multiple renal calculi are also seen within both kidneys. Bowel gas pattern is normal. Chest x-rays obtained and shows stable findings with nothing acute. ED provider performs rigid sigmoidoscopy advancing sigmoidoscope as high as 15 cm. He was unable see anything but blood above this. She does have some internal and external hemorrhoids but no active bleeding is present. Blood is coming from the GI tract. H. pylori is obtained and is negative. She started on IV fluids and given K riders to help increase her potassium. She has been taking [place] 5 mg twice a day however due to her renal function she should probably be on 2.5 mg twice a day. Heris listed as extremely guarded. She carries a history of diastolic heart failure, HLD, hypertension, pacemaker placement, shortness of breath on exertion, renal disease, hypothyroidism osteoporosis, renal stones, Raynauds syndrome. She is a DNR/DNI. Her PCP is Dr. Mcneal. Diagnosis: Stroke: No - Discharge Data Discharge Date: 07/12/18 (Admit date: 07/07/18) Discharge Disposition: Home, Self-Care 01 Condition: Good - Discharge Diagnosis/Problem(s) (1) Chronic renal insufficiency, stage IV (severe) SNOMED Code(s): 43331154 ICD Code: N18.4 - CHRONIC KIDNEY DISEASE, STAGE 4 (SEVERE) Status: Resolved Priority: High Current Visit: Yes (2) Congestive heart failure SNOMED Code(s): 71419031 ICD Code: I50.9 - HEART FAILURE, UNSPECIFIED Status: Chronic Priority: Medium Current Visit: Yes Qualifiers: Heart failure type: diastolic Heart failure chronicity: chronic Qualified Code(s): I50.32 - Chronic diastolic (congestive) heart failure (3) Hypermagnesemia SNOMED Code(s): 20810347 ICD Code: E83.41 - HYPERMAGNESEMIA Status: Resolved Priority: Medium Current Visit: Yes (4) Hypokalemia SNOMED Code(s): 34478296 ICD Code: E87.6 - HYPOKALEMIA Status: Resolved Priority: High Current Visit: Yes (5) Hyponatremia SNOMED Code(s): 53240960 ICD Code: E87.1 - HYPO-OSMOLALITY AND HYPONATREMIA Status: Resolved Priority: High Current Visit: Yes (6) Upper gastrointestinal hemorrhage SNOMED Code(s): 51056323 ICD Code: K92.2 - GASTROINTESTINAL HEMORRHAGE, UNSPECIFIED Status: Resolved Priority: High Current Visit: Yes (7) Volume depletion, gastrointestinal loss SNOMED Code(s): 10262176 ICD Code: E86.9 - VOLUME DEPLETION, UNSPECIFIED Status: Resolved Priority : High Current Visit: Yes (8) Elevated troponin SNOMED Code(s): 046092554, 193004033, 902505126 ICD Code: R74.8 - ABNORMAL LEVELS OF OTHER SERUM ENZYMES Status: Acute Priority: High Current Visit: Yes - Patient Summary/Data Operative Procedure(s) Performed: colonoscopy to cecum with biopsy Consults: Consultations 07/07/18 22:15 Consult to Case Management/Mold Yarn Supervisor [CONS] Routine Consult to Global Compensation Manager [CONS] Routine Consult to Physician [CONS] Routine Consult to Spiritual Care [CONS] Routine OT Evaluation and Treatment [CONS] Routine PT Evaluation and Treatment [CONS] Routine Labs Pending at D/C: None Recommended Follow-up Testing/Procedures: Follow-up with PCP within 7-10 days of discharge, sooner if needed. Hospital Course: I/P: Acute: GI Bleed -Reports bleeding per rectum for past 3-4 days along with constipation -Hx/ of hemorrhoids but unsure what type; on eliquis daily for A-fib -Has to wear pad at night due to oozing of blood from rectum -Abdominal X-ray in ED shows increased colonic stools -Sigmoidoscopy performed in ED: * Advanced to 15cm * Could see nothing but blood * Internal and external hemorrhoids noted with no active bleeding evident -Hgb 17.9-->16.5-->14.3-->13.4-->13.1-->12.4 -Hct 50.9-->47.8-->43.4-->41.7-->40.5-->41.7 -PT 12.5; INR 1.15; APTT 27 -NPO overnight -Lactulose/bisacodyl suppository starting in AM until BM -Hold Eliquis -Reports last colonoscopy was a long time ago -Dr. Burleson, general surgery consult -Continue to hold Eliquis -Advance diet to clear liquids for now -NPO after midnight on Wednesday07/11/18 -Bowel prep Wednesday07/10/18 -Endoscopy Wednesday07/11/18 -Diet advanced without complication Inactive: Elevated troponin, trending down -Troponin 0.104-->0.131-->0.100 -CKMB 7.5-->7.9 -12-lead EKG shows 100% ventricular paced rhythm -Significant cardiac history including diastolic HF, HTN, HLD, CAD, A-fib on eliquis, Pacemaker -Likely troponin leak from chronic heart issues -Trend troponins/CKMB -BNP 5776 -->4070 Resolved: Hyponatremia -Reports she has not been eating or drinking much with dificulty caring for herself -Sodium 128-->132-->139-->143-->147 -IV fluids as ordered -Monitor S/P Hypokalemia -2/2 inadequate intake -Potassium 2.8-->3.4-->3.2-->2.8-->3.3-->3.5 -Supplement -Pharmacy to monitor and supplement Kidney failure -Acute on chronic -Last visit of 11/2016 showed creatinine of 1.0 and eGFR of 55 -Unsure of recent baseline -BUN 133-->128-->83-->34-->18 -Creatinine 2.3-->2.1-->1.5-->1.0-->0.9 -eGFR 21-->23-->34-->55--> greater than 60 -Will likely need eliquis decreased from 5mg to 2.5 mg on discharge -IV fluids as ordered - caution with worsening heart failure Chronic: Diastolic HF HLD HTN Pacemaker Renal disease Hypothyroidism Hx/o A-fib on eliquis Osteoporosis Renal stones Depression Raynauds syndrome Plan: Admit to medical floor on telemetry Home medications as ordered Other orders as indicated above PT/OT CM/SW - reports difficulty managing at home Spiritual care consult Global Compensation Manager consult Routine AM labs DVT prophylaxis: SCDs - Hold home eliquis due to GI bleed Code status: DNR/DNI; PCP: Dr. Mcneal DC ~48 hours, GI work up/diagnostic procedure on 07/11. LOS>96 hours GI bleed evaluation. She was brought in to the floor from the ED due to a GI bleed and multiple electrolyte abnormalities. Her port that she has been quite constipated for some time and reported that she had been bleeding quite significantly for several days. She is on chronic eliquis for atrial fibrillation and this was held. She did receive rather aggressive fluid hydration as her creatinine was very high at 2.3 with a GFR of 21. She responded well to this and had a creatinine of 0.8 with a GFR greater than 60 prior to discharge. There was concern over weight gain however the patient was off IV fluids for several days prior to discharge. Her blood pressure remained on the low end of normal to slightly low. She denied any dyspnea while lying flat and was noted to have no edema, cough, or need for oxygen. Lung sounds remained clear. She denied any respiratory distress or difficulty breathing with the exception of ambulating. BNP did actually trend down. She did state that she hasn't had dyspnea on a surgeon for quite some time. She did undergo a colonoscopy with Dr. Burleson who noted diverticula and no signs of active bleeding. She did have some internal hemorrhoids and irritation of her rectum consistent with proctitis. Constipation did resolve with a very large BM per patient reports, this was after beginning colonoscopy cleansing and clear liquid diet. We were able to advance her diet without any difficulty. She did continue working with PT and OT who recommended her using a frontwheel walker but no other services. While here her troponins were noted to be elevated however this did trend downward. It is thought this is likely from her chronic heart issues. Discussed discharge medications with Dr. Hood as patient has been somewhat hypotensive while here even with aggressive fluid hydration. Decision was made to hold her metolazone and Lasix as she has not received these while here. She was told to take one 40 mg Lasix tablet if she notices a blood pressure over 130/80 or a 5 pound weight gain. We discussed how she will likely need her medications adjusted by her primary care provider in the near future depending on how she does. She was instructed to weigh yourself daily and record this weight, bringing this with to all medical appointments. She was also instructed to take her blood pressure daily recording this and bring this with to medical appointments as well. Electrolytes were supplemented. She was instructed to discontinue her Lasix, metolazone, and eliquis at discharge. She was told her primary care provider will likely address restarting Eliquis in the future. She is instructed to follow-up with her primary care provider within 7-10 days of discharge, sooner if needed. She should also return to the emergency room or contact her primary care provider should symptoms return or worsen. She'll be discharged home today. - Patient Instructions Diet: Heart Healthy Diet Activity: As Tolerated Showering/Bathing: May Shower Notify Provider of: Fever, Increased Pain, Nausea and/or Vomiting - Discharge Plan *PRESCRIPTION DRUG MONITORING PROGRAM REVIEWED*: Not Applicable *COPY OF PRESCRIPTION DRUG MONITORING REPORT IN PATIENT SETH: Not Applicable Prescriptions/Med Rec: Furosemide [Lasix] 40 mg PO ASDIRECTED #1 tablet Home Medications: Home Meds Atenolol 50 mg PO DAILY 07/30/13 [History] Calcium Carbonate/Vitamin D3 [Caltrate 600 Plus D3 Tablet] 1 each PO BID [History] Folic Acid 0.5 mg PO DAILY 07/30/13 [History] Levothyroxine [Synthroid] 50 mcg PO ASDIRECTED 07/30/13 [History] Levothyroxine [Synthroid] 100 mcg PO ASDIRECTED 07/30/13 [History] Multivitamin [Multivitamins] 1 each PO DAILY 07/30/13 [History] Omeprazole [Prilosec] 20 mg PO DAILY 07/30/13 [History] Potassium Chloride [Klor-Con 10] 20 meq PO QAM 07/30/13 [History] Propylene Glycol/Peg 400 [Systane Liquid Gel Eye Drops] 1 drop EYEBOTH DAILY PRN 07/30/13 [History] Acetaminophen [Tylenol Arthritis Pain] 650 mg PO Q8H PRN 07/07/18 [History] Cyanocobalamin (Vitamin B-12) [B-12] 1,000 mcg PO DAILY 07/07/18 [History] Diclofenac Sodium [Voltaren 1% Gel] 2 gm TOP BID PRN 07/07/18 [History] Diltiazem [Cardizem CD] 120 mg PO DAILY 07/07/18 [History] Docusate Sodium 200 mg PO DAILY 07/07/18 [History] Fluticasone Propionate [Flonase Allergy Relief] 1 spray CATHY BID 07/07/18 [ History] Loratadine 10 mg PO DAILY 07/07/18 [History] Melatonin 5 mg PO BEDTIME 07/07/18 [History] Polyethylene Glycol [Polyox Wsr-301] 17 g PO Q72H 07/07/18 [History] Rosuvastatin Calcium 20 mg PO DAILY 07/07/18 [History] Sertraline [Zoloft] 75 mg PO QPM 07/07/18 [History] guaiFENesin [Mucinex] 1,200 mg PO BID 07/07/18 [History] Potassium Chloride [K-Tab ER] 10 meq PO QPM 07/08/18 [History] Furosemide [Lasix] 40 mg PO ASDIRECTED #1 tablet 07/12/18 [Rx] Oxygen Therapy Mode: Room Air Patient Handouts: Gastrointestinal Bleeding, [id number], Heart Failure, Easy- to-Read Forms: ED Department Discharge Referrals: Luna Mcneal MD [Primary Care Provider] - - Discharge Summary/Plan Comment DC Time >30 min.: Yes (45 minutes ) - General Info Date of Service: 07/12/18 Admission Dx/Problem (Free Text: Admission Diagnosis/Problem Admission Diagnosis/Problem Gastrointestinal hemorrhage Subjective Update: In to see Santos. We discussed discharge plan and concerns over her blood pressure and weight gain. He also discussed her labs. No other patient nursing concerns. We will discharge today. Functional Status: Reports: Pain Controlled, Tolerating Diet, Ambulating, Urinating. Denies: New Symptoms - Review of Systems General: Reports: No Symptoms. Denies: Fever, Weakness, Fatigue, Malaise, Chills HEENT: Reports: No Symptoms. Denies: Headaches, Sore Throat Pulmonary: Reports: No Symptoms. Denies: Shortness of Breath, Pleuritic Chest Pain, Cough, Sputum, Wheezing Cardiovascular: Reports: No Symptoms. Denies: Chest Pain, Palpitations, Dyspnea on Exertion, Edema Gastrointestinal: Reports: No Symptoms. Denies: Abdominal Pain, Constipation, Diarrhea, Nausea, Vomiting Genitourinary: Reports: No Symptoms. Denies: Pain Musculoskeletal: Reports: No Symptoms Skin: Reports: No Symptoms. Denies: Cyanosis Neurological: Reports: No Symptoms. Denies: Confusion Psychiatric: Reports: No Symptoms - Patient Data Vitals - Most Recent: Last Vital Signs Temp 97.9 F 07/12/18 08:24 Pulse 60 04/16/19 08:24 Resp 16 07/12/18 08:24 BP 103/63 07/12/18 08:24 Pulse Ox 97 07/12/18 08:24 Weight - Most Recent: 185 lb I&O - Last 24 hours: Intake & Output 07/11/18 07/12/18 07/12/18 22:59 06:59 14:59 Intake Total 960 1200 Balance 960 1200 Lab Results - Last 24 hrs: Laboratory Results - last 24 hr 07/12/18 07/12/18 Range/Units 06:30 06:30 WBC 5.06 (3.98-10.04) K/mm3 RBC 4.06 (3.98-5.22) M/mm3 Hgb 12.4 (11.2-15.7) gm/L Hct 39.2 (34.1-44.9) % MCV 96.6 H (79.4-94.8) fl MCH 30.5 (25.6-32.2) pg MCHC 31.6 L (32.2-35.5) g/dl RDW Std Deviation 54.2 H (36.4-46.3) fL Plt Count 108 L (182-369) K/mm3 MPV 11.2 (9.4-12.3) fl Neut % (Auto) 64.0 (34.0-71.1) % Lymph % (Auto) 21.1 (19.3-51.7) % [place] % (Auto) 11.9 (4.7-12.5) % Eos % (Auto) 2.8 (0.7-5.8) Baso % (Auto) 0.2 (0.1-1.2) % Neut # (Auto) 3.24 (1.56-6.13) K/mm3 Lymph # (Auto) 1.07 L (1.18-3.74) K/mm3 [place] # (Auto) 0.60 H (0.24-0.36) K/mm3 Eos # (Auto) 0.14 (0.04-0.36) K/mm3 Baso # (Auto) 0.01 (0.01-0.08) K/mm3 Sodium 143 (136-145) mEq/L Potassium 4.5 (3.5-5.1) mEq/L Chloride 112 H (98-107) mEq/L Carbon Dioxide 26 (21-32) mEq/L Anion Gap 9.5 (5-15) BUN 17 (7-18) mg/dL Creatinine 0.8 (0.55-1.02) mg/dL Est Cr Clr Drug Dosing 48.02 mL/min Estimated GFR (MDRD) > 60 (>60) mL/min BUN/Creatinine Ratio 21.3 H (14-18) Glucose 80 L (83-115) mg/dL Calcium 8.5 (8.5-10.1) mg/dL Magnesium 1.8 (1.8-2.4) mg/dl Med Orders - Current: Current Medications Acetaminophen (Tylenol) 650 mg PO Q4H PRN PRN Reason: Pain (Mild 1-3)/fever Hydrocodone Bitart/Acetaminophen (Royal 325-5 Mg) 1 tab PO Q4H PRN PRN Reason: Pain (moderate 4-6) Albuterol/Ipratropium (Duoneb 3.0-0.5 Mg/3 Ml) 3 ml NEB Q4H PRN PRN Reason: Shortness Of Breath/wheezing Artificial Tears (Refresh Liquigel 1%) 0 ml EYEBOTH DAILY PRN PRN Reason: Dry Eyes Atenolol (Tenormin) 50 mg PO DAILY [facility] Last Admin: 07/11/18 09:03 Dose: 50 mg Calcium Carbonate (Calcium Carbonate/Vitamin D 600 Mg-200 Unit) 1 tab PO BIDMEALS [facility] Last Admin: 07/12/18 06:22 Dose: 1 tab Cyanocobalamin (Vitamin B12) 1,000 mcg PO DAILY [facility] Last Admin: 07/11/18 09:26 Dose: Not Given Diclofenac Sodium (Voltaren 1% Gel) 0 gm TOP BID [facility] Last Admin: 07/11/18 21:24 Dose: Not Given Diltiazem HCl (Cardizem Cd) 120 mg PO DAILY [facility] Last Admin: 07/11/18 09:04 Dose: 120 mg Flunisolide (Nasalide Nasal [place]) 0 ml CATHY BID [facility] Last Admin: 07/11/18 21:23 Dose: 2 sprays Folic Acid (Folic Acid) 0.5 mg PO DAILY [facility] Last Admin: 07/11/18 09:23 Dose: Not Given Guaifenesin (Mucinex) 1,200 mg PO BID [facility] Last Admin: 07/11/18 21:23 Dose: 1,200 mg Hydralazine HCl (Apresoline) 10 mg IVPUSH Q4H PRN PRN Reason: Hypertension Hydromorphone HCl (Dilaudid) 0.25 mg IVPUSH Q2H PRN PRN Reason: Pain (severe 7-10) Promethazine HCl 6.25 mg/ (Sodium Chloride) 50.25 mls @ 100 mls/hr IV Q6H PRN PRN Reason: Nausea/Vomiting Levothyroxine Sodium (Synthroid) 50 mcg PO SuMoWeThFrSa@0600 [facility] Last Admin: 07/11/18 06:36 Dose: Not Given Levothyroxine Sodium (Synthroid) 100 mcg PO Tu@0600 [facility] Last Admin: 07/12/18 06:22 Dose: 100 mcg Loratadine (Claritin) 10 mg PO Q24H [facility] Lorazepam (Ativan) 0.5 mg IV Q6H PRN PRN Reason: Anxiety Melatonin (Melatonin) 6 mg PO BEDTIME [facility] Last Admin: 07/11/18 21:23 Dose: 6 mg Metoprolol Tartrate (Lopressor) 5 mg IVPUSH Q4H PRN PRN Reason: Tachycardia Multivitamins (Thera) 1 each PO DAILY [facility] Last Admin: 07/11/18 09:26 Dose: Not Given Ondansetron HCl (Zofran) 4 mg IV Q6H PRN PRN Reason: Nausea/Vomiting Pantoprazole Sodium (Protonix) 40 mg PO ACBREAKFAST [facility] Last Admin: 07/12/18 06:22 Dose: 40 mg Polyethylene Glycol (Miralax) 17 gm PO Q72H [facility] Last Admin: 07/10/18 21:01 Dose: Not Given Rosuvastatin Calcium (Crestor) 20 mg PO DAILY [facility] Last Admin: 07/11/18 09:22 Dose: Not Given Sertraline HCl (Zoloft) 75 mg PO DAILY [facility] Last Admin: 07/11/18 09:26 Dose: Not Given Sodium Chloride (Saline Flush) 10 ml FLUSH ASDIRECTED PRN PRN Reason: Keep Vein Open Last Admin: 07/07/18 17:33 Dose: 10 ml Temazepam (Restoril) 15 mg PO BEDTIME PRN PRN Reason: Sleep Last Admin: 07/11/18 22:34 Dose: 15 mg Discontinued Medications Bisacodyl (Dulcolax) 10 mg RECTAL BID [facility] Stop: 07/08/18 09:01 Last Admin: 07/08/18 22:21 Dose: 10 mg Potassium Chloride 10 meq/ (Premix) 100 mls @ 100 mls/hr IV ONETIME ONE Stop: 07/07/18 19:43 Last Admin: 07/07/18 19:09 Dose: 100 mls/hr Sodium Chloride (Normal Saline) 1,000 mls @ 50 mls/hr IV ASDIRECTED [facility] Last Admin: 07/07/18 19:09 Dose: 50 mls/hr Sodium Chloride (Normal Saline) 1,000 mls @ 125 mls/hr IV ASDIRECTED [facility] Last Admin: 07/10/18 04:43 Dose: 125 mls/hr Lactulose (Cephulac) 20 gm PO Q6H [facility] Last Admin: 07/09/18 18:56 Dose: 20 gm Levothyroxine Sodium (Levothyroxine) 25 mcg PO SuMoWeThFrSa@0600 [facility] Levothyroxine Sodium (Synthroid) 50 mcg PO Tu@0600 [facility] Lidocaine HCl (Xylocaine 2% Jelly) 10 ml MUCMEM ONETIME ONE Stop: 07/07/18 17:59 Last Admin: 07/07/18 18:05 Dose: 10 ml Loratadine (Claritin) 10 mg PO DAILY [facility] Last Admin: 07/08/18 09:16 Dose: 10 mg Loratadine (Claritin) 10 mg PO Q48H [facility] Last Admin: 07/10/18 12:01 Dose: 10 mg Magnesium Sulfate (Pharmacy To Dose - Magnesium Replacement) 0 dose .XX ASDIRECTED PRN PRN Reason: RX TO WATCH MAG LEVELS Metoclopramide HCl (Reglan) 5 mg IVPUSH TID@0700,1400,2100 [facility] Stop: 07/08/18 21:01 Last Admin: 07/08/18 22:24 Dose: 5 mg Non-Formulary Medication (Acetaminophen) 650 mg PO Q8H PRN PRN Reason: Pain Polyethylene Glycol (Miralax) 17 gm PO ONETIME ONE Stop: 07/08/18 00:16 Last Admin: 07/08/18 00:15 Dose: 17 gm Polyethylene Glycol/Electrolytes (Golytely) 4,000 ml PO ONETIME ONE Stop: 07/10/18 17:01 Last Admin: 07/10/18 17:49 Dose: 4 liter Potassium Chloride (Klor-Con 10) 20 meq PO BID [facility] Potassium Chloride (Pharmacy To Dose - Potassium Replacement) 0 dose .XX ASDIRECTED PRN PRN Reason: RX TO WATCH K LEVELS Potassium Chloride (Klor-Con M20) 60 meq PO ONETIME ONE Stop: 07/08/18 00:16 Last Admin: 07/08/18 00:12 Dose: 60 meq Potassium Chloride (Klor-Con M20) 40 meq PO ONETIME ONE Stop: 07/08/18 09:31 Last Admin: 07/08/18 09:40 Dose: 40 meq Potassium Chloride (Klor-Con M20) 40 meq PO BID [facility] Stop: 07/11/18 21:01 Last Admin: 07/11/18 09:24 Dose: Not Given Potassium Chloride (Klor-Con M20) 40 meq PO BID [facility] Stop: 07/11/18 21:01 Last Admin: 07/11/18 21:22 Dose: 40 meq Propofol (Diprivan 20 Ml) Confirm Administered Dose 200 mg .ROUTE .STK-MED ONE Stop: 07/11/18 09:41 Propofol (Diprivan 20 Ml) Confirm Administered Dose 200 mg .ROUTE .STK-MED ONE Stop: 07/11/18 09:57 - Exam Quality Assessment: Reports: DVT Prophylaxis General: Reports: Alert, Oriented, Cooperative, No Acute Distress HEENT: Reports: Pupils Equal, Pupils Reactive, EOMI, Mucous Membr. Moist/[place] Neck: Reports: Supple, Trachea Midline Lungs: Reports: Clear to Auscultation, Normal Respiratory Effort Cardiovascular: Reports: Irregular Rhythm GI/Abdominal Exam: Normal Bowel Sounds, Soft, Non-Tender, No Organomegaly, No Distention (Female) Exam: Deferred Rectal (Female) Exam: Deferred Back Exam: Reports: Normal Inspection, Full Range of Motion Extremities: Normal Inspection, Normal Range of Motion, Non-Tender, No Pedal Edema, Normal Capillary Refill Skin: Reports: Warm, Dry, Intact Neurological: Reports: No New Focal Deficit Psy/Mental Status: Reports: Alert, Normal Affect, Normal Mood
[2018-07-12] MEDS ORDERED: Loratadine 10 MG Tab PO SCH (09:00)
[2018-07-12] MEDS: Folic Acid 1 MG Tab PO SCH (09:39)
[2018-07-12] MEDS ORDERED: Furosemide 40 MG/4 ML VIAL IVPUSH ONE (09:40)
[2018-07-12] MEDS: Multivitamins,Therapeutic Tab PO SCH (09:41)
[2018-07-12] MEDS: Rosuvastatin 10 MG Tab PO SCH (09:42)
[2018-07-12] MEDS: Sertraline 50 MG Tab PO SCH (09:43)
[2018-07-12] MEDS: guaiFENesin 600 MG Tab.ER PO SCH (09:44)
[2018-07-12] MEDS: Cyanocobalamin (Vitamin B12) 1,000 MCG Tab PO SCH (09:45)
[2018-07-12] MEDS: Diclofenac Sodium 1% Gel 100 GM Tube TOP SCH (09:50)
[2018-07-12] MEDS: Diltiazem 120 MG Cap.CD PO SCH (09:55)
[2018-07-12] MEDS: Atenolol 50 MG Tab PO SCH (09:56)
[2018-07-12 16:48] VITALS: BP 123/89
== END 2018-07-12 20:02 | disposition home or self-care (01) | DRG 378 ==
LOC: JD.ED 16:36 → SUPCPDRO 16:36 → JD.MS 19:16
PROVIDERS: ADMIT Internal Medicine; ATTEND Internal Medicine
PROC: 0DJD8ZZ Inspection of Lower Intestinal Tract, Via Natural or Artificial Opening Endoscopic (ICD-10-PCS; principal; 2018-07-07)
PROC: 0DBP8ZX Excision of Rectum, Via Natural or Artificial Opening Endoscopic, Diagnostic (ICD-10-PCS; 2018-07-11)
DX: K62.5 Hemorrhage of anus and rectum (principal); K92.2 Gastrointestinal hemorrhage, unspecified; I13.0 Hypertensive heart and chronic kidney disease with heart failure and stage 1 through stage 4 chronic kidney disease, or unspecified chronic kidney disease; N18.4 Chronic kidney disease, stage 4 (severe); E87.1 Hypo-osmolality and hyponatremia; I50.33 Acute on chronic diastolic (congestive) heart failure; I42.9 Cardiomyopathy, unspecified; N17.9 Acute kidney failure, unspecified; I50.32 Chronic diastolic (congestive) heart failure; K62.89 Other specified diseases of anus and rectum; K55.20 Angiodysplasia of colon without hemorrhage; R74.8 Abnormal levels of other serum enzymes; K57.30 Diverticulosis of large intestine without perforation or abscess without bleeding; E83.41 Hypermagnesemia; E86.9 Volume depletion, unspecified; I48.2 Chronic atrial fibrillation; E78.5 Hyperlipidemia, unspecified; I25.10 Atherosclerotic heart disease of native coronary artery without angina pectoris; M81.0 Age-related osteoporosis without current pathological fracture; I48.0 Paroxysmal atrial fibrillation; E87.6 Hypokalemia; E78.00 Pure hypercholesterolemia, unspecified; E03.9 Hypothyroidism, unspecified; K59.00 Constipation, unspecified; N39.46 Mixed incontinence; M15.9 Polyosteoarthritis, unspecified; F41.9 Anxiety disorder, unspecified; R53.1 Weakness; R42 Dizziness and giddiness; R06.00 Dyspnea, unspecified; R35.0 Frequency of micturition; R06.02 Shortness of breath; R53.83 Other fatigue; R10.9 Unspecified abdominal pain; R26.2 Difficulty in walking, not elsewhere classified; R63.0 Anorexia; R53.81 Other malaise; I73.00 Raynaud's syndrome without gangrene; F32.9 Major depressive disorder, single episode, unspecified; K64.8 Other hemorrhoids; E66.9 Obesity, unspecified; K64.4 Residual hemorrhoidal skin tags; Z96.612 Presence of left artificial shoulder joint; Z95.0 Presence of cardiac pacemaker; Z96.611 Presence of right artificial shoulder joint; Z96.643 Presence of artificial hip joint, bilateral; Z66 Do not resuscitate; Z79.01 Long term (current) use of anticoagulants; Z79.82 Long term (current) use of aspirin; Z88.1 Allergy status to other antibiotic agents; Z88.8 Allergy status to other drugs, medicaments and biological substances; Z79.890 Hormone replacement therapy; Z79.899 Other long term (current) drug therapy; Z87.442 Personal history of urinary calculi; Z87.891 Personal history of nicotine dependence; Z68.31 Body mass index [BMI] 31.0-31.9, adult
CPT/HCPCS: 36415; 45330; 71045; 74018; 80053; 83735; 83880; 84484; 85007; 85027; 85610; 85730; 86140; 86677; 86850; 86900; 86901; 93005; 96365; 99285; J3480; J7040; 00811; 45300; 80048; 81001; 82553; 84132; 85025; 88305; 93010; 94760; 97116-GP; 97161-GP; 97162-GP; 97166-GO; 97535-GO; A9270-GY; J2704; J2765

== ENCOUNTER 2019-05-18 16:04 | Emergency (ER) | payer MEDICARE, BC ==
[2019-05-18 16:19] VITALS: BP 133/81; PULSE 84
[2019-05-18] MEDS ORDERED: Ondansetron 4 MG/2 ML SDV IVPUSH ONE (16:54)
[2019-05-18] MEDS ORDERED: Dextrose 5%-0.9% NaCl 1,000 ML IV SCH (17:00)
--- NOTE | 2019-05-18 17:00 | EDM.PDOC ---
ED HPI GENERAL MEDICAL PROBLEM - General Chief Complaint: Fever Stated Complaint: FEVER Time Seen by Provider: 05/18/19 16:54 Source of Information: Reports: Patient History Limitations: Reports: No Limitations - History of Present Illness INITIAL COMMENTS - FREE TEXT/NARRATIVE: 73-year-old female presents to the ED with her son. She lives alone. He looks in on her almost on a daily basis. She reports that she has been ill since May 13 with fever chills and Reiger's on an intermittent basis. She last had chills and Reiger's early this morning. She has loss of appetite but is been to forcing herself to drink some boost every day. She has a history of recurrent urinary tract infections due to development of a neurogenic bladder. Problems with her bladder developed back in January when she had greater than 700 mils post residual volume. She ended up with a Jeter catheter for a boat 2-1/2 to 3 weeks before she developed a catheter acquired infection and end up in the hospital. Dr. Galeana--her urologist in [place] and he placed her on Flomax 0.4 mg once daily. She still aware that her bladder is not emptying completely. She wears a pad because she dribbles urine a good portion of the time. She also reports bowel function is changed and she has become much more constipated. No brief previous bladder surgery or A&P repair. Has had no previous abdominal surgery but does have a prominent umbilical hernia which bothers her intermittently. He states the urine has become more odiferous and cloudy over the last several days. She denies cough or sputum production. No headache. Mild associated nausea. Bowel movement perhaps 3 days ago. No blood per rectum. Onset: Sudden Onset Date: 05/13/19 (Fever and chills on Wednesday) Duration: Day(s):, Getting Worse, Waxing/Waning Location: Reports: Generalized (Lysed chills to the point of teeth chattering or Reiger's. Associated intermittent nausea and diffuse intermittent lower abdominal pain. Feels more pressure in her abdomen than anything. Denies feeling bloated or distended.) Quality: Reports: Other (Ally sense of weakness with fever and chills) Severity: Moderate Improves with: Reports: None Worsens with: Reports: None Context: Reports: Other (Continuous occurrence of fever and chills x5 days). Denies: Activity, Exercise, Lifting, Sick Contact, Trauma Associated Symptoms: Reports: Fever/Chills (Reiger's.), Loss of Appetite, Malaise, Nausea/Vomiting, Weakness (Lysed weakness particularly took her 4 hours to get dressed today). Denies: Confusion, Chest Pain, Cough, cough w sputum, Diaphoresis, Headaches, Rash, Seizure (Without vomiting), Shortness of Breath, Syncope Treatments DITCH TENDER: Reports: Acetaminophen, Other (see below) (Not taking any of her normal meds today.) - Related Data Allergies Allergy/AdvReac Type Severity Reaction Status Date / Time ACEINHIBITORS Allergy Intermediate Edema Verified 05/18/19 16:19 [MELYSSA Inhibitors] hydrochlorothiazide Allergy Intermediate unknown Verified 05/18/19 16:19 tetracycline [Tetracycline] Allergy Intermediate Hives Verified 05/18/19 16:19 Home Meds: Home Meds Calcium Carbonate/Vitamin D3 [Caltrate 600 Plus D3 Tablet] 1 each PO BID [History] Folic Acid 0.5 mg PO DAILY 07/30/13 [History] Levothyroxine [Synthroid] 50 mcg PO ASDIRECTED 07/30/13 [History] Levothyroxine [Synthroid] 100 mcg PO ASDIRECTED 07/30/13 [History] Multivitamin [Multivitamins] 1 each PO DAILY 07/30/13 [History] Omeprazole [Prilosec] 20 mg PO DAILY 07/30/13 [History] Potassium Chloride [Klor-Con 10] 20 meq PO QAM 07/30/13 [History] Propylene Glycol/Peg 400 [Systane Liquid Gel Eye Drops] 1 drop EYEBOTH DAILY PRN 07/30/13 [History] atenoloL [Atenolol] 50 mg PO DAILY 07/30/13 [History] Acetaminophen [Tylenol Arthritis Pain] 650 mg PO Q8H PRN 07/07/18 [History] Cyanocobalamin (Vitamin B-12) [B-12] 1,000 mcg PO DAILY 07/07/18 [History] Diclofenac Sodium [Voltaren 1% Gel] 2 gm TOP BID PRN 07/07/18 [History] Diltiazem [Cardizem CD] 120 mg PO DAILY 07/07/18 [History] Docusate Sodium 200 mg PO DAILY 07/07/18 [History] Fluticasone Propionate [Flonase Allergy Relief] 1 spray CATHY BID 07/07/18 [ History] Loratadine 10 mg PO DAILY 07/07/18 [History] Melatonin 5 mg PO BEDTIME 07/07/18 [History] Polyethylene Glycol [Polyox Wsr-301] 17 g PO Q72H 07/07/18 [History] Rosuvastatin Calcium 20 mg PO DAILY 07/07/18 [History] Sertraline [Zoloft] 75 mg PO QPM 07/07/18 [History] guaiFENesin [Mucinex] 1,200 mg PO BID 07/07/18 [History] Potassium Chloride [K-Tab ER] 10 meq PO QPM 07/08/18 [History] Furosemide [Lasix] 40 mg PO ASDIRECTED #1 tablet 07/12/18 [Rx] Past Medical History HEENT History: Reports: Other (See Below) Other HEENT History: Pt wears glasses, cataaracts starting Cardiovascular History: Reports: Cardiomyopathy, Heart Failure, High Cholesterol , Hypertension, SD, Pacemaker (This due to tachybradycardia syndrome. Had it replaced due to bad wires on the initial pacemaker. She believes this 1 was placed in 2006), SOB on Exertion Respiratory History: Reports: SOB Gastrointestinal History: Reports: Hemorrhoids, Hiatal Hernia Genitourinary History: Reports: Renal Calculus, Renal Disease, UTI, Recurrent, Other (See Below) Other Genitourinary History: Bilat stones present in kidneys Musculoskeletal History: Reports: Arthritis, Back Pain, Chronic Psychiatric History: Reports: Anxiety, Depression Endocrine/Metabolic History: Reports: Hypothyroidism, Obesity/BMI 30+ Dermatologic History: Reports: Other (See Below) Other Dermatologic History: Severe dryness - Infectious Disease History Infectious Disease History: Reports: Chicken Pox, Measles - Past Surgical History Cardiovascular Surgical History: Reports: Other (See Below) Other Cardiovascular Surgeries/Procedures: Catheterized X2 Respiratory Surgical History: Reports: None GI Surgical History: Reports: Hernia Repair/Other Endocrine Surgical History: Reports: None Musculoskeletal Surgical History: Reports: Hip Replacement, Shoulder Surgery Other Musculoskeletal Surgeries/Procedures:: X 2 Hips, X2 shoulders Social & Family History - Family History Family Medical History: Noncontributory - Tobacco Use Smoking Status *Q: Former Smoker Used Tobacco, but Quit: Yes Month/Year Tobacco Last Used: 1994 - Caffeine Use Caffeine Use: Reports: Coffee Other Caffeine Use: Last use greater than 1 week, 6 cups per day and 1 can per day - Living Situation & Occupation Living situation: Reports: (Suddenly in February 2017.), Alone Occupation: Retired ED ROS GENERAL - Review of Systems Review Of Systems: See Below Constitutional: Reports: Fever, Chills, Malaise, Weakness, Fatigue, Decreased Appetite, Weight Loss, Other (Sachin Stanton's last time was early this morning.) HEENT: Reports: Glasses Respiratory: Reports: No Symptoms. Denies: Cough, Sputum, Hemoptysis Cardiovascular: Reports: Edema (He is edematous in her lower legs but feels that she is dehydrated.), Lightheadedness, Other (Pacemaker placed due to tachybradycardia syndrome x2. The first 1 was removed due to defective wires). Denies: Chest Pain, Blood Pressure Problem, Claudication, Dyspnea on Exertion , Orthopnea, Palpitations Endocrine: Reports: Fatigue GI/Abdominal: Reports: Abdominal Pain (Lower abdominal discomfort and occasional sharp pains), Decreased Appetite, Distension, Nausea. Denies: Difficulty Swallowing, Flatus, Hematemesis (Mildly bloated), Hematochezia, Melena, Stool Incontinence, Vomiting, Other : Reports: Frequency, Incontinence (Trips a good deal of urine and has to wear a pad at all times.), Urgency, Other (History of urinary retention due to developing neurogenic bladder.) Musculoskeletal: Reports: Back Pain (Back pain and knee pain), Joint Pain ( uses Voltaren gel. Knees and neck at times) Skin: Reports: No Symptoms Neurological: Reports: Paresthesia (Patient appreciates paresthesias biting pinching pain in both lower extremities down to her ankles at times. She feels completely numb in the perineum perianal tissues and sacral 1 to sacral for dermatomes. This is been gradually worsening over the last 2 months. She states she does not have any weakness in her legs and she can still walk okay. This is concerning as she is developed a neurogenic bladder. She is not had investigations to my knowledge of a potential spinal cord lesion or cauda equina syndrome.) Psychiatric: Reports: No Symptoms Hematologic/Lymphatic: Reports: No Symptoms Immunologic: Reports: No Symptoms ED EXAM, SEPSIS - Physical Exam Exam: See Below Exam Limited By: No Limitations General Appearance: Alert, WD/WN, Mild Distress, Other (She does feel warm palpation. Nurses recorded temperature 37.3 but she appears to be warmer than this. Heart rate is 84 and sinus respiratory is 20 with BP 133/81 pulse ox is 95% on room air.) Eye Exam: Bilateral Eye: Normal Inspection (No blepharal pallor or scleral icterus.) Throat/Mouth: Normal Teeth, Normal Oropharynx (Tongue is mildly dry and coated.) , Other Head: Atraumatic, Normocephalic Neck: Normal Inspection, Supple, Non-Tender, Full Range of Motion. No: Carotid Bruit, Lymphadenopathy (L), Lymphadenopathy (R) Respiratory/Chest: Lungs Clear (Mild tachypnea), Normal Breath Sounds, No Accessory Muscle Use, Respiratory Distress, Other (2 sats are only 95% on room air.) Cardiovascular: Normal Peripheral Pulses, Regular Rate, Rhythm, No Edema, No Gallop, No Murmur, No Rub Peripheral Pulses: 1+: Posterior Tibial (L), Posterior Tibial (R), Dorsalis Pedis (L), Dorsalis Pedis (R) GI/Abdominal Exam: Soft, No Organomegaly, Distended, Abnormal Bowel Sounds ( Sounds are slightly hyperactive throughout all ), Other (Very prominent umbilical hernia measuring 4.5 cm in diameter and erythematous in color. It is reducible and is mildly painful. I cannot identify a full urinary bladder she has tympany to percussion below the umbilicus.). No: Guarding (Distended and diffusely tympanitic to percussion.), Rigid, Rebound, Tender Back: Normal Inspection, Full Range of Motion. No: CVA Tenderness (L), CVA Tenderness (R) Extremities: Normal Inspection, Normal Range of Motion, Non-Tender, No Pedal Edema, Normal Capillary Refill Neurological: Alert, Oriented, CN II-XII Intact, Normal Cognition Psychiatric: Normal Affect, Normal Mood Skin: Warm, Dry, Intact, Normal Color, No Rash EKG INTERPRETATION EKG Date: 05/18/19 Time: 17:46 Rhythm: Other (100% ventricular paced rhythm at 60/min.) EKG Interpretation Comments: Percent ventricular paced rhythm. No further analysis attempted. Course - Vital Signs Last Recorded V/S: Last Vital Signs Temp 37.3 C 05/18/19 16:13 Pulse 84 05/18/19 16:13 Resp 20 05/18/19 16:13 BP 133/81 05/18/19 16:13 Pulse Ox 95 05/18/19 16:13 - Orders/Labs/Meds Orders: Active Orders 24 hr Category Date Time Status Bladder Scan [RC] ASDIRECTED Care 05/18/19 16:56 Active EKG Documentation Completion [RC] STAT Care 05/18/19 16:56 Active Jeter Catheter Insertion [Insert Urinary Catheter] [OM. Care 05/18/19 19:30 Ordered PC] Q24H Insert Jeter Catheter [Insert Urinary Catheter] [OM.PC] Care 05/18/19 18:10 Ordered Q24H Urinary Catheter Assessment [RC] ASDIRECTED Care 05/18/19 18:10 Active Urinary Catheter Assessment [RC] ASDIRECTED Care 05/18/19 19:24 Active Abdomen 1V Flat [CR] Stat Exams 05/18/19 17:01 Taken Chest 1V Frontal [CR] Stat Exams 05/18/19 16:55 Taken CULTURE BLOOD [BC] Stat Lab 05/18/19 17:30 Received CULTURE BLOOD [BC] Stat Lab 05/18/19 17:37 Received CULTURE URINE [RM] Stat Lab 05/18/19 18:15 Received Dextrose 5%-0.9% NaCl [Dextrose 5%-Normal Saline] 1,000 Med 05/18/19 17:00 Active ml IV ASDIRECTED Blood Culture x2 Reflex Set [OM.PC] Stat Oth 05/18/19 16:59 Ordered Medication Orders Dextrose/Sodium Chloride (Dextrose 5%-Normal Saline) 1,000 mls @ 500 mls/hr IV ASDIRECTED SHINE Last Admin: 05/18/19 19:52 Dose: 500 mls/hr Labs: Laboratory Tests 05/18/19 05/18/19 05/18/19 Range/Units 17:30 17:30 17:30 WBC 8.74 (3.98-10.04) K/mm3 RBC 4.13 (3.98-5.22) M/mm3 Hgb 13.3 (11.2-15.7) gm/dl Hct 42.0 (34.1-44.9) % MCV 101.7 H D (79.4-94.8) fl MCH 32.2 (25.6-32.2) pg MCHC 31.7 L (32.2-35.5) g/dl RDW Std Deviation 50.9 H (36.4-46.3) fL Plt Count 172 L (182-369) K/mm3 MPV 10.7 (9.4-12.3) fl Neutrophils % (Manual) 81 H (40-60) % Band Neutrophils % 1 (0-10) % Lymphocytes % (Manual) 8 L (20-40) % Atypical Lymphs % 0 % Monocytes % (Manual) 9 (2-10) % Eosinophils % (Manual) 0 L (0.7-5.8) % Basophils % (Manual) 1 (0.1-1.2) Toxic Granulation Few Platelet Estimate Adequate Anisocytosis 1+ slight Macrocytosis 1+ slight Ovalocytes 1+ slight RBC Morph Comment Not Reportable PT 10.9 (9.7-12.0) SECONDS INR 1.00 APTT 31 D (22-31) SECONDS Sodium 136 (136-145) mEq/L Potassium 4.0 (3.5-5.1) mEq/L Chloride 98 D (98-107) mEq/L Carbon Dioxide 25 (21-32) mEq/L Anion Gap 17.0 H (5-15) BUN 49 H D (7-18) mg/dL Creatinine 1.5 H (0.55-1.02) mg/dL Est Cr Clr Drug Dosing 25.21 mL/min Estimated GFR (MDRD) 34 (>60) mL/min BUN/Creatinine Ratio 32.7 H (14-18) Glucose 102 (83-115) mg/dL Lactic Acid (0.4-2.0) mmol/L Calcium 9.7 (8.5-10.1) mg/dL Magnesium 2.0 (1.8-2.4) mg/dl Total Bilirubin 0.4 (0.2-1.0) mg/dL AST 18 (15-37) U/L ALT 36 (14-59) U/L Alkaline Phosphatase 55 (46-116) U/L C-Reactive Protein 26.3 H* (<1.0) mg/dL Total Protein 7.6 (6.4-8.2) g/dl Albumin 3.3 L (3.4-5.0) g/dl Globulin 4.3 gm/dL Albumin/Globulin Ratio 0.8 L (1-2) Urine Color (Yellow) Urine Appearance (Clear) Urine pH (5.0-8.0) Ur Specific [place] (1.005-1.030) Urine Protein (Negative) Urine Glucose (UA) (Negative) Urine Ketones (Negative) Urine Occult Blood (Negative) Urine Nitrite (Negative) Urine Bilirubin (Negative) Urine Urobilinogen (0.2-1.0) Ur Leukocyte Esterase (Negative) Urine RBC (0-5) /hpf Urine WBC (0-5) /hpf Ur Squamous Epith Cells (0-5) /hpf Urine Bacteria (FEW) /hpf Urine Mucus (FEW) /hpf Digoxin (0.9-2.0) ng/mL 05/18/19 05/18/19 05/18/19 Range/Units 17:30 17:30 18:15 WBC (3.98-10.04) K/mm3 RBC (3.98-5.22) M/mm3 Hgb (11.2-15.7) gm/dl Hct (34.1-44.9) % MCV (79.4-94.8) fl MCH (25.6-32.2) pg MCHC (32.2-35.5) g/dl RDW Std Deviation (36.4-46.3) fL Plt Count (182-369) K/mm3 MPV (9.4-12.3) fl Neutrophils % (Manual) (40-60) % Band Neutrophils % (0-10) % Lymphocytes % (Manual) (20-40) % Atypical Lymphs % % Monocytes % (Manual) (2-10) % Eosinophils % (Manual) (0.7-5.8) % Basophils % (Manual) (0.1-1.2) Toxic Granulation Platelet Estimate Anisocytosis Macrocytosis Ovalocytes RBC Morph Comment PT (9.7-12.0) SECONDS INR APTT (22-31) SECONDS Sodium (136-145) mEq/L Potassium (3.5-5.1) mEq/L Chloride (98-107) mEq/L Carbon Dioxide (21-32) mEq/L Anion Gap (5-15) BUN (7-18) mg/dL Creatinine (0.55-1.02) mg/dL Est Cr Clr Drug Dosing mL/min Estimated GFR (MDRD) (>60) mL/min BUN/Creatinine Ratio (14-18) Glucose (83-115) mg/dL Lactic Acid 0.8 (0.4-2.0) mmol/L Calcium (8.5-10.1) mg/dL Magnesium (1.8-2.4) mg/dl Total Bilirubin (0.2-1.0) mg/dL AST (15-37) U/L ALT (14-59) U/L Alkaline Phosphatase (46-116) U/L C-Reactive Protein (<1.0) mg/dL Total Protein (6.4-8.2) g/dl Albumin (3.4-5.0) g/dl Globulin gm/dL Albumin/Globulin Ratio (1-2) Urine Color Yellow (Yellow) Urine Appearance Slt cloudy H (Clear) Urine pH 6.0 (5.0-8.0) Ur Specific [place] 1.015 (1.005-1.030) Urine Protein 1+ H (Negative) Urine Glucose (UA) Negative (Negative) Urine Ketones Negative (Negative) Urine Occult Blood 3+ H (Negative) Urine Nitrite Negative (Negative) Urine Bilirubin Negative (Negative) Urine Urobilinogen 0.2 (0.2-1.0) Ur Leukocyte Esterase 1+ H (Negative) Urine RBC 20-30 H (0-5) /hpf Urine WBC 10-20 H (0-5) /hpf Ur Squamous Epith Cells 0-5 (0-5) /hpf Urine Bacteria Many H (FEW) /hpf Urine Mucus Few (FEW) /hpf Digoxin 1.0 (0.9-2.0) ng/mL Meds: Medications Generic Name Dose Route Start Last Admin Trade Name Freq PRN Reason Stop Dose Admin Dextrose/Sodium Chloride 1,000 mls @ 500 mls/hr 05/18/19 17:00 05/18/19 19:52 Dextrose 5%-Normal Saline IV 500 mls/hr ASDIRECTED SHINE Administration Discontinued Medications Generic Name Dose Route Start Last Admin Trade Name Freq PRN Reason Stop Dose Admin Acetaminophen 650 mg 05/18/19 21:15 Tylenol PO 05/18/19 21:16 NOW ONE Ceftriaxone Sodium Confirm 05/18/19 19:43 05/18/19 19:48 Rocephin Administered 05/18/19 19:44 Not Given Dose 2 gm IV .STK-MED ONE Ceftriaxone Sodium 2 gm/ 100 mls @ 200 mls/hr 05/18/19 19:31 Sodium Chloride IV 05/18/19 20:00 ONETIME ONE Ceftriaxone Sodium 2 gm/ 100 mls @ 200 mls/hr 05/18/19 19:43 05/18/19 19:48 Sodium Chloride IV 05/18/19 20:12 200 mls/hr STAT ONE Administration Sodium Chloride Confirm 05/18/19 19:46 05/18/19 19:52 Normal Saline Administered 05/18/19 19:47 Not Given Dose 100 mls @ as directed .ROUTE .STK-MED ONE Ondansetron HCl 4 mg 05/18/19 16:54 05/18/19 17:45 Zofran IVPUSH 05/18/19 16:55 4 mg ONETIME ONE Administration - Radiology Interpretation Free Text/Narrative:: 73-year-old female presents to the ED with a history of fever chills and Reiger' s intermittently since last Wednesday, April 12. She has lost her appetite but is trying to take some boost on a daily basis. She cannot take any of her meds today. She states the urine has become cloudy and odiferous. She has a history of intermittent neurogenic bladder and urinary retention development since January last year. She did have a Jeter catheter for about 3 weeks but developed a secondary infection and some sepsis which required hospitalization in February. She is being followed by urologist Dr.Kolilat Sy. She has an appointment May 30. He placed her on Flomax 0.4 mg once daily in February. She has not been followed since and she does not believe she has had a urinary tract infection since February. She is having trouble with her bowels i.e. constipation. She is febrile on initial examination. No specific areas of infection are identified on examination. Strongly suspect urinary tract origin of infection. She does not have any significant costovertebral angle tenderness on exam. That she is experiencing Rigor's and chills indicating bacteremia. Plan she will have a septic work-up. She will have a post void bladder scan and a urine sample obtained by catheterization. - Re-Assessments/Exams Free Text/Narrative Re-Assessment/Exam: 05/18/19 18:20 PT is 10.9 with an INR of 1.0. PTT is 31. For what ever reason the rest of her labs are not yet available. Chest x-ray reveals lungs to be clear. She has bilateral replacements. Free Text/Narrative Re-Assessment/Exam: 05/18/19 18:36 White Count is found to be 8.74 with differential pending. Hemoglobin is 13.3 with a hematocrit of 42.0. MCV is 101.7. Platelet count is 172,000. PT is 10.9 with an INR of 1.0 PTT is 31. Sodium is 136 with a potassium of 4.0. Chloride is 98 with a bicarb of 25. Anion gap is mildly elevated at 17.0. BUN is elevated at 49 with a creatinine of 1.5. eGFR is down to 30 for a stage III chronic kidney disease. Glucose is 102 with a lactic acid of 0.8. Calcium is 9.7. Magnesium is 2.0. Liver function is normal . C-reactive protein is pending. Total protein is 7.6 with an albumin fraction of 3.3. Serum digoxin level is therapeutic at 1.0. Elevated renal function is worrisome for obstructive uropathy developing due to chronic neurogenic bladder. And she will have a Jeter catheter placed to decompress the urinary bladder and hopefully improve her renal function. She will be given Rocephin 2 g intravenously for suspect urinary tract infection with fever and chills 05/18/19 19:35 Hematology reveals white count of 8.74 with 81% neutrophils and 1 % band cells. Urinalysis obtained by catheterization shows it to be cloudy containing 1+ proteinuria 3+ occult blood and 1+ leukocyte esterase. There are 20-30 red blood cells per high-power field and 10-20 white blood cells per high- power field with many bacteria appreciated. Digoxin is therapeutic at 1.0 reactive protein is elevated at 26.3. Total protein is 7.6 with an albumin fraction of 3.3. 05/18/19 19:40: I have spoken with Dr. Nieto--on-call hospitalist at [facility] in [place] and she is accepted care of this patient. She will be admitted to the med surgery floor on telemetry. The plan will be to have CT of her abdomen and pelvis performed without contrast and also CT of her lumbar spine due to concerns of spinal cord compression causing neurogenic bladder and her perianal paresthesias particularly in S1-3 dermatomes. She also has some symptoms in her lower extremities in the L4 V nerve root distribution with pins- and-needles and numbness but no changes in her mobility. Tolerated the Rocephin intravenously without any issues. 05/18/19 21:40: CT of the abdomen has been performed without any contrast. Visualized portions of the heart appear to be somewhat enlarged. There is a moderate to large hiatal hernia appreciated. Visualized lung bases show nothing acute. Noncontrast appearance of the liver shows no focal abnormality. Spleen shows no discrete abnormality. Gallbladder contains a single calcified gallstone measuring 1.0 cm. No discrete adrenal nodules are seen. Clear shows no discrete abnormality. Small lymph node is noted within the upper right mediastinum measuring 1.4 cm in size. Multiple medullary calcifications are seen within both kidneys I counted at least 15 in the left and 12 on the right. Significant hydronephrosis of the right kidney which the radiologist omitted to state in his report. There is significant perinephric stranding on the right side. The left kidney is smaller in size than normal. And has minimal perinephric stranding. Paranephric stranding on the right side is partially due to obstructive uropathy and likely pyelonephritis. Umbilical hernia seen containing fat with a large opening into the abdominal wall. It is present clinically and is 6 to 7 cm in diameter. It is easily reducible clinically. Diverticuli are seen within the sigmoid colon with no evidence of diverticulitis. Artifact is noted from within the pelvis from bilateral hip prostheses. Appendix is felt to be visualized and normal in size. CT of the lumbar spine performed due to concerns of possible partial cauda equina syndrome that is occurred gradually with the patient developing a neurogenic bladder and paresthesias particularly and sacral 1-3 dermatomes and [id number] sensation down both lower extremities over the last 2 months. Findings are that of diffuse disc space narrowing and vacuum phenomena throughout the lumbar spine. Posterior disc space narrowing is seen at L3-L4 level. Old limbus type vertebra is noted within the anterior and superior endplate of L3. Spondylolisthesis is noted at L4-L5 level measuring about 7.7 mm which is due to severe degenerative apophyseal changes. Diffuse degenerative apophyseal changes also seen within other levels of the lumbar spine. No acute fractures are identified. Multiple levels of neural foraminal stenosis are appreciated. Central canal stenosis is noted at L4-L5 level. Slight deformity of the thecal sac noted at L2-3 level this is due to degenerative apophyseal change. No other levels of central canal stenosis are appreciated. Acute fractures are identified. The CT scans were to [facility] in [place] per PACS. And is to be transported to [facility] per [facility] which is a peripheral ambulance company that was kind enough to help us out with her hospital on diversion and all other ambulances in -service at present. 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 Patient has a neurogenic bladder which is caused a pyelonephritis with fever chills and Reiger's for 5 days. She has evidence of obstructive uropathy with decline in renal function. CT reveals significant pyelonephritis with perinephric stranding on the right side and moderate hydronephrosis. Less stranding appreciated on the left side. This is a combination of obstructive uropathy and pyelonephritis. She also mentions that she has paresthesias and numbness to her sacral 1 2 and 3 dermatomes gradually worsening over the last 2 to 3 months. He of her lumbar spine reveals advanced degenerative arthritic changes which are causing some degree of neural foraminal encroachment and central canal stenosis. She also has some mild paresthesias in both lower extremities. She has bilateral total hip prostheses. Quires urological consultation with possible need for a suprapubic catheter. She requires neurosurgical consultation in regards to possible cord compression causing neuro bladder and paresthesias as mentioned above Sepsis Event Note - Evaluation Sepsis Screening Result: No Definite Risk - Focused Exam Vital Signs: Vital Signs Temp Pulse Resp BP Pulse Ox 05/18/19 16:13 37.3 C 84 20 133/81 95 Date Exam was Performed: 05/18/19 Time Exam was Performed: 21:56 - My Orders Last 24 Hours: My Active Orders 05/18/19 16:55 Chest 1V Frontal [CR] Stat 05/18/19 16:56 Bladder Scan [RC] ASDIRECTED EKG Documentation Completion [RC] STAT 05/18/19 16:59 Blood Culture x2 Reflex Set [OM.PC] Stat 05/18/19 17:00 Dextrose 5%-0.9% NaCl [Dextrose 5%-Normal Saline] 1,000 ml IV ASDIRECTED 05/18/19 17:01 Abdomen 1V Flat [CR] Stat 05/18/19 17:30 CULTURE BLOOD [BC] Stat 05/18/19 17:37 CULTURE BLOOD [BC] Stat 05/18/19 18:10 Insert Jeter Catheter [Insert Urinary Catheter] [OM.PC] Q24H Urinary Catheter Assessment [RC] ASDIRECTED 05/18/19 18:15 CULTURE URINE [RM] Stat 05/18/19 19:24 Urinary Catheter Assessment [RC] ASDIRECTED 05/18/19 19:30 Jeter Catheter Insertion [Insert Urinary Catheter] [OM.PC] Q24H - Assessment/Plan Last 24 Hours: My Active Orders 05/18/19 16:55 Chest 1V Frontal [CR] Stat 05/18/19 16:56 Bladder Scan [RC] ASDIRECTED EKG Documentation Completion [RC] STAT 05/18/19 16:59 Blood Culture x2 Reflex Set [OM.PC] Stat 05/18/19 17:00 Dextrose 5%-0.9% NaCl [Dextrose 5%-Normal Saline] 1,000 ml IV ASDIRECTED 05/18/19 17:01 Abdomen 1V Flat [CR] Stat 05/18/19 17:30 CULTURE BLOOD [BC] Stat 05/18/19 17:37 CULTURE BLOOD [BC] Stat 05/18/19 18:10 Insert Jeter Catheter [Insert Urinary Catheter] [OM.PC] Q24H Urinary Catheter Assessment [RC] ASDIRECTED 05/18/19 18:15 CULTURE URINE [RM] Stat 05/18/19 19:24 Urinary Catheter Assessment [RC] ASDIRECTED 05/18/19 19:30 Jeter Catheter Insertion [Insert Urinary Catheter] [OM.PC] Q24H
[2019-05-18] MEDS ORDERED: cefTRIAXone 2 GM in Sodium Chloride 0.9% 100 ML IV ONE ×2 (19:31→19:43)
[2019-05-18] MEDS ORDERED: cefTRIAXone 2 GM AdvVial IV ONE (19:43)
[2019-05-18] MEDS ORDERED: Sodium Chloride 0.9% 100 ML ONE (19:46)
[2019-05-18] MEDS ORDERED: Acetaminophen 325 MG Tab PO ONE (21:15)
--- NOTE | 2019-05-18 21:20 | CT ---
CT abdomen and pelvis Technique: Multiple axial sections were obtained from above the dome of the diaphragm inferiorly to the pubic symphysis. Intravenous and oral contrast not utilized. Comparison: No prior CT abdomen or pelvis exam, previous abdominal x-ray of 07/07/18. Findings: Heart appears to be somewhat enlarged. Visualized lung bases showed nothing acute. Noncontrast appearance of the liver shows no focal abnormality. Spleen shows no discrete abnormality. Gallbladder contains a single calcified gallstone measuring 1.0 cm. No discrete adrenal nodules are seen. Small lymph node is noted within the upper right mediastinum measuring 1.4 cm in size. No other retroperitoneal lymph nodes are seen and this is likely incidental. Multiple medullary calcifications are seen within both kidneys. No hydronephrosis is seen of either kidney. Umbilical hernia is seen containing fat. Diverticuli are seen within the sigmoid colon. No inflammatory change of diverticulitis. Artifact is noted within the pelvis from bilateral hip prosthesis. No free fluid or inflammatory change is appreciated. Moderately large hiatal hernia is noted. Pancreas shows no discrete abnormality. Appendix felt to be visualized and is normal in size. Bone window settings were reviewed which shows diffuse degenerative change within the spine. Mild spondylolisthesis is seen at L4-L5 due to degenerative apophyseal change. Impression: 1. Multiple findings as noted above. 2. Nothing acute is definitely appreciated. Diagnostic code #3 Study was dictated in [place] Standard Time
--- NOTE | 2019-05-18 21:20 | CT ---
CT lumbar spine Technique: Multiple axial sections through the lumbar spine were obtained. Reconstructed coronal and sagittal images were obtained. Comparison: No prior lumbar spine imaging is available. Findings: Diffuse disc space narrowing and vacuum phenomena is seen throughout the lumbar spine. Posterior disc space narrowing is seen at L3-L4. Old limbus type vertebra is noted within anterior and superior endplate of L3. Spondylolisthesis is noted at L4-L5 measuring about 7.7 mm which is due to severe degenerative apophyseal change. Diffuse degenerative apophyseal change also seen within other levels of the lumbar spine. No acute fracture is seen. Multiple levels of neural foraminal stenosis is seen. Central canal stenosis is noted at L4-L5. Slight deformity of thecal sac noted at L2-3 due to degenerative apophyseal change. No other levels of central canal stenosis is seen. Impression: 1. Severe degenerative change as noted above. Central canal stenosis noted at L4-L5 due to spondylolisthesis. Scattered areas of neural foraminal narrowing are also noted. 2. No acute fracture is seen. Diagnostic code #3 Study was dictated in [place] Standard Time
--- NOTE | 2019-05-19 07:02 | CR ---
Chest: Portable view of the chest was obtained. Comparison: Prior chest x-ray of 07/07/18. Heart is slightly enlarged. Tortuous thoracic aorta is noted. Pacemaker is present. Bilateral shoulder prosthesis are noted. Slight linear scarring noted within the left midlung. Lungs are otherwise clear with no acute parenchymal change. Impression: 1. Findings as noted above. 2. Nothing acute is identified on portable chest x-ray. Diagnostic code #2 This report was dictated in [place] Standard Time
--- NOTE | 2019-05-19 07:02 | CR ---
Abdomen: Supine view of the abdomen was obtained. Comparison: Prior abdominal x-ray of 07/07/18. Bilateral hip prosthesis are noted. Calcification is noted within the right upper abdomen which correlates to a calcified gallstone. Bowel gas pattern appears normal. Prior pacemaker appears noted. Heart is enlarged. Calcifications are seen within the pelvis which are felt compatible with phleboliths. Impression: 1. Nonacute findings as noted above. Diagnostic code #2 This report was dictated in [place] Standard Time
== END 2019-05-18 22:25 ==
LOC: JD.ED 16:04
DX: N12 Tubulo-interstitial nephritis, not specified as acute or chronic (principal); M47.26 Other spondylosis with radiculopathy, lumbar region; I13.0 Hypertensive heart and chronic kidney disease with heart failure and stage 1 through stage 4 chronic kidney disease, or unspecified chronic kidney disease; N18.3 Chronic kidney disease, stage 3 (moderate); I50.9 Heart failure, unspecified; N13.9 Obstructive and reflux uropathy, unspecified; N31.9 Neuromuscular dysfunction of bladder, unspecified; E03.9 Hypothyroidism, unspecified; E66.9 Obesity, unspecified; E78.00 Pure hypercholesterolemia, unspecified; I25.2 Old myocardial infarction; Z88.8 Allergy status to other drugs, medicaments and biological substances; Z79.890 Hormone replacement therapy; Z79.899 Other long term (current) drug therapy; Z87.891 Personal history of nicotine dependence; Z68.31 Body mass index [BMI] 31.0-31.9, adult
CPT/HCPCS: 36415; 51702; 51798; 71045; 72131; 74018; 74176; 80053; 80162; 81001; 83605; 83735; 85007; 85027; 85610; 85730; 86140; 87040; 87086; 87088; 87186; 93005; 96361; 96365; 96375; 99285; J0696; J2405; J7042; J7050

== ENCOUNTER 2020-03-14 19:51 | Emergency (ER) | payer MEDICARE, BC ==
[2020-03-14 20:02] VITALS: BP 178/98; PULSE 98
--- NOTE | 2020-03-14 20:32 | EDM.PDOC ---
ED HPI GENERAL MEDICAL PROBLEM - General Chief Complaint: Genitourinary Problem Stated Complaint: CATHETER PLUGGED Time Seen by Provider: 03/14/20 20:01 Source of Information: Reports: Patient History Limitations: Reports: No Limitations - History of Present Illness INITIAL COMMENTS - FREE TEXT/NARRATIVE: Mrs. 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 She is concerned that her Jeter ca theter is clogged. She does not have any pain, although she is able to sense that her bladder is full. No recent fever, chills, nausea, vomiting, or flank pain. Here in the ED, the patient's initial BP is found to be elevated at 178/98, otherwise, she is hemodynamically stable, afebrile, saturating 99% on room air. Other than her urinary issues, the patient denies having a recent fever, chills, sore throat, ear pain, nasal or sinus congestion, cough, dyspnea, chest pain, palpitations, nausea, vomiting, constipation, diarrhea, abdominal pain, recent weight gain or weight loss, recent bloody bowel movements or black bowel movements, recent joint aches, headaches, or rashes. The patient's PCP is Dr. Luna Mcneal. Her Urologist is Dr. Kev Swartz. Her cardiology midlevel is Antonia Scott NP. Her EP Bow Machine Operator is Dr. Andrey Adair. - Related Data Allergies Allergy/AdvReac Type Severity Reaction Status Date / Time ACEINHIBITORS Allergy Intermediate Edema Verified 03/14/20 20:02 [MELYSSA Inhibitors] hydrochlorothiazide Allergy Intermediate unknown Verified 03/14/20 20:02 tetracycline [Tetracycline] Allergy Intermediate Hives Verified 03/14/20 20:02 Home Meds: Home Meds Calcium Carbonate/Vitamin D3 [Caltrate 600 Plus D3 Tablet] 1 each PO BID 07/30/13 [History] Folic Acid 0.5 mg PO DAILY 07/30/13 [History] Levothyroxine [Synthroid] 50 mcg PO ASDIRECTED 07/30/13 [History] Levothyroxine [Synthroid] 100 mcg PO ASDIRECTED 07/30/13 [History] Multivitamin [Multivitamins] 1 each PO DAILY 07/30/13 [History] Omeprazole [Prilosec] 20 mg PO DAILY 07/30/13 [History] Potassium Chloride [Klor-Con 10] 20 meq PO QAM 07/30/13 [History] Propylene Glycol/Peg 400 [Systane Liquid Gel Eye Drops] 1 drop EYEBOTH DAILY PRN 07/30/13 [History] atenoloL [Atenolol] 50 mg PO DAILY 07/30/13 [History] Acetaminophen [Tylenol Arthritis Pain] 650 mg PO Q8H PRN 07/07/18 [History] Cyanocobalamin (Vitamin B-12) [B-12] 1,000 mcg PO DAILY 07/07/18 [History] Diclofenac Sodium [Voltaren 1% Gel] 2 gm TOP BID PRN 07/07/18 [History] Diltiazem [Cardizem CD] 120 mg PO DAILY 07/07/18 [History] Docusate Sodium 200 mg PO DAILY 07/07/18 [History] Fluticasone Propionate [Flonase Allergy Relief] 1 spray CATHY BID 07/07/18 [History] Loratadine 10 mg PO DAILY 07/07/18 [History] Melatonin 5 mg PO BEDTIME 07/07/18 [History] Polyethylene Glycol [Polyox Wsr-301] 17 g PO Q72H 07/07/18 [History] Rosuvastatin Calcium 20 mg PO DAILY 07/07/18 [History] Sertraline [Zoloft] 75 mg PO QPM 07/07/18 [History] guaiFENesin [Mucinex] 1,200 mg PO BID 07/07/18 [History] Potassium Chloride [K-Tab ER] 10 meq PO QPM 07/08/18 [History] Furosemide [Lasix] 40 mg PO ASDIRECTED #1 tablet 07/12/18 [Rx] Past Medical History HEENT History: Reports: Impaired Vision (wears glasses) Cardiovascular History: Reports: Afib (paroxysmal), Cardiomyopathy, Heart Failure, High Cholesterol, Hypertension Gastrointestinal History: Reports: GERD, Hemorrhoids, Hiatal Hernia Genitourinary History: Reports: Renal Calculus, Retention, Urinary (secondary to spinal stenosis) Musculoskeletal History: Reports: Back Pain, Chronic (spinal stenosis), Osteoarthritis Psychiatric History: Reports: Anxiety, Depression Endocrine/Metabolic History: Reports: Hypothyroidism - Infectious Disease History Infectious Disease History: Reports: Chicken Pox, Measles - Past Surgical History HEENT Surgical History: Reports: Oral Surgery (dental extractions), Tonsillectomy Cardiovascular Surgical History: Reports: Pacer, Other (See Below) (Coronary angiogram x 2) GI Surgical History: Reports: Hernia, Inguinal (right) Female Surgical History: Reports: D&C (x 1) Neurological Surgical History: Reports: Lumbar Spine (fusion) Musculoskeletal Surgical History: Reports: Hip Replacement (bilateral), Shoulder Replacement (bilateral), Other (See Below) (Bilateral bunionectomy) Social & Family History - Tobacco Use Tobacco Use Status *Q: Former Tobacco User Years of Tobacco use: 36 Packs/Tins Daily: 1 Month/Year Tobacco Last Used: Quit 2003 - Caffeine Use Caffeine Use: Reports: Coffee Other Caffeine Use: Last use greater than 1 week, 6 cups per day and 1 can per day - Alcohol Use Alcohol Use History: Yes Alcohol Use Frequency: Socially - Recreational Drug Use Recreational Drug Use: No - Living Situation & Occupation Living situation: Reports: (Suddenly in February 2017.), Alone Occupation: Retired ED ROS GENERAL - Review of Systems Review Of Systems: Comprehensive ROS is negative, except as noted in HPI. ED EXAM, RENAL/ - Physical Exam Exam: See Below Exam Limited By: No Limitations General Appearance: Alert, WD/WN, No Apparent Distress Eye Exam: Bilateral Eye: EOMI, Normal Inspection Ears: Normal External Exam, Hearing Loss Nose: Normal Inspection Throat/Mouth: Normal Inspection, Normal Lips, Normal Voice, No Airway Compromise Head: Atraumatic, Normocephalic Neck: Normal Inspection, Full Range of Motion Respiratory/Chest: No Respiratory Distress, Lungs Clear, Normal Breath Sounds, No Accessory Muscle Use Cardiovascular: Normal Peripheral Pulses, Regular Rate, Rhythm, No Gallop, No JVD, No Murmur, No Rub GI/Abdominal: Normal Bowel Sounds, Soft, Non-Tender, No Organomegaly, No Distention, No Abnormal Bruit, No Mass, Other (Protuberant abdomen, although not tense. Protruding umbilical hernia, easily reduced.) Extremities: Normal Inspection, Normal Range of Motion, Normal Capillary Refill Neurological: Alert, Oriented, Normal Cognition, No Motor/Sensory Deficits Psychiatric: Normal Affect Skin Exam: Warm, Dry, Intact, Normal Color, No Rash Course - Vital Signs Last Recorded V/S: Last Vital Signs Temp 36.6 C 03/14/20 19:56 Pulse 98 03/14/20 19:56 Resp 16 03/14/20 19:56 BP 178/98 H 03/14/20 19:56 Pulse Ox 99 03/14/20 19:56 - Orders/Labs/Meds Orders: Active Orders 24 hr Category Date Time Status Insert Urinary Catheter [OM.PC] Stat Care 03/14/20 20:24 Ordered Remove Jeter Catheter [Urinary Catheter Removal] [RC] Care 03/14/20 20:24 Active PER UNIT ROUTINE Urinary Catheter Assessment [RC] ASDIRECTED Care 03/14/20 20:25 Active CULTURE URINE [RM] Stat Lab 03/14/20 20:25 Ordered - Re-Assessments/Exams Free Text/Narrative Re-Assessment/Exam: 03/14/20 20:26 The patient's Jeter catheter will be removed and a new one replaced. A sample of urine will be sent for a urine culture, however, I am not ordering a urinalysis, as current guidelines recommend diagnosis of asymptomatic chronic indwelling urinary catheter-associated UTI by culture alone, not by urinalysis. The patient is to follow-up with her PCP this coming Wednesday to check on the urine culture results. Departure - Departure Time of Disposition: 20:28 Disposition: Home, Self-Care 01 Condition: Good Clinical Impression: Obstructed Jeter catheter - Discharge Information *PRESCRIPTION DRUG MONITORING PROGRAM REVIEWED*: Not Applicable *COPY OF PRESCRIPTION DRUG MONITORING REPORT IN PATIENT SETH: Not Applicable Referrals: Luna Mcneal MD [Primary Care Provider] - Kev Swartz MD [Ordering Only Provider] - Antonia Scott NP [Ordering Only Provider] - Andrey Adair [Ordering Only Provider] - Forms: ED Department Discharge Additional Instructions: You were seen in the emergency room after discovering material in your Jeter catheter tubing for the past week, with decreased urine output today. Your Jeter catheter was exchanged for a fresh one, and a sample of your urine has been sent for culture. Continue to maintain your current Jeter catheter as you have, making sure that the bag is below your body height when you lie down, to prevent backflow of urine when you sleep. Follow-up with your PCP this coming Wednesday, this coming 03/18/2020, to check on the urine culture results, to see if you have a urinary tract infection that needs treating or not. If any other problems, please do not hesitate to return to the ER. Sepsis Event Note (ED) - Evaluation Sepsis Screening Result: No Definite Risk - Focused Exam Vital Signs: Vital Signs Temp Pulse Resp BP Pulse Ox 03/14/20 19:56 36.6 C 98 16 178/98 H 99 - My Orders Last 24 Hours: My Active Orders 03/14/20 20:24 Insert Urinary Catheter [OM.PC] Stat Remove Jeter Catheter [Urinary Catheter Removal] [RC] PER UNIT ROUTINE 03/14/20 20:25 Urinary Catheter Assessment [RC] ASDIRECTED CULTURE URINE [RM] Stat - Assessment/Plan Last 24 Hours: My Active Orders 03/14/20 20:24 Insert Urinary Catheter [OM.PC] Stat Remove Jeter Catheter [Urinary Catheter Removal] [RC] PER UNIT ROUTINE 03/14/20 20:25 Urinary Catheter Assessment [RC] ASDIRECTED CULTURE URINE [RM] Stat
== END 2020-03-14 20:55 | disposition home or self-care (01) ==
LOC: JD.ED 19:51
DX: T83.098A Other mechanical complication of other urinary catheter, initial encounter (principal); I48.91 Unspecified atrial fibrillation; E78.00 Pure hypercholesterolemia, unspecified; I11.0 Hypertensive heart disease with heart failure; I50.9 Heart failure, unspecified; K21.9 Gastro-esophageal reflux disease without esophagitis; F41.9 Anxiety disorder, unspecified; F32.9 Major depressive disorder, single episode, unspecified; M19.90 Unspecified osteoarthritis, unspecified site; E03.9 Hypothyroidism, unspecified; Z87.891 Personal history of nicotine dependence; Z88.8 Allergy status to other drugs, medicaments and biological substances; Z88.5 Allergy status to narcotic agent; Z88.1 Allergy status to other antibiotic agents; Z79.899 Other long term (current) drug therapy
CPT/HCPCS: 51702; 87086; 87088; 99283; 99283-25

== ENCOUNTER 2020-04-06 00:01 | Emergency (ER) | payer MEDICARE, BC ==
[2020-04-06 00:18] VITALS: BP 168/84; PULSE 86
--- NOTE | 2020-04-06 00:53 | EDM.PDOC ---
ED HPI GENERAL MEDICAL PROBLEM - General Chief Complaint: Head Injury Stated Complaint: FELL AND HIT HEAD Time Seen by Provider: 04/06/20 00:34 Source of Information: Reports: Patient History Limitations: Reports: No Limitations - History of Present Illness INITIAL COMMENTS - FREE TEXT/NARRATIVE: This is a 74-year-old female. She is on Eliquis because she has atrial fibrillation that she goes in and out of. This morning around 10 AM she fell striking the right side of her head and her ear and she has developed bruising to both of her orbits. Apparently a couple days ago she scratched or rubbed her right eyebrow and it developed bruising the drain into her right eye and now with a fall she is got extra bruising to that right eye and so the eyelid is bruised and swollen shut. So has some bruising to her right ear complains of some right shoulder soreness right hand soreness and left great toe soreness. She does not believe she hit her hip or her knee. When she talked to her granddaughter who is a international sales manager in [place] was encouraged to come to the ER for evaluation. She denies any significant headache and no neck pain denies any sort of hip pain. She does walk with a walker and she is rather unsteady on her feet. She states that she fell but she did not blackout or have dizziness. - Related Data Allergies Allergy/AdvReac Type Severity Reaction Status Date / Time ACEINHIBITORS Allergy Intermediate Edema Verified 04/06/20 00:18 [MELYSSA Inhibitors] hydrochlorothiazide Allergy Intermediate unknown Verified 04/06/20 00:18 tetracycline [Tetracycline] Allergy Intermediate Hives Verified 04/06/20 00:18 Home Meds: Home Meds Calcium Carbonate/Vitamin D3 [Caltrate 600 Plus D3 Tablet] 1 each PO BID 07/30/13 [History] Folic Acid 0.5 mg PO DAILY 07/30/13 [History] Levothyroxine [Synthroid] 50 mcg PO ASDIRECTED 07/30/13 [History] Levothyroxine [Synthroid] 100 mcg PO ASDIRECTED 07/30/13 [History] Multivitamin [Multivitamins] 1 each PO DAILY 07/30/13 [History] Omeprazole [Prilosec] 20 mg PO DAILY 07/30/13 [History] Potassium Chloride [Klor-Con 10] 20 meq PO QAM 07/30/13 [History] Propylene Glycol/Peg 400 [Systane Liquid Gel Eye Drops] 1 drop EYEBOTH DAILY PRN 07/30/13 [History] atenoloL [Atenolol] 50 mg PO DAILY 07/30/13 [History] Acetaminophen [Tylenol Arthritis Pain] 650 mg PO Q8H PRN 07/07/18 [History] Cyanocobalamin (Vitamin B-12) [B-12] 1,000 mcg PO DAILY 07/07/18 [History] Diclofenac Sodium [Voltaren 1% Gel] 2 gm TOP BID PRN 07/07/18 [History] Diltiazem [Cardizem CD] 120 mg PO DAILY 07/07/18 [History] Docusate Sodium 200 mg PO DAILY 07/07/18 [History] Fluticasone Propionate [Flonase Allergy Relief] 1 spray CATHY BID 07/07/18 [History] Loratadine 10 mg PO DAILY 07/07/18 [History] Melatonin 5 mg PO BEDTIME 07/07/18 [History] Polyethylene Glycol [Polyox Wsr-301] 17 g PO Q72H 07/07/18 [History] Rosuvastatin Calcium 20 mg PO DAILY 07/07/18 [History] Sertraline [Zoloft] 75 mg PO QPM 07/07/18 [History] guaiFENesin [Mucinex] 1,200 mg PO BID 07/07/18 [History] Potassium Chloride [K-Tab ER] 10 meq PO QPM 07/08/18 [History] Furosemide [Lasix] 40 mg PO ASDIRECTED #1 tablet 07/12/18 [Rx] Past Medical History HEENT History: Reports: Impaired Vision Other HEENT History: Pt wears glasses, cataaracts starting Cardiovascular History: Reports: Afib, Cardiomyopathy, Heart Failure, High Cholesterol, Hypertension Respiratory History: Reports: SOB Gastrointestinal History: Reports: GERD, Hemorrhoids, Hiatal Hernia Genitourinary History: Reports: Renal Calculus, Retention, Urinary Other Genitourinary History: Bilat stones present in kidneys Musculoskeletal History: Reports: Back Pain, Chronic, Osteoarthritis Psychiatric History: Reports: Anxiety, Depression Endocrine/Metabolic History: Reports: Hypothyroidism Dermatologic History: Reports: Other (See Below) Other Dermatologic History: Severe dryness - Infectious Disease History Infectious Disease History: Reports: Chicken Pox, Measles - Past Surgical History HEENT Surgical History: Reports: Oral Surgery, Tonsillectomy Cardiovascular Surgical History: Reports: Pacer, Other (See Below) Other Cardiovascular Surgeries/Procedures: Catheterized X2 Respiratory Surgical History: Reports: None GI Surgical History: Reports: Hernia, Inguinal Female Surgical History: Reports: D&C Endocrine Surgical History: Reports: None Neurological Surgical History: Reports: Lumbar Spine Musculoskeletal Surgical History: Reports: Hip Replacement, Shoulder Replacement, Other (See Below) Other Musculoskeletal Surgeries/Procedures:: X 2 Hips, X2 shoulders Social & Family History - Family History Family Medical History: No Pertinent Family History - Tobacco Use Tobacco Use Status *Q: Former Tobacco User Years of Tobacco use: 10 Packs/Tins Daily: 1 Used Tobacco, but Quit: Yes Month/Year Tobacco Last Used: 03/1999 Second Hand Smoke Exposure: No - Caffeine Use Caffeine Use: Reports: Soda Other Caffeine Use: Last use greater than 1 week, 6 cups per day and 1 can per day - Alcohol Use Days Per Week of Alcohol Use: 7 Number of Drinks Per Day: 1 Total Drinks Per Week: 7 Date of Last Drink: 04/06/20 Time of Last Drink: 20:00 - Recreational Drug Use Recreational Drug Use: No - Living Situation & Occupation Living situation: Reports: (Suddenly in February 2017.), Alone Occupation: Retired ED ROS GENERAL - Review of Systems Review Of Systems: See Below Constitutional: Reports: Weakness. Denies: Fever, Chills HEENT: Reports: Other (As per HPI) Respiratory: Reports: Shortness of Breath, Cough Cardiovascular: Reports: No Symptoms Endocrine: Reports: No Symptoms GI/Abdominal: Denies: Abdominal Pain : Reports: Other (Chronic Jeter catheter) Musculoskeletal: Reports: Other (As per HPI) Skin: Reports: Other (Multiple ecchymosis on her arms) Neurological: Reports: Difficulty Walking Psychiatric: Reports: No Symptoms Hematologic/Lymphatic: Reports: Easy Bruising ED EXAM, HEAD INJURY - Physical Exam Exam: See Below Exam Limited By: No Limitations General Appearance: Alert, WD/WN, No Apparent Distress Head: Other (She has a larger bruising on her right forehead that is draining into her right orbit and eyelid area causing the eyelids to close, she has some mild bruising around the orbit of the left eye as well but full EOMs on both eye s.). No: Atraumatic Eyes: Bilateral Eye: EOMI, PERRL, Other (Not open up her right I enclose her left she is able to identify my read glasses) Ears: Normal Canal, Normal TMs, Other (She has bruising of the lower part of the outside of the ear but the canals are clear and the TMs are clear) Nose: Normal Inspection, Dried Blood Throat/Mouth: Normal Inspection, Normal Oropharynx, Normal Voice, No Airway Compromise Neck: Non-Tender, Full Range of Motion, Other (He denies any tenderness of her neck and she moves it freely) Respiratory: No Respiratory Distress, Lungs Clear, Normal Breath Sounds, Other (No chest pain or rib pain is noted) Cardiovascular: Regular Rate, Rhythm, No Murmur, Other (She has a very regular rate presently but she says she goes in and out of atrial fib) GI/Abdominal Exam: Soft, Non-Tender Back Exam: Decreased Range of Motion Extremities: Other (A lot of ecchymosis on her forearms noted but then she has increased bruising on the dorsal right hand though she has good range of motion of her digits, her right shoulder is tender in the trapezius area but she has full range of motion of that shoulder and there is no obvious bruising noted. The left great toe also has bruising but does not appear to be deformed. There is no knee bruising bilaterally she denies any hip bruising.) Neurologic: Alert, Normal Mood/Affect, Oriented x 3 Skin: Warm/Dry - Stevinson Coma Score Best Eye Response (Bakari): (4) Open Spontaneously Best Verbal Response (Stevinson): (5) Oriented Best Motor Response (Bakari): (6) Obeys Commands Bakari Total: 15 Course - Vital Signs Last Recorded V/S: Last Vital Signs Temp Pulse 86 04/06/20 00:11 Resp 16 04/06/20 00:11 BP 168/84 H 04/06/20 00:11 Pulse Ox 94 L 04/06/20 00:11 - Orders/Labs/Meds Orders: Active Orders 24 hr Category Date Time Status Face Neck Orbit wo Cont [MR] Stat Exams 04/06/20 00:45 Ordered Head wo Cont [CT] Stat Exams 04/06/20 00:45 Taken Toes Great Toe Lt TA [CR] Stat Exams 04/06/20 00:46 Taken - Radiology Interpretation Free Text/Narrative:: Intracranial hemorrhage and there is no skull fractures. There is no entrapment of the eyeballs and no facial fractures of what they could see. - Re-Assessments/Exams Free Text/Narrative Re-Assessment/Exam: 04/06/20 02:42 Spoke to the patient regarding her CT scan results. The bruising is related to the Eliquis and there are no internal injuries. She is going to take time for that bruising to resolve. I did speak to her granddaughter Yuridia, , regarding the findings of the CT scan with the patient's permission. 04/06/20 02:49 I tried to call her daughter An on the patient's phone but the voicemail was full so the patient will call her daughter later. Departure - Departure Time of Disposition: 02:50 Disposition: Home, Self-Care 01 Condition: Fair Clinical Impression: Facial contusion Qualifiers: Encounter type: initial encounter Qualified Code(s): S00.83XA - Contusion of other part of head, initial encounter Contusion of ear (auricle) Qualifiers: Encounter type: initial encounter Laterality: right Qualified Code(s): S00.431A - Contusion of right ear, initial encounter Contusion of right shoulder Qualifiers: Encounter type: initial encounter Qualified Code(s): S40.011A - Contusion of right shoulder, initial encounter Contusion of right hand Qualifiers: Encounter type: initial encounter Qualified Code(s): S60.221A - Contusion of right hand, initial encounter Contusion of left great toe without damage to nail Qualifiers: Encounter type: initial encounter Qualified Code(s): S90.112A - Contusion of left great toe without damage to nail, initial encounter - Discharge Information *PRESCRIPTION DRUG MONITORING PROGRAM REVIEWED*: Not Applicable *COPY OF PRESCRIPTION DRUG MONITORING REPORT IN PATIENT SETH: Not Applicable Instructions: Contusion, [id number] Referrals: Luna Mcneal MD [Primary Care Provider] - Forms: ED Department Discharge Additional Instructions: Use ice on and off to the areas that hurt over the next any 4 to 48 hours, take Tylenol as needed for the soreness, it is good to take 1 to 2 weeks for the bruising to resolve on your face, you need to follow-up with your family doctor later this week for recheck, return to the ER if needed Sepsis Event Note (ED) - Evaluation Sepsis Screening Result: No Definite Risk - Focused Exam Vital Signs: Vital Signs Pulse Resp BP Pulse Ox 04/06/20 00:11 86 16 168/84 H 94 L - My Orders Last 24 Hours: My Active Orders 04/06/20 00:45 Face Neck Orbit wo Cont [MR] Stat Head wo Cont [CT] Stat 04/06/20 00:46 Toes Great Toe Lt TA [CR] Stat - Assessment/Plan Last 24 Hours: My Active Orders 04/06/20 00:45 Face Neck Orbit wo Cont [MR] Stat Head wo Cont [CT] Stat 04/06/20 00:46 Toes Great Toe Lt TA [CR] Stat
--- NOTE | 2020-04-06 14:32 | CR ---
Left first toe: 3 view centered to the left first toe were obtained. Comparison: No previous toe or foot study is available. Bony structures are osteopenic. This makes evaluation difficult. Degenerative change is noted within the MTP joint of the first toe. Deformity of the base of the proximal phalanx is seen. Difficult to completely exclude fracture. No other acute abnormality is appreciated. Old fracture appears to be present within the distal fifth metatarsal with mild endosteal sclerosis. Impression: 1. Slight deformity within the base of the proximal phalanx of the left first toe possibly due to fracture. 2. Degenerative change and less than acute fracture within the fifth metatarsal. Diagnostic code #3
--- NOTE | 2020-04-06 14:40 | CT ---
Head CT Technique: Multiple axial sections through the brain were obtained. Intravenous contrast was not utilized. Reconstructed coronal and sagittal images were obtained. No prior intracranial imaging is appreciated. Findings: Soft tissue hematoma is seen within the right frontal scalp. Mild soft tissue swelling is noted around the right orbital region. Ventricles along with basal cisterns and sulci over the convexities are moderately prominent. Minimal areas of diminished density are noted within the periventricular white matter and subcortical white matter which is felt compatible with small vessel ischemic demyelination change. No evidence of intracranial hemorrhage. No midline shift or mass-effect is appreciated. Bone window settings were reviewed which show no acute abnormality within the mastoid or visualized paranasal sinuses. No acute calvarial fracture is seen. Impression: 1. Soft tissue hematoma within the right frontal scalp. Soft tissue swelling around the right orbit. 2. Mild senescent change as noted above. 3. No acute intracranial abnormality is appreciated. Diagnostic code #3 I agree with preliminary report from [facility], finalized on 04/06/20, 3:21 AM [employer] ATT[employer]
== END 2020-04-06 03:00 | disposition home or self-care (01) ==
LOC: JD.ED 00:01
DX: S90.112A Contusion of left great toe without damage to nail, initial encounter (principal); S60.221A Contusion of right hand, initial encounter; S40.011A Contusion of right shoulder, initial encounter; S00.431A Contusion of right ear, initial encounter; S50.12XA Contusion of left forearm, initial encounter; S50.11XA Contusion of right forearm, initial encounter; S00.83XA Contusion of other part of head, initial encounter; I48.91 Unspecified atrial fibrillation; I11.0 Hypertensive heart disease with heart failure; I50.9 Heart failure, unspecified; E78.00 Pure hypercholesterolemia, unspecified; K21.9 Gastro-esophageal reflux disease without esophagitis; E03.9 Hypothyroidism, unspecified; Z79.899 Other long term (current) drug therapy; Z88.8 Allergy status to other drugs, medicaments and biological substances; Z88.1 Allergy status to other antibiotic agents; Z79.01 Long term (current) use of anticoagulants; Z87.891 Personal history of nicotine dependence; W22.8XXA Striking against or struck by other objects, initial encounter
CPT/HCPCS: 70450; 70450-26; 73660-26-TA; 73660-TA; 99283; 99284-25

== ENCOUNTER 2020-07-10 14:22 | Emergency (ER) | payer MEDICARE, BC ==
[2020-07-10 15:09] VITALS: BP 168/137; PULSE 63
--- NOTE | 2020-07-10 15:43 | EDM.PDOC ---
ED HPI GENERAL MEDICAL PROBLEM - General Chief Complaint: Eye Problems Stated Complaint: LT EYE COMPLAINT Time Seen by Provider: 07/10/20 15:01 Source of Information: Reports: Patient, RN Notes Reviewed - History of Present Illness INITIAL COMMENTS - FREE TEXT/NARRATIVE: 74 yr old female comes in with a red L eye. States her eye was mildly red yesterday. Awakened this morning with sclera of L eye tremendously red, swollen. Mild buring discomfort. She admits she was "rubbing her eye yesterday secondary to the mild irritation." No Blanco. No chest pain or difficulty breathing. Has bilat swollen legs somewhat chronic, pt not sure if worse than usual. States her furosemide was increased from 40 bid to 60 bid a few days ago but has not been alway taking her 2nd dose. She states she has been getting up late some days, taking her first dose late in the morning and than admits not always taking the 2nd dose. Left Eye Pain Score (Numeric/FACES): 3 - Related Data Allergies Allergy/AdvReac Type Severity Reaction Status Date / Time ACEINHIBITORS Allergy Intermediate Edema Verified 07/10/20 16:46 [MELYSSA Inhibitors] hydrochlorothiazide Allergy Intermediate unknown Verified 07/10/20 16:46 tetracycline [Tetracycline] Allergy Intermediate Hives Verified 07/10/20 16:46 Home Meds: Home Meds Calcium Carbonate/Vitamin D3 [Caltrate 600 Plus D3 Tablet] 1 each PO BID 07/30/13 [History] Folic Acid 0.5 mg PO DAILY 07/30/13 [History] Levothyroxine [Synthroid] 50 mcg PO ASDIRECTED 07/30/13 [History] Multivitamin [Multivitamins] 1 each PO DAILY 07/30/13 [History] Potassium Chloride [Klor-Con 10] 20 meq PO QAM 07/30/13 [History] Propylene Glycol/Peg 400 [Systane Liquid Gel Eye Drops] 1 drop EYEBOTH DAILY PRN 07/30/13 [History] Acetaminophen [Tylenol Arthritis Pain] 650 mg PO Q8H PRN 07/07/18 [History] Cyanocobalamin (Vitamin B-12) [B-12] 1,000 mcg PO DAILY 07/07/18 [History] Diclofenac Sodium [Voltaren 1% Gel] 2 gm TOP BID PRN 07/07/18 [History] Docusate Sodium 200 mg PO DAILY PRN 07/07/18 [History] Fluticasone Propionate [Flonase Allergy Relief] 1 spray CATHY BID PRN 07/07/18 [H istory] Melatonin 5 mg PO BEDTIME 07/07/18 [History] Polyethylene Glycol [Polyox Wsr-301] 17 g PO Q72H PRN 07/07/18 [History] Rosuvastatin Calcium 20 mg PO DAILY 07/07/18 [History] Sertraline [Zoloft] 100 mg PO QPM 07/07/18 [History] guaiFENesin [Mucinex] 600 mg PO BID 07/07/18 [History] Apixaban [Eliquis] 5 mg PO DAILY 07/10/20 [History] Digoxin [Lanoxin] 125 mcg PO ASDIRECTED 07/10/20 [History] Furosemide [Lasix] 60 mg PO BID 07/10/20 [History] Metoprolol Succinate 25 mg PO BID 07/10/20 [History] Nitroglycerin 0.4 mg PO ASDIRECTED PRN 07/10/20 [History] Tamsulosin [Flomax] 0.4 mg PO BID 07/10/20 [History] Past Medical History HEENT History: Reports: Impaired Vision Other HEENT History: Pt wears glasses, cataaracts starting Cardiovascular History: Reports: Afib, Cardiomyopathy, Heart Failure, High Cholesterol, Hypertension Respiratory History: Reports: SOB Gastrointestinal History: Reports: GERD, Hemorrhoids, Hiatal Hernia Genitourinary History: Reports: Renal Calculus, Retention, Urinary Other Genitourinary History: Bilat stones present in kidneys Musculoskeletal History: Reports: Back Pain, Chronic, Osteoarthritis Psychiatric History: Reports: Anxiety, Depression Endocrine/Metabolic History: Reports: Hypothyroidism Dermatologic History: Reports: Other (See Below) Other Dermatologic History: Severe dryness - Infectious Disease History Infectious Disease History: Reports: Chicken Pox, Measles - Past Surgical History HEENT Surgical History: Reports: Oral Surgery, Tonsillectomy Cardiovascular Surgical History: Reports: Pacer, Other (See Below) Other Cardiovascular Surgeries/Procedures: Catheterized X2 Respiratory Surgical History: Reports: None GI Surgical History: Reports: Hernia, Inguinal Female Surgical History: Reports: D&C Endocrine Surgical History: Reports: None Neurological Surgical History: Reports: Lumbar Spine Musculoskeletal Surgical History: Reports: Hip Replacement, Shoulder Replacement, Other (See Below) Other Musculoskeletal Surgeries/Procedures:: X 2 Hips, X2 shoulders Social & Family History - Family History Family Medical History: No Pertinent Family History - Caffeine Use Caffeine Use: Reports: Soda Other Caffeine Use: Last use greater than 1 week, 6 cups per day and 1 can per day - Living Situation & Occupation Living situation: Reports: (Suddenly in February 2017.), Alone Occupation: Retired ED ROS GENERAL - Review of Systems Review Of Systems: See Below Constitutional: Denies: Fever, Chills HEENT: Reports: Eye Pain (mild burning L eye). Denies: Eye Discharge Respiratory: Reports: No Symptoms Cardiovascular: Reports: Edema (bilat leg edema, chronic). Denies: No Symptoms, Chest Pain GI/Abdominal: Denies: Abdominal Pain, Nausea, Vomiting Musculoskeletal: Reports: No Symptoms Skin: Denies: Rash Neurological: Reports: No Symptoms. Denies: Headache, Numbness, Tingling, Trouble Speaking, Weakness ED EXAM GENERAL W FULL EYE - Physical Exam Exam: See Below General Appearance: Alert, No Apparent Distress Eye Exam: Bilateral Eye: Conjunctival Injection (severe subconjuctival hemhorrage entire sclera L eye with edema or swelling associated with the SC hemorrhage), PERRL Visual Acuity (R) 20/: 40 Visual Acuity (L) 20/: 50 Conjunctiva & Sclera: Left: Conjunctival Edema, Subconjuctival Hemorrhage Cornea Exam: Bilateral: Normal Appearance Anterior Chamber: Bilateral: Normal Appearance Ears: Normal External Exam Nose: Normal Inspection Throat/Mouth: Normal Inspection Head: Atraumatic. No: Facial Swelling Neck: Supple Respiratory/Chest: No Respiratory Distress, Lungs Clear, Normal Breath Sounds Extremities: Pedal Edema (moderate bilat.). No: Leg Pain, Increased Warmth Neurological: Alert, Oriented, No Motor/Sensory Deficits Skin Exam: Warm, Dry, Normal Color, No Rash Course - Vital Signs Last Recorded V/S: Last Vital Signs Temp 99 F 07/10/20 15:01 Pulse 63 07/10/20 15:01 Resp 18 07/10/20 15:01 BP 168/137 H 07/10/20 15:01 Pulse Ox 93 L 07/10/20 15:01 - Orders/Labs/Meds Labs: Laboratory Tests 07/10/20 07/10/20 Range/Units 15:35 15:35 WBC 6.60 (3.98-10.04) K/mm3 RBC 3.84 L (3.98-5.22) M/mm3 Hgb 12.0 (11.2-15.7) gm/dl Hct 38.8 (34.1-44.9) % MCV 101.0 H (79.4-94.8) fl MCH 31.3 (25.6-32.2) pg MCHC 30.9 L (32.2-35.5) g/dl RDW Std Deviation 54.3 H (36.4-46.3) fL Plt Count 158 L (182-369) K/mm3 MPV 10.1 (9.4-12.3) fl Neut % (Auto) 87.0 H (34.0-71.1) % Lymph % (Auto) 7.3 L (19.3-51.7) % [place] % (Auto) 5.3 (4.7-12.5) % Eos % (Auto) 0 L (0.7-5.8) Baso % (Auto) 0.2 (0.1-1.2) % Neut # (Auto) 5.75 (1.56-6.13) K/mm3 Lymph # (Auto) 0.48 L (1.18-3.74) K/mm3 [place] # (Auto) 0.35 (0.24-0.36) K/mm3 Eos # (Auto) 0.00 L (0.04-0.36) K/mm3 Baso # (Auto) 0.01 (0.01-0.08) K/mm3 Manual Slide Review Abnormal smear Sodium 148 H D (136-145) mEq/L Potassium 3.9 (3.5-5.1) mEq/L Chloride 104 (98-107) mEq/L Carbon Dioxide 31 (21-32) mEq/L Anion Gap 16.9 H (5-15) BUN 23 H D (7-18) mg/dL Creatinine 1.0 (0.55-1.02) mg/dL Est Cr Clr Drug Dosing 37.24 mL/min Estimated GFR (MDRD) 54 (>60) mL/min BUN/Creatinine Ratio 23.0 H (14-18) Glucose 112 (83-115) mg/dL Calcium 9.9 (8.5-10.1) mg/dL Total Bilirubin 0.6 (0.2-1.0) mg/dL AST 34 (15-37) U/L ALT 44 (14-59) U/L Alkaline Phosphatase 104 (46-116) U/L Total Protein 7.7 (6.4-8.2) g/dl Albumin 3.8 (3.4-5.0) g/dl Globulin 3.9 gm/dL Albumin/Globulin Ratio 1.0 (1-2) - Re-Assessments/Exams Free Text/Narrative Re-Assessment/Exam: 07/10/20 18:05 CBC normal, CMP relatively normal, Pt's vision OK L eye, similar to R eye, pt told her nurse her vision is "not perfect", has some macular degeneration. She needs to stop the eliquis for now. Plan to have her not take the eliquis for 1 week. Cardiac moniter shows paced rythm, rate in the 60's. Discharge instr. as documented. Departure - Departure Time of Disposition: 16:35 Disposition: Home, Self-Care 01 Condition: Fair Clinical Impression: Subconjunctival hemorrhage of left eye, Leg edema - Discharge Information Instructions: Subconjunctival Hemorrhage Referrals: Luna Mcneal MD [Primary Care Provider] - Forms: ED Department Discharge Additional Instructions: Stop the eliquis blood thinner for 1 week as discussed. Continue other medications as prescribed. Ice packs q 1 to 2 hours when awake the remainder of today and tomorrow. Try keep head elevated above chest as much as possible. Try see Dr Saleh or Dr Elizondo for recheck Wednesday or otherwise early next week, call tomorrow AM for appointment. Return to ED as needed, especially for severe pain or for vision difficulty L eye. Be very careful not to be rubbing the ey at any time as that could cause further bleeding. Sepsis Event Note (ED) - Evaluation Sepsis Screening Result: No Definite Risk - Focused Exam Vital Signs: Vital Signs Temp Pulse Resp BP Pulse Ox 07/10/20 15:01 99 F 63 18 168/137 H 93 L
== END 2020-07-10 17:05 | disposition home or self-care (01) ==
LOC: JD.ED 14:22
DX: H11.32 Conjunctival hemorrhage, left eye (principal); R60.0 Localized edema; I48.91 Unspecified atrial fibrillation; E78.00 Pure hypercholesterolemia, unspecified; I11.0 Hypertensive heart disease with heart failure; I50.9 Heart failure, unspecified; E03.9 Hypothyroidism, unspecified; Z88.1 Allergy status to other antibiotic agents; Z88.8 Allergy status to other drugs, medicaments and biological substances; Z79.01 Long term (current) use of anticoagulants; Z79.899 Other long term (current) drug therapy
CPT/HCPCS: 36415; 80053; 85025; 99283; 99284

== ENCOUNTER 2021-05-03 19:26 | Emergency (ER) | payer MEDICARE, BC ==
[2021-05-03 19:53] VITALS: BP 135/81; PULSE 66
== END 2021-05-03 20:45 | disposition home or self-care (01) ==
LOC: JD.ED 19:26
DX: T83.511A Infection and inflammatory reaction due to indwelling urethral catheter, initial encounter (principal); N39.0 Urinary tract infection, site not specified; I11.0 Hypertensive heart disease with heart failure; I50.9 Heart failure, unspecified; E78.00 Pure hypercholesterolemia, unspecified; K21.9 Gastro-esophageal reflux disease without esophagitis; E03.9 Hypothyroidism, unspecified; M19.90 Unspecified osteoarthritis, unspecified site; Z88.1 Allergy status to other antibiotic agents; Z88.8 Allergy status to other drugs, medicaments and biological substances; Z79.01 Long term (current) use of anticoagulants; Z79.899 Other long term (current) drug therapy; Z87.891 Personal history of nicotine dependence
CPT/HCPCS: 51702; 81001; 87086; 87088; 87186; 99283-25

== ENCOUNTER 2021-09-27 11:50 | Emergency (ER) | payer MEDICARE, BC ==
[2021-09-27] MEDS ORDERED: Dextrose 5%-0.9% NaCl 1,000 ML IV SCH (12:15)
[2021-09-27] MEDS ORDERED: Lidocaine 1% with EPINEPHrine 1:100,000 10 ML MDV INJECT ONE (12:41)
[2021-09-27 12:56] LABS: ESTIMATED GFR 47 mL/min (>60)
[2021-09-27] MEDS ORDERED: Lidocaine 1% with EPINEPHrine 1:100,000 20 ML MDV ONE (13:45)
[2021-09-27] MEDS ORDERED: Lidocaine 1% with EPINEPHrine 1:100,000 20 ML MDV INJECT ONE (13:45)
[2021-09-27] MEDS ORDERED: Sodium Chloride 0.9% 250 ML IV SCH (14:00)
[2021-09-27 16:35] VITALS: BP 117/57; PULSE 60
[2021-09-27] MEDS ORDERED: Furosemide 40 MG/4 ML VIAL IVPUSH ONE (16:39)
[2021-09-28] MEDS ORDERED: Furosemide 40 MG/4 ML VIAL IVPUSH ONE (16:30)
== END 2021-09-27 20:30 | disposition home or self-care (01) ==
LOC: SUPCPDRO 11:50 → JD.ED 11:50
DX: S01.01XA Laceration without foreign body of scalp, initial encounter (principal); S50.311A Abrasion of right elbow, initial encounter; F10.120 Alcohol abuse with intoxication, uncomplicated; K42.9 Umbilical hernia without obstruction or gangrene; I48.91 Unspecified atrial fibrillation; I13.0 Hypertensive heart and chronic kidney disease with heart failure and stage 1 through stage 4 chronic kidney disease, or unspecified chronic kidney disease; N18.9 Chronic kidney disease, unspecified; I50.32 Chronic diastolic (congestive) heart failure; D63.1 Anemia in chronic kidney disease; K21.9 Gastro-esophageal reflux disease without esophagitis; E03.9 Hypothyroidism, unspecified; M19.90 Unspecified osteoarthritis, unspecified site; Z88.1 Allergy status to other antibiotic agents; Z88.8 Allergy status to other drugs, medicaments and biological substances; Z79.01 Long term (current) use of anticoagulants; Z79.899 Other long term (current) drug therapy; Z95.0 Presence of cardiac pacemaker; W19.XXXA Unspecified fall, initial encounter; Y92.009 Unspecified place in unspecified non-institutional (private) residence as the place of occurrence of the external cause
CPT/HCPCS: 12002; 36415; 36430; 70450; 80053; 80307; 83690; 83735; 83880; 85025; 85610; 85730; 86140; 86850; 86900; 86901; 86922; 93005; 96361; 96374; 99284; J1940; J7042; J7050; P9016; 93010

== ENCOUNTER 2022-05-06 07:37 | Day surgery (SDC) | payer MEDICARE, BC ==
[~2022-05-06 07:37] MED LIST: Acetaminophen 325 MG Tab PO SCH; Gabapentin 300 MG Cap PO SCH; Lactated Ringers 1,000 ML IV SCH; Lidocaine 1%/Sod Bicarbonate in NS 8.4% 1 ML Syringe IDERM PRN; Sodium Chloride 0.9% 10 ML Syringe FLUSH PRN
[2022-05-06] MEDS ORDERED: Bupivacaine 0.5%/EPINEPHrine 1:200,000 50 ML MDV ONE (08:35)
[2022-05-06] MEDS ORDERED: HYDROmorphone 0.5 MG/0.5 ML Syringe ONE ×2 (09:04→10:20)
[2022-05-06] MEDS ORDERED: Phenylephrine HCl In 0.9% NaCl 1 MG/10 ML Vial ONE (09:04)
[2022-05-06] MEDS ORDERED: Etomidate 2 MG/ML 20 ML SDV IVPUSH ONE (09:04)
[2022-05-06] MEDS ORDERED: Ondansetron 4 MG/2 ML SDV ONE ×2 (09:04→10:16)
[2022-05-06] MEDS ORDERED: Midazolam 1 MG/ML 2 ML SDV ONE (09:05)
[2022-05-06] MEDS ORDERED: Ketamine 500 mg/10 ML MDV ONE (09:05)
[2022-05-06] MEDS ORDERED: fentaNYL 100 MCG/2 ML SDV ONE (09:06)
[2022-05-06] MEDS ORDERED: Rocuronium 50 MG/5 ML Vial ONE (09:09)
[2022-05-06] MEDS ORDERED: Succinylcholine 200 MG/10 ML MDV ONE (09:22)
[2022-05-06] MEDS ORDERED: Propofol 200 MG/20 ML SDV ONE (09:27)
[2022-05-06] MEDS ORDERED: ceFAZolin 2 GM Vial ONE (09:47)
[2022-05-06] MEDS ORDERED: traMADol 50 MG Tab PO PRN (10:55)
[2022-05-06] MEDS: Sodium Chloride 0.9% 10 ML Syringe FLUSH SCH ×2 (19:26→22:02)
[2022-05-07 04:02] VITALS: BP 95/53; PULSE 59
== END 2022-05-07 08:15 | disposition home or self-care (01) ==
LOC: JD.SDS 07:37 → JD.MS 18:42 → JD.SDS 05-07 08:15
PROVIDERS: ATTEND Surgery
DX: K42.0 Umbilical hernia with obstruction, without gangrene (principal); I11.0 Hypertensive heart disease with heart failure; I50.9 Heart failure, unspecified; E03.9 Hypothyroidism, unspecified; I73.00 Raynaud's syndrome without gangrene; I48.0 Paroxysmal atrial fibrillation; F41.9 Anxiety disorder, unspecified; F32.A Depression, unspecified; K21.9 Gastro-esophageal reflux disease without esophagitis; I42.9 Cardiomyopathy, unspecified; I25.10 Atherosclerotic heart disease of native coronary artery without angina pectoris; G62.9 Polyneuropathy, unspecified; Z98.890 Other specified postprocedural states; Z79.899 Other long term (current) drug therapy; Z79.890 Hormone replacement therapy; Z88.2 Allergy status to sulfonamides; Z88.8 Allergy status to other drugs, medicaments and biological substances; Z87.891 Personal history of nicotine dependence
CPT/HCPCS: 49594; A9270; C1781; J0330; J0690; J1170; J2405; J2704; J3010; J3490; J7120; J2250

== ENCOUNTER 2022-07-18 23:30 | Emergency (ER) | payer MEDICARE, BC ==
[2022-07-19 01:16] LABS: ESTIMATED GFR 39 mL/min (>60)
[2022-07-19] MEDS ORDERED: Cefdinir 300 MG Cap PO ONE (03:09)
[2022-07-19 04:46] VITALS: BP 130/70; PULSE 59
== END 2022-07-19 03:40 | disposition home or self-care (01) ==
LOC: JD.ED 23:30
DX: N39.0 Urinary tract infection, site not specified (principal); I48.91 Unspecified atrial fibrillation; K21.9 Gastro-esophageal reflux disease without esophagitis; I25.10 Atherosclerotic heart disease of native coronary artery without angina pectoris; E78.00 Pure hypercholesterolemia, unspecified; I11.0 Hypertensive heart disease with heart failure; I50.9 Heart failure, unspecified; I25.2 Old myocardial infarction; E03.9 Hypothyroidism, unspecified; Z88.8 Allergy status to other drugs, medicaments and biological substances; Z88.1 Allergy status to other antibiotic agents; Z79.01 Long term (current) use of anticoagulants; Z79.899 Other long term (current) drug therapy
CPT/HCPCS: 36415; 51702; 80053; 81001; 85025; 87086; 87088; 87186; 99284; A9270; 99283

== ENCOUNTER 2022-10-12 22:23 | Emergency (ER) | payer MEDICARE, BC ==
[2022-10-12 23:44] LABS: BASOPHILS ABSOLUTE AUTO 0.02 K/mm3 (0.01-0.08); BASOPHILS PERCENT AUTO 0.4 % (0.1-1.2); EOSINOPHILS ABSOLUTE AUTO 0.12 K/mm3 (0.04-0.36); EOSINOPHILS PERCENT AUTO 2.3 (0.7-5.8); HEMOGLOBIN 12.1 gm/dl (11.2-15.7); LYMPHOCYTES ABSOLUTE AUTO 0.98 K/mm3 (1.18-3.74); LYMPHOCYTES PERCENT AUTO 18.6 % (19.3-51.7); MEAN CORPUSCULAR HEMOGLOBIN 31.8 pg (25.6-32.2); MEAN CORPUSCULAR HGB CONC 31.8 g/dl (32.2-35.5); MEAN CORPUSCULAR VOLUME 99.7 fl (79.4-94.8); MEAN PLATELET VOLUME 10.6 fl (9.4-12.3); MONOCYTES PERCENT AUTO 11.4 % (4.7-12.5); NEUTROPHILS ABSOLUTE AUTO 3.55 K/mm3 (1.56-6.13); NEUTROPHILS PERCENT AUTO 67.3 % (34.0-71.1); PLATELET COUNT,PLT 140 K/mm3 (182-369); RED BLOOD CELL COUNT 3.81 M/mm3 (3.98-5.22); WHITE BLOOD CELL COUNT,WBC 5.27 K/mm3 (3.98-10.04)
[2022-10-13 00:02] LABS: APPEARANCE,URINE SLT CLOUDY (Clear); BILIRUBIN,URINE NEGATIVE (Negative); COLOR,URINE YELLOW (Yellow); GLUCOSE,URINE NEGATIVE (Negative); KETONES,URINE NEGATIVE (Negative); LEUKOCYTE ESTERASE,URINE 3+ (Negative); NITRITE,URINE POSITIVE (Negative); OCCULT BLOOD,URINE 1+ (Negative); PH,URINE 6.5 (5.0-8.0); PROTEIN,URINE TRACE (Negative); UROBILINOGEN,URINE 0.2 (0.2-1.0)
[2022-10-13 00:05] LABS: A/G RATIO 0.9 (1-2); ALANINE AMINOTRANSFERASE,ALT 29 U/L (14-59); ALBUMIN 3.4 g/dl (3.4-5.0); ALKALINE PHOSPHATASE 66 U/L (46-116); ASPARTATE AMNIOTRANSFERASE,AST 20 U/L (15-37); BILIRUBIN TOTAL 0.4 mg/dL (0.2-1.0); BLOOD UREA NITROGEN,BUN 23 mg/dL (7-18); BUN/CREATININE RATIO 20.9 (14-18); CALCIUM 9.5 mg/dL (8.5-10.1); CARBON DIOXIDE,CO2 29 mEq/L (21-32); CHLORIDE,CL 107 mEq/L (98-107); CREATININE 1.1 mg/dL (0.55-1.02); ESTIMATED GFR 52 mL/min (>60); GLUCOSE RANDOM 98 mg/dL (70-99); PROTEIN TOTAL,TP 7.2 g/dl (6.4-8.2); SODIUM,NA 142 mEq/L (136-145)
[2022-10-13 00:14] LABS: BACTERIA,URINE MODERATE /hpf (FEW); MUCUS,URINE NOT SEEN /hpf (FEW); RBC,URINE 0-5 /hpf (0-5); SQUAMOUS EPITHELIAL CELLS,UR 0-5 /hpf (0-5); WBC CLUMPS,URINE FEW /hpf (NOT SEEN); WBC,URINE 40-50 /hpf (0-5)
[2022-10-13] MEDS ORDERED: Levofloxacin 250 MG Tab PO SCH (02:45)
[2022-10-13 03:49] VITALS: BP 128/69; PULSE 81
== END 2022-10-13 03:32 | disposition home or self-care (01) ==
LOC: JD.ED 22:23
DX: T83.511A Infection and inflammatory reaction due to indwelling urethral catheter, initial encounter (principal); I48.91 Unspecified atrial fibrillation; I25.10 Atherosclerotic heart disease of native coronary artery without angina pectoris; I50.9 Heart failure, unspecified; E78.00 Pure hypercholesterolemia, unspecified; K21.9 Gastro-esophageal reflux disease without esophagitis; E03.9 Hypothyroidism, unspecified; Z79.01 Long term (current) use of anticoagulants; Z79.899 Other long term (current) drug therapy
CPT/HCPCS: 36415; 51702; 80053; 81001; 85025; 87086; 87088; 87186; 99283; A9270

== ENCOUNTER 2022-10-23 19:29 | Emergency (ER) | payer MEDICARE, BC ==
[2022-10-23 21:08] VITALS: BP 134/80; PULSE 59
== END 2022-10-23 21:05 | disposition home or self-care (01) ==
LOC: JD.ED 19:29
DX: T83.098A Other mechanical complication of other urinary catheter, initial encounter (principal); I48.91 Unspecified atrial fibrillation; I25.10 Atherosclerotic heart disease of native coronary artery without angina pectoris; I11.0 Hypertensive heart disease with heart failure; I50.9 Heart failure, unspecified; E78.00 Pure hypercholesterolemia, unspecified; I25.2 Old myocardial infarction; K21.9 Gastro-esophageal reflux disease without esophagitis; Z95.0 Presence of cardiac pacemaker; Z88.8 Allergy status to other drugs, medicaments and biological substances; Z79.899 Other long term (current) drug therapy; Z79.01 Long term (current) use of anticoagulants; Z87.891 Personal history of nicotine dependence
CPT/HCPCS: 99283

== ENCOUNTER 2023-01-16 14:26 | Inpatient (IN) | payer MEDICARE, BC ==
[2023-01-16] MEDS ORDERED: Metoclopramide 10 MG/2 ML SDV IVPUSH ONE (14:56)
[2023-01-16] MEDS ORDERED: Dextrose 5%-Lactated Ringers 1,000 ML IV SCH (15:00)
[2023-01-16 15:14] LABS: BASOPHILS PERCENT AUTO 0.1 % (0.0-1.0); EOSINOPHILS ABSOLUTE AUTO 0.1 K/mm3 (0.0-0.4); EOSINOPHILS PERCENT AUTO 0.5 % (0.0-6.0); HEMATOCRIT 49.1 % (37.0-47.0); HEMOGLOBIN 16.1 gm/dl (12.0-16.0); IMMATURE GRAN ABSOLUTE AUTO 0.12 K/mm3 (0.00-0.05); IMMATURE GRAN PERCENT AUTO 0.6 % (0.0-0.4); LYMPHOCYTES ABSOLUTE AUTO 0.4 K/mm3 (1.0-4.8); LYMPHOCYTES PERCENT AUTO 2.2 % (24.0-44.0); MEAN CORPUSCULAR HEMOGLOBIN 32.5 pg (28.0-32.0); MEAN CORPUSCULAR HGB CONC 32.8 g/dl (32.0-36.0); MEAN PLATELET VOLUME 10.3 fl (9.4-12.3); MONOCYTES ABSOLUTE AUTO 2.5 K/mm3 (0.0-0.8); MONOCYTES PERCENT AUTO 12.8 % (0.0-8.0); NEUTROPHILS ABSOLUTE AUTO 16.1 K/mm3 (1.8-7.7); NEUTROPHILS PERCENT AUTO 83.8 % (41.0-71.0); PLATELET COUNT,PLT 233 K/mm3 (150-400); RED BLOOD CELL COUNT 4.96 M/mm3 (4.10-5.30); WHITE BLOOD CELL COUNT,WBC 19.22 K/mm3 (3.9-11.3)
[2023-01-16 15:37] LABS: INR 1.02; PROTHROMBIN TIME 10.9 SECONDS (9.7-12.0)
[2023-01-16 15:38] LABS: PTT,PARTIAL THROMBOPLSTIN TIME 23.9 SECONDS (21.7-31.4)
[2023-01-16 15:41] LABS: SLIDE REVIEW ABNORMAL SMEAR
[2023-01-16 15:46] LABS: A/G RATIO 0.6 (1-2); ALBUMIN 2.5 g/dl (3.4-5.0); ANION GAP 21.3 (5-15); BILIRUBIN TOTAL 0.9 mg/dL (0.2-1.0); BUN/CREATININE RATIO 15.6 (14-18); CALCIUM 8.9 mg/dL (8.5-10.1); CREATININE 2.7 mg/dL (0.55-1.02); EST CRCL DRUG DOSING (CG) 13.17 mL/min; POTASSIUM,K 4.3 mEq/L (3.5-5.1); PROTEIN TOTAL,TP 6.5 g/dl (6.4-8.2)
[2023-01-16 15:54] LABS: DIGOXIN 0.4 ng/mL (0.9-2.0); TSH 12.351 uIU/mL (0.358-3.74)
[2023-01-16 16:00] LABS: C-REACTIVE PROTEIN 33.7 mg/dL (<1.0)
[2023-01-16 16:04] LABS: APPEARANCE,URINE CLOUDY (Clear); BILIRUBIN,URINE 2+ (Negative); COLOR,URINE DARK YELLOW (Yellow); GLUCOSE,URINE NEGATIVE (Negative); KETONES,URINE NEGATIVE (Negative); LEUKOCYTE ESTERASE,URINE NEGATIVE (Negative); NITRITE,URINE NEGATIVE (Negative); OCCULT BLOOD,URINE NEGATIVE (Negative); PROTEIN,URINE 2+ (Negative)
[2023-01-16 16:28] LABS: RBC,URINE 0-5 /hpf (0-5); RENAL EPITHELIAL CELLS,URINE 0-5 /hpf (0-5); WBC,URINE 0-5 /hpf (0-5)
[2023-01-16 16:29] LABS: AMORPHOUS SEDIMENT,URINE FEW /hpf (NOT SEEN); BACTERIA,URINE MODERATE /hpf (FEW); FINE GRANULAR CASTS,URINE 0-5 /lpf (0-5); MUCUS,URINE FEW /hpf (FEW)
[2023-01-16] MEDS ORDERED: Sodium Chloride 0.9% 1,000 ML IV ONE (16:45)
[2023-01-16] MEDS: Sodium Chloride 0.9% 1,000 ML IV SCH (17:16)
[2023-01-16] MEDS ORDERED: oxyCODONE 5 MG Tab PO PRN (17:21)
[2023-01-16] MEDS ORDERED: Heparin Sodium 5,000 Units/ML Vial SUBCUT SCH (17:30)
[2023-01-16 18:21] LABS: LACTIC ACID 1.5 mmol/L (0.4-2.0)
[2023-01-16] MEDS ORDERED: Carboxymethylcellulose Sodium 1% Ophth Gel 15 ML Bottle EYEBOTH PRN (18:22)
[2023-01-16] MEDS ORDERED: Furosemide 20 MG Tab PO PRN (18:22)
[2023-01-16] MEDS ORDERED: Potassium Chloride 10 MEQ Tab.ER PO PRN (18:22)
[2023-01-16] MEDS: Levothyroxine 75 MCG Tab PO SCH (21:20)
[2023-01-16] MEDS: Vancomycin 125 MG Cap PO SCH (21:22)
[2023-01-16] MEDS: Heparin Sodium 5,000 Units/ML Vial SUBCUT SCH (21:27)
[2023-01-16] MEDS ORDERED: traZODone 50 MG Tab PO ONE (22:02)
[2023-01-17] MEDS: Sodium Chloride 0.9% 1,000 ML IV SCH ×3 (03:15→23:41)
[2023-01-17] MEDS: Acetaminophen 325 MG Tab PO PRN ×2 (03:34→21:04)
[2023-01-17 05:38] LABS: BASOPHILS PERCENT AUTO 0.1 % (0.0-1.0); EOSINOPHILS PERCENT AUTO 0.2 % (0.0-6.0); HEMATOCRIT 45.5 % (37.0-47.0); IMMATURE GRAN ABSOLUTE AUTO 0.11 K/mm3 (0.00-0.05); IMMATURE GRAN PERCENT AUTO 0.6 % (0.0-0.4); LYMPHOCYTES ABSOLUTE AUTO 0.5 K/mm3 (1.0-4.8); LYMPHOCYTES PERCENT AUTO 2.7 % (24.0-44.0); MEAN CORPUSCULAR HEMOGLOBIN 32.3 pg (28.0-32.0); MEAN CORPUSCULAR VOLUME 98.1 fl (83.0-99.0); MEAN PLATELET VOLUME 10.8 fl (9.4-12.3); MONOCYTES ABSOLUTE AUTO 2.3 K/mm3 (0.0-0.8); MONOCYTES PERCENT AUTO 12.7 % (0.0-8.0); NEUTROPHILS ABSOLUTE AUTO 14.8 K/mm3 (1.8-7.7); NEUTROPHILS PERCENT AUTO 83.7 % (41.0-71.0); PLATELET COUNT,PLT 226 K/mm3 (150-400); RED BLOOD CELL COUNT 4.64 M/mm3 (4.10-5.30); WHITE BLOOD CELL COUNT,WBC 17.73 K/mm3 (3.9-11.3)
[2023-01-17 05:47] LABS: A/G RATIO 0.6 (1-2); ALBUMIN 1.8 g/dl (3.4-5.0); ANION GAP 14.9 (5-15); BILIRUBIN TOTAL 0.5 mg/dL (0.2-1.0); CALCIUM 7.7 mg/dL (8.5-10.1); CREATININE 2.5 mg/dL (0.55-1.02); EST CRCL DRUG DOSING (CG) 14.22 mL/min; MAGNESIUM 1.9 mg/dL (1.8-2.4); POTASSIUM,K 3.9 mEq/L (3.5-5.1)
[2023-01-17] MEDS: Heparin Sodium 5,000 Units/ML Vial SUBCUT SCH ×3 (06:06→21:04)
[2023-01-17] MEDS: Levothyroxine 75 MCG Tab PO SCH (06:07)
[2023-01-17 06:11] LABS: SLIDE REVIEW ABNORMAL SMEAR
[2023-01-17] MEDS: Rosuvastatin 10 MG Tab PO SCH (09:20)
[2023-01-17] MEDS: Clopidogrel 75 MG Tab PO SCH (09:20)
[2023-01-17] MEDS: Pantoprazole 40 MG Tab.CR PO SCH (09:20)
[2023-01-17] MEDS: Cyanocobalamin (Vitamin B12) 1,000 MCG Tab PO SCH (09:21)
[2023-01-17] MEDS: Aspirin 81 MG Tab.EC PO SCH (09:21)
[2023-01-17] MEDS: Folic Acid 1 MG Tab PO SCH (09:21)
[2023-01-17] MEDS: Spironolactone 25 MG Tab PO SCH (09:21)
[2023-01-17] MEDS: Vancomycin 125 MG Cap PO SCH ×4 (09:21→21:04)
[2023-01-17] MEDS: Metoprolol Succinate 25 MG Tab.ER PO SCH (09:22)
[2023-01-17] MEDS: Digoxin 125 MCG Tab PO SCH (09:28)
[2023-01-17] MEDS: Sertraline 50 MG Tab PO SCH (17:10)
[2023-01-17] MEDS: Ondansetron 4 MG Tab.DIS PO PRN (18:15)
[2023-01-17] MEDS: Simethicone 80 MG Tab.Chew PO PRN (21:04)
[2023-01-17] MEDS: Melatonin 3 MG Tab PO PRN (21:04)
[2023-01-18] MEDS: Heparin Sodium 5,000 Units/ML Vial SUBCUT SCH ×4 (05:09→21:00)
[2023-01-18] MEDS: Levothyroxine 50 MCG Tab PO SCH ×2 (05:10→06:03)
[2023-01-18 05:30] LABS: BASOPHILS PERCENT AUTO 0.1 % (0.0-1.0); EOSINOPHILS PERCENT AUTO 0.1 % (0.0-6.0); HEMATOCRIT 47.4 % (37.0-47.0); HEMOGLOBIN 15.6 gm/dl (12.0-16.0); IMMATURE GRAN ABSOLUTE AUTO 0.22 K/mm3 (0.00-0.05); IMMATURE GRAN PERCENT AUTO 1.1 % (0.0-0.4); LYMPHOCYTES ABSOLUTE AUTO 0.6 K/mm3 (1.0-4.8); LYMPHOCYTES PERCENT AUTO 3.1 % (24.0-44.0); MEAN CORPUSCULAR HEMOGLOBIN 31.5 pg (28.0-32.0); MEAN CORPUSCULAR HGB CONC 32.9 g/dl (32.0-36.0); MEAN CORPUSCULAR VOLUME 95.6 fl (83.0-99.0); MEAN PLATELET VOLUME 10.2 fl (9.4-12.3); MONOCYTES ABSOLUTE AUTO 2.1 K/mm3 (0.0-0.8); MONOCYTES PERCENT AUTO 10.4 % (0.0-8.0); NEUTROPHILS ABSOLUTE AUTO 16.8 K/mm3 (1.8-7.7); NEUTROPHILS PERCENT AUTO 85.2 % (41.0-71.0); PLATELET COUNT,PLT 240 K/mm3 (150-400); RED BLOOD CELL COUNT 4.96 M/mm3 (4.10-5.30); WHITE BLOOD CELL COUNT,WBC 19.66 K/mm3 (3.9-11.3)
[2023-01-18 06:11] LABS: A/G RATIO 0.5 (1-2); ALBUMIN 1.7 g/dl (3.4-5.0); ANION GAP 16.4 (5-15); BILIRUBIN TOTAL 0.3 mg/dL (0.2-1.0); BUN/CREATININE RATIO 18.2 (14-18); CREATININE 2.8 mg/dL (0.55-1.02); EST CRCL DRUG DOSING (CG) 12.7 mL/min; MAGNESIUM 1.9 mg/dL (1.8-2.4); POTASSIUM,K 4.4 mEq/L (3.5-5.1); PROTEIN TOTAL,TP 4.9 g/dl (6.4-8.2)
[2023-01-18 06:18] LABS: SLIDE REVIEW ABNORMAL SMEAR
[2023-01-18 06:38] LABS: CALCIUM 7.5 mg/dL (8.5-10.1)
[2023-01-18] MEDS: Metoprolol Succinate 25 MG Tab.ER PO SCH (08:17)
[2023-01-18] MEDS: Folic Acid 1 MG Tab PO SCH (08:17)
[2023-01-18] MEDS: Clopidogrel 75 MG Tab PO SCH (08:17)
[2023-01-18] MEDS: Vancomycin 125 MG Cap PO SCH ×5 (08:17→20:40)
[2023-01-18] MEDS: Cyanocobalamin (Vitamin B12) 1,000 MCG Tab PO SCH (08:17)
[2023-01-18] MEDS: Digoxin 125 MCG Tab PO SCH (08:18)
[2023-01-18] MEDS: Pantoprazole 40 MG Tab.CR PO SCH (08:18)
[2023-01-18] MEDS: Spironolactone 25 MG Tab PO SCH (08:18)
[2023-01-18] MEDS: Aspirin 81 MG Tab.EC PO SCH (08:18)
[2023-01-18] MEDS: Rosuvastatin 10 MG Tab PO SCH (08:18)
[2023-01-18] MEDS: Sodium Chloride 0.9% 1,000 ML IV SCH (08:19)
[2023-01-18] MEDS ORDERED: Potassium Chloride 20 MEQ Tab.ER PO PRN (09:33)
[2023-01-18] MEDS: Ondansetron 4 MG Tab.DIS PO PRN (09:56)
[2023-01-18] MEDS: Simethicone 80 MG Tab.Chew PO PRN ×2 (09:56→17:12)
[2023-01-18] MEDS: D5 1/2 NS w/ 20 mEq/L KCl 1,000 ML IV SCH ×2 (10:46→19:42)
[2023-01-18] MEDS: Sertraline 50 MG Tab PO SCH (17:12)
[2023-01-18] MEDS: Saccharomyces Boulardii (Probiotic) 250 MG Cap PO SCH ×2 (19:50→20:40)
[2023-01-18] MEDS: Melatonin 3 MG Tab PO PRN (19:55)
[2023-01-19] MEDS: D5 1/2 NS w/ 20 mEq/L KCl 1,000 ML IV SCH (04:21)
[2023-01-19] MEDS: Heparin Sodium 5,000 Units/ML Vial SUBCUT SCH (06:07)
[2023-01-19] MEDS: Levothyroxine 75 MCG Tab PO SCH (06:07)
[2023-01-19 06:25] LABS: BASOPHILS PERCENT AUTO 0.1 % (0.0-1.0); HEMATOCRIT 46.4 % (37.0-47.0); IMMATURE GRAN ABSOLUTE AUTO 0.33 K/mm3 (0.00-0.05); IMMATURE GRAN PERCENT AUTO 1.6 % (0.0-0.4); LYMPHOCYTES ABSOLUTE AUTO 0.9 K/mm3 (1.0-4.8); LYMPHOCYTES PERCENT AUTO 4.1 % (24.0-44.0); MEAN CORPUSCULAR HEMOGLOBIN 31.1 pg (28.0-32.0); MEAN CORPUSCULAR HGB CONC 32.3 g/dl (32.0-36.0); MEAN CORPUSCULAR VOLUME 96.3 fl (83.0-99.0); MONOCYTES ABSOLUTE AUTO 2.2 K/mm3 (0.0-0.8); MONOCYTES PERCENT AUTO 10.4 % (0.0-8.0); NEUTROPHILS ABSOLUTE AUTO 17.9 K/mm3 (1.8-7.7); NEUTROPHILS PERCENT AUTO 83.8 % (41.0-71.0); PLATELET COUNT,PLT 263 K/mm3 (150-400); RED BLOOD CELL COUNT 4.82 M/mm3 (4.10-5.30); WHITE BLOOD CELL COUNT,WBC 21.29 K/mm3 (3.9-11.3)
[2023-01-19 06:57] LABS: A/G RATIO 0.6 (1-2); ALBUMIN 1.9 g/dl (3.4-5.0); BILIRUBIN TOTAL 0.3 mg/dL (0.2-1.0); CALCIUM 7.4 mg/dL (8.5-10.1); EST CRCL DRUG DOSING (CG) 11.85 mL/min; PROTEIN TOTAL,TP 5.2 g/dl (6.4-8.2)
[2023-01-19] MEDS ORDERED: Lactated Ringers 500 ML IV ONE (07:06)
[2023-01-19] MEDS ORDERED: Lactated Ringers 1,000 ML IV SCH (07:15)
[2023-01-19] MEDS ORDERED: metroNIDAZOLE/Normal Saline 500 MG in Premix Bag 1 BAG IV SCH (09:00)
[2023-01-19] MEDS: Folic Acid 1 MG Tab PO SCH (09:24)
[2023-01-19] MEDS: Clopidogrel 75 MG Tab PO SCH (09:25)
[2023-01-19] MEDS: Aspirin 81 MG Tab.EC PO SCH (09:25)
[2023-01-19] MEDS: Metoprolol Succinate 25 MG Tab.ER PO SCH (09:26)
[2023-01-19] MEDS: Vancomycin 125 MG Cap PO SCH (09:26)
[2023-01-19] MEDS: Rosuvastatin 10 MG Tab PO SCH (09:27)
[2023-01-19] MEDS: Pantoprazole 40 MG Tab.CR PO SCH (09:27)
[2023-01-19] MEDS: Saccharomyces Boulardii (Probiotic) 250 MG Cap PO SCH (09:27)
[2023-01-19] MEDS: Cyanocobalamin (Vitamin B12) 1,000 MCG Tab PO SCH (09:27)
[2023-01-19] MEDS: Digoxin 125 MCG Tab PO SCH (09:29)
[2023-01-19] MEDS: Acetaminophen 325 MG Tab PO PRN (10:20)
[2023-01-19 11:22] VITALS: BP 118/62; PULSE 96
[2023-01-19 11:55] LABS: SLIDE REVIEW ABNORMAL SMEAR
== END 2023-01-19 11:15 | DRG 372 ==
LOC: JD.ED 14:26 → JD.MS 18:33
PROVIDERS: ADMIT Internal Medicine; ATTEND Internal Medicine
DX: A41.9 Sepsis, unspecified organism (principal); R19.7 Diarrhea, unspecified; E86.9 Volume depletion, unspecified; A04.72 Enterocolitis due to Clostridium difficile, not specified as recurrent; D72.829 Elevated white blood cell count, unspecified; E87.20 Acidosis, unspecified; N31.2 Flaccid neuropathic bladder, not elsewhere classified; I13.0 Hypertensive heart and chronic kidney disease with heart failure and stage 1 through stage 4 chronic kidney disease, or unspecified chronic kidney disease; J90 Pleural effusion, not elsewhere classified; I11.0 Hypertensive heart disease with heart failure; N17.9 Acute kidney failure, unspecified; N39.0 Urinary tract infection, site not specified; R18.8 Other ascites; N18.4 Chronic kidney disease, stage 4 (severe); I50.9 Heart failure, unspecified; E86.0 Dehydration; Z79.899 Other long term (current) drug therapy; Z79.82 Long term (current) use of aspirin; Z66 Do not resuscitate; I48.91 Unspecified atrial fibrillation; I25.10 Atherosclerotic heart disease of native coronary artery without angina pectoris; F41.9 Anxiety disorder, unspecified; F32.A Depression, unspecified; E03.9 Hypothyroidism, unspecified; K21.9 Gastro-esophageal reflux disease without esophagitis; N31.9 Neuromuscular dysfunction of bladder, unspecified; Z96.0 Presence of urogenital implants; E78.00 Pure hypercholesterolemia, unspecified; I25.2 Old myocardial infarction; Z95.0 Presence of cardiac pacemaker; Z79.01 Long term (current) use of anticoagulants; Z97.3 Presence of spectacles and contact lenses; Z87.19 Personal history of other diseases of the digestive system; Z79.890 Hormone replacement therapy; Z90.89 Acquired absence of other organs; Z98.890 Other specified postprocedural states; Z98.1 Arthrodesis status; Z87.891 Personal history of nicotine dependence; Z88.1 Allergy status to other antibiotic agents; Z88.8 Allergy status to other drugs, medicaments and biological substances; Z87.442 Personal history of urinary calculi
CPT/HCPCS: 36415; 71045; 80053; 80162; 81001; 82009; 83605 ×2; 83880; 84443; 84484; 85025; 85610; 85730; 86140; 93005; 96360; 96361; 99285; J7030 ×2; J7121; 74176; 74176-26; 83735; 87045; 87046; 87324; 87493; 87899; 93010; 94760; 94761; 97162-GP; 97530-GP; A9270-GY; J1644; J3480; J3490; J7120

== ENCOUNTER 2023-09-13 14:54 | Inpatient (IN) | payer MEDICARE, BC ==
[2023-09-13] MEDS: Sodium Chloride 0.9% 10 ML Syringe FLUSH PRN (15:40)
[2023-09-13 15:56] LABS: BASOPHILS ABSOLUTE AUTO 0.1 K/mm3 (0.0-0.2); BASOPHILS PERCENT AUTO 0.7 % (0.0-1.0); HEMATOCRIT 42.7 % (37.0-47.0); IMMATURE GRAN ABSOLUTE AUTO 0.04 K/mm3 (0.00-0.05); IMMATURE GRAN PERCENT AUTO 0.5 % (0.0-0.4); LYMPHOCYTES ABSOLUTE AUTO 0.5 K/mm3 (1.0-4.8); LYMPHOCYTES PERCENT AUTO 5.7 % (24.0-44.0); MEAN CORPUSCULAR HEMOGLOBIN 29.5 pg (28.0-32.0); MEAN CORPUSCULAR HGB CONC 30.4 g/dl (32.0-36.0); MEAN PLATELET VOLUME 10.1 fl (9.4-12.3); MONOCYTES ABSOLUTE AUTO 0.4 K/mm3 (0.0-0.8); MONOCYTES PERCENT AUTO 4.5 % (0.0-8.0); NEUTROPHILS ABSOLUTE AUTO 7.1 K/mm3 (1.8-7.7); NEUTROPHILS PERCENT AUTO 88.6 % (41.0-71.0); PLATELET COUNT,PLT 158 K/mm3 (150-400); WHITE BLOOD CELL COUNT,WBC 8.02 K/mm3 (3.9-11.3)
[2023-09-13 16:16] LABS: APPEARANCE,URINE CLEAR (Clear); BILIRUBIN,URINE 1+ (Negative); COLOR,URINE YELLOW (Yellow); GLUCOSE,URINE NEGATIVE (Negative); KETONES,URINE NEGATIVE (Negative); LEUKOCYTE ESTERASE,URINE 1+ (Negative); NITRITE,URINE NEGATIVE (Negative); OCCULT BLOOD,URINE 3+ (Negative); PH,URINE 5.5 (5.0-8.0); PROTEIN,URINE 3+ (Negative); UROBILINOGEN,URINE 0.2 (0.2-1.0)
[2023-09-13 16:25] LABS: BACTERIA,URINE MODERATE /hpf (FEW); MUCUS,URINE FEW /hpf (FEW)
[2023-09-13 16:34] LABS: ALBUMIN 3.6 g/dl (3.4-5.0); ANION GAP 19.4 (5-15); BILIRUBIN TOTAL 0.7 mg/dL (0.2-1.0); BUN/CREATININE RATIO 23.1 (14-18); CREATININE 1.3 mg/dL (0.55-1.02); EST CRCL DRUG DOSING (CG) 27.35 mL/min; POTASSIUM,K 5.4 mEq/L (3.5-5.1); PROTEIN TOTAL,TP 7.3 g/dl (6.4-8.2)
[2023-09-13] MEDS: Furosemide 40 MG/4 ML VIAL IVPUSH ONE (16:45)
[2023-09-13 19:08] LABS: CORONAVIRUS COVID-19 NAA NEGATIVE (NEGATIVE); INFLUENZA A NAA NEGATIVE (NEGATIVE); RESPIRATORY SYNCYTIAL VIR NAA NEGATIVE (NEGATIVE)
[2023-09-13] MEDS ORDERED: Potassium Chloride 10 MEQ Tab.ER PO PRN (20:39)
[2023-09-13] MEDS ORDERED: Acetaminophen 325 MG Tab PO PRN (20:39)
[2023-09-13] MEDS ORDERED: Loperamide 2 MG Cap PO PRN (20:39)
[2023-09-13] MEDS: traMADol 50 MG Tab PO PRN (20:58)
[2023-09-13] MEDS: Famotidine 20 MG Tab PO SCH (20:58)
[2023-09-13] MEDS: Vancomycin 125 MG Cap PO ONE (20:58)
[2023-09-13] MEDS: Amoxicillin/Clavulanate K 875-125 MG Tab PO ONE (20:58)
[2023-09-13] MEDS: Melatonin 3 MG Tab PO PRN (20:58)
[2023-09-14 04:38] LABS: BASOPHILS PERCENT AUTO 0.5 % (0.0-1.0); EOSINOPHILS ABSOLUTE AUTO 0.1 K/mm3 (0.0-0.4); EOSINOPHILS PERCENT AUTO 1.4 % (0.0-6.0); HEMATOCRIT 36.9 % (37.0-47.0); HEMOGLOBIN 11.4 gm/dl (12.0-16.0); IMMATURE GRAN ABSOLUTE AUTO 0.02 K/mm3 (0.00-0.05); IMMATURE GRAN PERCENT AUTO 0.3 % (0.0-0.4); LYMPHOCYTES ABSOLUTE AUTO 1.1 K/mm3 (1.0-4.8); LYMPHOCYTES PERCENT AUTO 17.7 % (24.0-44.0); MEAN CORPUSCULAR HEMOGLOBIN 29.8 pg (28.0-32.0); MEAN CORPUSCULAR HGB CONC 30.9 g/dl (32.0-36.0); MEAN CORPUSCULAR VOLUME 96.6 fl (83.0-99.0); MEAN PLATELET VOLUME 10.6 fl (9.4-12.3); MONOCYTES ABSOLUTE AUTO 0.8 K/mm3 (0.0-0.8); MONOCYTES PERCENT AUTO 12.5 % (0.0-8.0); NEUTROPHILS ABSOLUTE AUTO 4.3 K/mm3 (1.8-7.7); NEUTROPHILS PERCENT AUTO 67.6 % (41.0-71.0); PLATELET COUNT,PLT 126 K/mm3 (150-400); RED BLOOD CELL COUNT 3.82 M/mm3 (4.10-5.30); WHITE BLOOD CELL COUNT,WBC 6.33 K/mm3 (3.9-11.3)
[2023-09-14 05:05] LABS: A/G RATIO 0.9 (1-2); BILIRUBIN TOTAL 0.4 mg/dL (0.2-1.0); BUN/CREATININE RATIO 24.2 (14-18); CREATININE 1.2 mg/dL (0.55-1.02); EST CRCL DRUG DOSING (CG) 29.63 mL/min; PROTEIN TOTAL,TP 6.3 g/dl (6.4-8.2)
[2023-09-14] MEDS: Furosemide 40 MG/4 ML VIAL IVPUSH ONE ×2 (06:06→22:58)
[2023-09-14] MEDS: Vitamin B Complex With Vitamin C Cap PO SCH (06:06)
[2023-09-14] MEDS: Midodrine 5 MG Tab PO SCH (06:06)
[2023-09-14] MEDS ORDERED: Carboxymethylcellulose Sodium 1% Ophth Gel 15 ML Bottle EYEBOTH PRN (06:19)
[2023-09-14] MEDS: Levothyroxine 25 MCG Tab PO SCH (07:11)
[2023-09-14] MEDS: Furosemide 40 MG/4 ML VIAL IVPUSH SCH (09:09)
[2023-09-14] MEDS ORDERED: Albuterol/Ipratropium 3.0-0.5 MG/3 ML Neb Soln NEB PRN (09:11)
[2023-09-14] MEDS: Albuterol/Ipratropium 3.0-0.5 MG/3 ML Neb Soln ONE (09:23)
[2023-09-14] MEDS: Amoxicillin/Clavulanate K 875-125 MG Tab PO SCH (09:27)
[2023-09-14] MEDS: Losartan 25 MG Tab PO SCH (09:30)
[2023-09-14] MEDS: Spironolactone 25 MG Tab PO SCH (09:43)
[2023-09-14] MEDS: Digoxin 125 MCG Tab PO SCH (09:45)
[2023-09-14 09:47] LABS: BASE EXCESS ARTERIAL -4.5 (-2-2.0); BICARBONATE,ARTERIAL 23.6 meq/L (22.0-26.0); O2 SATURATION ARTERIAL 93.4 % (96.0-97.0); PCO2 ARTERIAL 59.2 mmHg (35.0-45.0)
[2023-09-14 10:03] LABS: TSH 1.293 uIU/mL (0.358-3.74)
[2023-09-14 10:50] LABS: BASE EXCESS ARTERIAL -3.9 (-2-2.0); BICARBONATE,ARTERIAL 22.8 meq/L (22.0-26.0); O2 SATURATION ARTERIAL 93.9 % (96.0-97.0); PCO2 ARTERIAL 51.4 mmHg (35.0-45.0)
[2023-09-14] MEDS: Folic Acid 1 MG Tab PO SCH (12:51)
[2023-09-14] MEDS: Saccharomyces Boulardii (Probiotic) 250 MG Cap PO SCH (12:51)
[2023-09-14] MEDS: Ferrous Sulfate 324 MG Tab.EC PO SCH (12:51)
[2023-09-14] MEDS: Clopidogrel 75 MG Tab PO SCH (12:52)
[2023-09-14] MEDS: prednisoLONE Acetate 1% Ophth Susp 5 ML Bottle EYERT SCH (12:52)
[2023-09-14] MEDS: Aspirin 81 MG Tab.EC PO SCH (12:52)
[2023-09-14] MEDS: Vitamin B6-pyridOXINE 50 MG Tab PO SCH (12:52)
[2023-09-14] MEDS: Cyanocobalamin (Vitamin B12) 1,000 MCG Tab PO SCH (12:52)
[2023-09-14] MEDS: Empagliflozin 10 MG Tab PO SCH (12:52)
[2023-09-14] MEDS: Sertraline 50 MG Tab PO SCH (12:53)
[2023-09-14] MEDS: Enoxaparin 30 MG/0.3 ML Syringe SUBCUT SCH (13:07)
[2023-09-14] MEDS: NEPAFENAC EYELF SCH (13:35)
[2023-09-14] MEDS: Vancomycin 125 MG Cap PO SCH (13:35)
[2023-09-14] MEDS ORDERED: Furosemide 40 MG/4 ML VIAL IVPUSH SCH (14:00)
[2023-09-14] MEDS ORDERED: Levothyroxine 50 MCG Tab PO SCH (20:39)
[2023-09-15 05:05] LABS: BASE EXCESS ARTERIAL 0.4 (-2-2.0); BICARBONATE,ARTERIAL 25.9 meq/L (22.0-26.0); O2 SATURATION ARTERIAL 94.1 % (96.0-97.0); PCO2 ARTERIAL 48.4 mmHg (35.0-45.0)
[2023-09-15] MEDS ORDERED: Metoprolol Tartrate 25 MG Tab PO SCH (08:15)
[2023-09-15 09:00] LABS: ANION GAP 12.1 (5-15); POTASSIUM,K 3.1 mEq/L (3.5-5.1)
[2023-09-15 09:01] LABS: BUN/CREATININE RATIO 26.4 (14-18); CALCIUM 8.8 mg/dL (8.5-10.1); CREATININE 1.1 mg/dL (0.55-1.02); EST CRCL DRUG DOSING (CG) 32.32 mL/min; MAGNESIUM 2.1 mg/dL (1.8-2.4)
[2023-09-15] MEDS: Metoprolol Succinate 25 MG Tab.ER PO SCH (09:20)
[2023-09-15 10:04] LABS: SLIDE REVIEW NORMAL SMEAR
[2023-09-15] MEDS: Potassium Chloride 10 MEQ in Premix Bag 1 BAG IV ONE ×2 (14:19→15:52)
[2023-09-15 17:48] VITALS: BP 106/79; PULSE 74
[2023-09-15] MEDS ORDERED: Furosemide 40 MG/4 ML VIAL IVPUSH SCH (21:00)
[2023-09-16] MEDS ORDERED: Enoxaparin 40 MG/0.4 ML Syringe SUBCUT SCH (09:00)
[2023-09-20 10:30] LABS: HEMATOCRIT 37.3 % (37.0-47.0); HEMOGLOBIN 11.4 gm/dl (12.0-16.0)
[2023-09-20 10:31] LABS: LYMPHOCYTES PERCENT AUTO 7.2 % (24.0-44.0); MEAN CORPUSCULAR HGB CONC 30.6 g/dl (32.0-36.0); MEAN CORPUSCULAR VOLUME 98.2 fl (83.0-99.0); MEAN PLATELET VOLUME 10.4 fl (9.4-12.3); NEUTROPHILS PERCENT AUTO 84.2 % (41.0-71.0); PLATELET COUNT,PLT 118 K/mm3 (150-400)
[2023-09-20 10:32] LABS: BASOPHILS PERCENT AUTO 0.4 % (0.0-1.0); EOSINOPHILS PERCENT AUTO 0.1 % (0.0-6.0); IMMATURE GRAN PERCENT AUTO 0.4 % (0.0-0.4); LYMPHOCYTES ABSOLUTE AUTO 0.6 K/mm3 (1.0-4.8); MONOCYTES PERCENT AUTO 7.7 % (0.0-8.0); NEUTROPHILS ABSOLUTE AUTO 6.9 K/mm3 (1.8-7.7)
[2023-09-20 10:33] LABS: IMMATURE GRAN ABSOLUTE AUTO 0.03 K/mm3 (0.00-0.05); MONOCYTES ABSOLUTE AUTO 0.6 K/mm3 (0.0-0.8)
[2023-09-20 10:40] LABS: WHITE BLOOD CELL COUNT,WBC 8.19 K/mm3 (3.9-11.3)
== END 2023-09-15 18:37 | DRG 291 ==
LOC: JD.ED 14:54 → JD.MS 19:06
PROVIDERS: ADMIT Student in an Organized Health Care Education/Training Program; ATTEND Student in an Organized Health Care Education/Training Program
PROC: 4A133R1 Monitoring of Arterial Saturation, Peripheral, Percutaneous Approach (ICD-10-PCS; principal; 2023-09-13)
PROC: 0T2BX0Z Change Drainage Device in Bladder, External Approach (ICD-10-PCS; 2023-09-13)
DX: T83.511A Infection and inflammatory reaction due to indwelling urethral catheter, initial encounter (principal); I13.0 Hypertensive heart and chronic kidney disease with heart failure and stage 1 through stage 4 chronic kidney disease, or unspecified chronic kidney disease; I50.33 Acute on chronic diastolic (congestive) heart failure; J96.21 Acute and chronic respiratory failure with hypoxia; I11.0 Hypertensive heart disease with heart failure; I63.9 Cerebral infarction, unspecified; I61.9 Nontraumatic intracerebral hemorrhage, unspecified; A04.72 Enterocolitis due to Clostridium difficile, not specified as recurrent; L02.214 Cutaneous abscess of groin; N17.9 Acute kidney failure, unspecified; N18.9 Chronic kidney disease, unspecified; Z79.890 Hormone replacement therapy; Z66 Do not resuscitate; I25.10 Atherosclerotic heart disease of native coronary artery without angina pectoris; I42.8 Other cardiomyopathies; H54.7 Unspecified visual loss; E78.00 Pure hypercholesterolemia, unspecified; K21.9 Gastro-esophageal reflux disease without esophagitis; M54.9 Dorsalgia, unspecified; G89.29 Other chronic pain; M19.90 Unspecified osteoarthritis, unspecified site; F41.9 Anxiety disorder, unspecified; F32.A Depression, unspecified; E03.9 Hypothyroidism, unspecified; Z96.649 Presence of unspecified artificial hip joint; Z96.619 Presence of unspecified artificial shoulder joint; I48.0 Paroxysmal atrial fibrillation; I49.5 Sick sinus syndrome; R79.89 Other specified abnormal findings of blood chemistry; G47.00 Insomnia, unspecified; M81.0 Age-related osteoporosis without current pathological fracture; I08.3 Combined rheumatic disorders of mitral, aortic and tricuspid valves; Z95.818 Presence of other cardiac implants and grafts; Z88.8 Allergy status to other drugs, medicaments and biological substances; Z79.82 Long term (current) use of aspirin; Z79.02 Long term (current) use of antithrombotics/antiplatelets; Z79.2 Long term (current) use of antibiotics; Z79.899 Other long term (current) drug therapy; Z90.89 Acquired absence of other organs; Z98.890 Other specified postprocedural states; Z98.1 Arthrodesis status; Z97.8 Presence of other specified devices; Z87.891 Personal history of nicotine dependence; Z95.0 Presence of cardiac pacemaker
CPT/HCPCS: 0241U; 36415; 36600; 70450; 71045; 71046; 80048; 80053; 81001; 82803; 83735; 83880; 84443; 84484; 85025; 87086; 93005; 93306; 94640; 94761; 51702; 93010; 96374; 99285; 99285-25; A9270-GY; J1650; J1940; J3480; J3490; J7620-GY

== ENCOUNTER 2023-09-26 18:38 | Emergency (ER) | payer MEDICARE, BC ==
[2023-09-26 20:07] VITALS: BP 125/78; PULSE 67
== END 2023-09-26 21:17 | disposition home or self-care (01) ==
LOC: JD.ED 18:38
DX: T83.038A Leakage of other urinary catheter, initial encounter (principal); I11.0 Hypertensive heart disease with heart failure; I50.9 Heart failure, unspecified; I25.10 Atherosclerotic heart disease of native coronary artery without angina pectoris; I48.91 Unspecified atrial fibrillation; I25.2 Old myocardial infarction; E78.00 Pure hypercholesterolemia, unspecified; K21.9 Gastro-esophageal reflux disease without esophagitis; E03.9 Hypothyroidism, unspecified; Z79.02 Long term (current) use of antithrombotics/antiplatelets; Z79.899 Other long term (current) drug therapy; Z79.82 Long term (current) use of aspirin; Z88.1 Allergy status to other antibiotic agents; Z88.8 Allergy status to other drugs, medicaments and biological substances
CPT/HCPCS: 51702; 99282

== ENCOUNTER 2023-10-04 14:48 | Emergency (ER) | payer MEDICARE, BC ==
[2023-10-04 17:18] LABS: BASOPHILS PERCENT AUTO 0.5 % (0.0-1.0); EOSINOPHILS ABSOLUTE AUTO 0.2 K/mm3 (0.0-0.4); EOSINOPHILS PERCENT AUTO 1.9 % (0.0-6.0); HEMATOCRIT 46.2 % (37.0-47.0); HEMOGLOBIN 14.2 gm/dl (12.0-16.0); IMMATURE GRAN ABSOLUTE AUTO 0.02 K/mm3 (0.00-0.05); IMMATURE GRAN PERCENT AUTO 0.3 % (0.0-0.4); LYMPHOCYTES PERCENT AUTO 13.1 % (24.0-44.0); MEAN CORPUSCULAR HEMOGLOBIN 29.5 pg (28.0-32.0); MEAN CORPUSCULAR HGB CONC 30.7 g/dl (32.0-36.0); MEAN CORPUSCULAR VOLUME 95.9 fl (83.0-99.0); MEAN PLATELET VOLUME 10.9 fl (9.4-12.3); MONOCYTES ABSOLUTE AUTO 0.5 K/mm3 (0.0-0.8); MONOCYTES PERCENT AUTO 6.2 % (0.0-8.0); NEUTROPHILS ABSOLUTE AUTO 6.2 K/mm3 (1.8-7.7); PLATELET COUNT,PLT 210 K/mm3 (150-400); RED BLOOD CELL COUNT 4.82 M/mm3 (4.10-5.30); WHITE BLOOD CELL COUNT,WBC 7.89 K/mm3 (3.9-11.3)
[2023-10-04 17:27] LABS: A/G RATIO 0.9 (1-2); ALBUMIN 3.8 g/dl (3.4-5.0); ANION GAP 13.5 (5-15); BILIRUBIN TOTAL 0.6 mg/dL (0.2-1.0); BUN/CREATININE RATIO 27.7 (14-18); CALCIUM 9.8 mg/dL (8.5-10.1); CREATININE 1.3 mg/dL (0.55-1.02); EST CRCL DRUG DOSING (CG) 27.35 mL/min; MAGNESIUM 2.3 mg/dL (1.8-2.4); PHOSPHORUS 3.9 mg/dL (2.6-4.7); POTASSIUM,K 3.5 mEq/L (3.5-5.1); PROTEIN TOTAL,TP 8.2 g/dl (6.4-8.2)
[2023-10-04 18:27] LABS: APPEARANCE,URINE CLOUDY (Clear); BILIRUBIN,URINE NEGATIVE (Negative); COLOR,URINE YELLOW (Yellow); GLUCOSE,URINE NEGATIVE (Negative); KETONES,URINE NEGATIVE (Negative); LEUKOCYTE ESTERASE,URINE 3+ (Negative); NITRITE,URINE NEGATIVE (Negative); OCCULT BLOOD,URINE TRACE-LYSED (Negative); PH,URINE >=9.0 (5.0-8.0); PROTEIN,URINE 1+ (Negative); UROBILINOGEN,URINE 0.2 (0.2-1.0)
[2023-10-04 18:55] LABS: AMPHETAMINES SCREEN, URINE NEGATIVE (CUTOFF=500); BARBITURATE SCREEN,URINE NEGATIVE (CUTOFF=200); BENZODIAZEPINES SCREEN,URINE NEGATIVE (CUTOFF=150); BUPRENORPHINE SCREEN,URINE NEGATIVE (CUTOFF=10); METHADONE SCREEN, URINE NEGATIVE (CUTOFF=200); METHAMPHETAMINES SCREEN, URINE NEGATIVE (CUTOFF=500); OXYCODONE SCREEN,URINE NEGATIVE (CUT0FF=100); THC SCREEN,URINE 20 NG/ML NEGATIVE (CUTOFF=50)
[2023-10-04 19:05] LABS: CORONAVIRUS COVID-19 NAA NEGATIVE (NEGATIVE); INFLUENZA A NAA NEGATIVE (NEGATIVE); RESPIRATORY SYNCYTIAL VIR NAA NEGATIVE (NEGATIVE)
[2023-10-04 19:32] LABS: RBC,URINE 0-5 /hpf (0-5); SQUAMOUS EPITHELIAL CELLS,UR 0-5 /hpf (0-5)
[2023-10-04 19:33] LABS: AMORPHOUS SEDIMENT,URINE MODERATE /hpf (NOT SEEN); BACTERIA,URINE MANY /hpf (FEW); MUCUS,URINE FEW /hpf (FEW); TRIPLE PHOSPHATE CRYSTALS,UR MODERATE /hpf
[2023-10-04] MEDS: cefTRIAXone 1 GM in Sodium Chloride 0.9% 100 ML IV ONE (21:00)
[2023-10-04 22:23] VITALS: BP 120/86; PULSE 79
== END 2023-10-04 22:25 | disposition home or self-care (01) ==
LOC: JD.ED 14:48
DX: N30.01 Acute cystitis with hematuria (principal); R53.1 Weakness; I11.0 Hypertensive heart disease with heart failure; I50.9 Heart failure, unspecified; I48.91 Unspecified atrial fibrillation; I25.10 Atherosclerotic heart disease of native coronary artery without angina pectoris; E03.9 Hypothyroidism, unspecified; K21.9 Gastro-esophageal reflux disease without esophagitis; Z88.8 Allergy status to other drugs, medicaments and biological substances; Z79.890 Hormone replacement therapy; Z79.899 Other long term (current) drug therapy
CPT/HCPCS: 0241U; 36415; 70450; 80053; 80306; 80307; 81001; 82947; 83735; 84100; 85025; 87086; 96365; 99285; J3370; J7050; 87088; 87186

== ENCOUNTER 2023-10-08 17:21 | Observation (INO) | payer MEDICARE, BC ==
[2023-10-08] MEDS ORDERED: Albuterol 0.083% 2.5 MG/3 ML Neb Soln NEB PRN (20:27)
[2023-10-08] MEDS ORDERED: Melatonin 3 MG Tab PO PRN (20:27)
[2023-10-08] MEDS ORDERED: Acetaminophen 325 MG Tab PO PRN (20:27)
[2023-10-08] MEDS ORDERED: Ondansetron 4 MG Tab.DIS PO PRN (20:27)
[2023-10-08 21:04] LABS: BASOPHILS PERCENT AUTO 0.5 % (0.0-1.0); EOSINOPHILS ABSOLUTE AUTO 0.1 K/mm3 (0.0-0.4); HEMOGLOBIN 13.2 gm/dl (12.0-16.0); IMMATURE GRAN ABSOLUTE AUTO 0.02 K/mm3 (0.00-0.05); IMMATURE GRAN PERCENT AUTO 0.3 % (0.0-0.4); LYMPHOCYTES PERCENT AUTO 14.7 % (24.0-44.0); MEAN CORPUSCULAR HEMOGLOBIN 29.4 pg (28.0-32.0); MEAN CORPUSCULAR HGB CONC 30.7 g/dl (32.0-36.0); MEAN CORPUSCULAR VOLUME 95.8 fl (83.0-99.0); MEAN PLATELET VOLUME 10.2 fl (9.4-12.3); MONOCYTES ABSOLUTE AUTO 0.4 K/mm3 (0.0-0.8); MONOCYTES PERCENT AUTO 6.8 % (0.0-8.0); NEUTROPHILS ABSOLUTE AUTO 4.9 K/mm3 (1.8-7.7); NEUTROPHILS PERCENT AUTO 75.7 % (41.0-71.0); PLATELET COUNT,PLT 142 K/mm3 (150-400); RED BLOOD CELL COUNT 4.49 M/mm3 (4.10-5.30); WHITE BLOOD CELL COUNT,WBC 6.48 K/mm3 (3.9-11.3)
[2023-10-08 21:25] LABS: ANION GAP 14.3 (5-15); CALCIUM 9.9 mg/dL (8.5-10.1); CREATININE 1.2 mg/dL (0.55-1.02); EST CRCL DRUG DOSING (CG) 29.63 mL/min; POTASSIUM,K 3.3 mEq/L (3.5-5.1); PROTEIN TOTAL,TP 7.7 g/dl (6.4-8.2)
[2023-10-08 21:26] LABS: A/G RATIO 0.9 (1-2); ALBUMIN 3.7 g/dl (3.4-5.0); BILIRUBIN TOTAL 0.7 mg/dL (0.2-1.0)
[2023-10-09 00:40] LABS: APPEARANCE,URINE SLT CLOUDY (Clear); BILIRUBIN,URINE NEGATIVE (Negative); COLOR,URINE YELLOW (Yellow); GLUCOSE,URINE NEGATIVE (Negative); KETONES,URINE NEGATIVE (Negative); LEUKOCYTE ESTERASE,URINE 3+ (Negative); NITRITE,URINE NEGATIVE (Negative); OCCULT BLOOD,URINE 2+ (Negative); PH,URINE 6.5 (5.0-8.0); PROTEIN,URINE 2+ (Negative); UROBILINOGEN,URINE 0.2 (0.2-1.0)
[2023-10-09 00:53] LABS: BACTERIA,URINE MODERATE /hpf (FEW); HYALINE CASTS,URINE 0-5 /lpf (0-5); SQUAMOUS EPITHELIAL CELLS,UR 0-5 /hpf (0-5); WBC,URINE >100 /hpf (0-5)
[2023-10-09 00:54] LABS: MUCUS,URINE NOT SEEN /hpf (FEW); WBC CLUMPS,URINE FEW /hpf (NOT SEEN)
[2023-10-09] MEDS: Potassium Chloride 20 MEQ Tab.ER PO SCH (09:16)
[2023-10-09] MEDS: Sertraline 50 MG Tab PO SCH (09:16)
[2023-10-09] MEDS: atorvaSTATin 20 MG Tab PO SCH (09:17)
[2023-10-09] MEDS: Torsemide 20 MG Tab PO SCH (09:17)
[2023-10-09] MEDS: Saccharomyces Boulardii (Probiotic) 250 MG Cap PO SCH (09:18)
[2023-10-09] MEDS: Vancomycin 125 MG Cap PO SCH (09:18)
[2023-10-09] MEDS: Levothyroxine 75 MCG Tab PO SCH (09:18)
[2023-10-09] MEDS: Vitamin B6-pyridOXINE 50 MG Tab PO SCH (09:18)
[2023-10-09] MEDS: Folic Acid 1 MG Tab PO SCH (09:19)
[2023-10-09] MEDS: Spironolactone 25 MG Tab PO SCH (09:20)
[2023-10-09] MEDS: cefTRIAXone 1 GM in Sodium Chloride 0.9% 100 ML IV SCH (09:21)
[2023-10-09] MEDS: Digoxin 125 MCG Tab PO SCH (09:39)
[2023-10-09] MEDS: Ferrous Sulfate 324 MG Tab.EC PO SCH (09:42)
[2023-10-09] MEDS: Cyanocobalamin (Vitamin B12) 1,000 MCG Tab PO SCH (09:42)
[2023-10-09] MEDS: Midodrine 5 MG Tab PO SCH (11:22)
[2023-10-09] MEDS: Famotidine 20 MG Tab PO SCH (17:26)
[2023-10-09] MEDS: Melatonin 3 MG Tab PO SCH (22:19)
[2023-10-11] MEDS ORDERED: Non-Formulary Medication 1 Each (Alendronate Sodium 70 MG Tablet) PO SCH (07:33)
[2023-10-13 08:33] VITALS: PULSE 62
[2023-10-13 08:36] VITALS: BP 114/75
== END 2023-10-13 13:04 ==
LOC: INTOOBSV 17:21 → JD.MS 17:21
PROVIDERS: ADMIT Family Medicine; ATTEND Internal Medicine
DX: N31.9 Neuromuscular dysfunction of bladder, unspecified (principal); R33.9 Retention of urine, unspecified; B96.4 Proteus (mirabilis) (morganii) as the cause of diseases classified elsewhere; T83.9XXA Unspecified complication of genitourinary prosthetic device, implant and graft, initial encounter; M84.48XA Pathological fracture, other site, initial encounter for fracture; R53.81 Other malaise; R26.2 Difficulty in walking, not elsewhere classified; R53.1 Weakness; D63.1 Anemia in chronic kidney disease; N18.4 Chronic kidney disease, stage 4 (severe); I50.9 Heart failure, unspecified; I48.91 Unspecified atrial fibrillation; I25.10 Atherosclerotic heart disease of native coronary artery without angina pectoris; K21.9 Gastro-esophageal reflux disease without esophagitis; E03.9 Hypothyroidism, unspecified; Z79.899 Other long term (current) drug therapy; Z79.890 Hormone replacement therapy; Z88.8 Allergy status to other drugs, medicaments and biological substances; Z87.891 Personal history of nicotine dependence
CPT/HCPCS: 36415; 80053; 81001; 82550; 85025; 85652; 87086; 87088; 87186; 97110; 97161; A9270; J0696; J3490; U0002

== ENCOUNTER 2023-11-04 12:12 | Emergency (ER) | payer MEDICARE, BC ==
[2023-11-04] MEDS: Lidocaine/Epineph/Tetracaine 3 ML Syringe TOP ONE (13:37)
[2023-11-04] MEDS: Lidocaine 1% 10 ML MDV INJECT ONE (13:38)
[2023-11-04 18:27] VITALS: BP 118/92; PULSE 97
== END 2023-11-04 15:45 | disposition home or self-care (01) ==
LOC: JD.ED 12:12
DX: S81.812A Laceration without foreign body, left lower leg, initial encounter (principal); I11.0 Hypertensive heart disease with heart failure; I50.9 Heart failure, unspecified; K21.9 Gastro-esophageal reflux disease without esophagitis; E03.9 Hypothyroidism, unspecified; Z88.8 Allergy status to other drugs, medicaments and biological substances; Z79.82 Long term (current) use of aspirin; Z79.890 Hormone replacement therapy; Z79.899 Other long term (current) drug therapy; W22.8XXA Striking against or struck by other objects, initial encounter
CPT/HCPCS: 12002; 99282; A9270; J3490

== ENCOUNTER 2023-11-16 02:23 | Emergency (ER) | payer MEDICARE, BC ==
[2023-11-16] MEDS: Sodium Chloride 0.9% 10 ML Syringe FLUSH PRN (03:06)
[2023-11-16 03:13] LABS: APPEARANCE,URINE CLOUDY (Clear); BILIRUBIN,URINE NEGATIVE (Negative); COLOR,URINE YELLOW (Yellow); GLUCOSE,URINE NEGATIVE (Negative); KETONES,URINE NEGATIVE (Negative); LEUKOCYTE ESTERASE,URINE 3+ (Negative); NITRITE,URINE NEGATIVE (Negative); OCCULT BLOOD,URINE 3+ (Negative); PH,URINE 7.5 (5.0-8.0); PROTEIN,URINE 3+ (Negative); UROBILINOGEN,URINE 0.2 (0.2-1.0)
[2023-11-16 03:27] LABS: HEMOGLOBIN 11.9 gm/dl (12.0-16.0); MEAN CORPUSCULAR HEMOGLOBIN 29.8 pg (28.0-32.0); MEAN CORPUSCULAR HGB CONC 31.3 g/dl (32.0-36.0); MEAN CORPUSCULAR VOLUME 95.2 fl (83.0-99.0); MEAN PLATELET VOLUME 10.5 fl (9.4-12.3); PLATELET COUNT,PLT 139 K/mm3 (150-400); RED BLOOD CELL COUNT 3.99 M/mm3 (4.10-5.30); WHITE BLOOD CELL COUNT,WBC 13.04 K/mm3 (3.9-11.3)
[2023-11-16 03:38] LABS: BACTERIA,URINE MODERATE /hpf (FEW); EPITHELIAL CELLS,URINE 0-5 /hpf (0-5); MUCUS,URINE NOT SEEN /hpf (FEW); WBC CASTS,URINE 0-5 /lpf (0-5); WBC CLUMPS,URINE FEW /hpf (NOT SEEN); WBC,URINE 40-50 /hpf (0-5)
[2023-11-16 03:47] LABS: INR 1.14
[2023-11-16 03:52] LABS: A/G RATIO 0.8 (1-2); ANION GAP 13.7 (5-15); BILIRUBIN TOTAL 1.2 mg/dL (0.2-1.0); C-REACTIVE PROTEIN 6.14 mg/dL (<0.30); CALCIUM 8.7 mg/dL (8.5-10.1); CREATININE 1.2 mg/dL (0.55-1.02); EST CRCL DRUG DOSING (CG) 30.56 mL/min; POTASSIUM,K 3.7 mEq/L (3.5-5.1); PROTEIN TOTAL,TP 6.8 g/dl (6.4-8.2)
[2023-11-16 04:13] LABS: CORONAVIRUS COVID-19 NAA NEGATIVE (NEGATIVE); INFLUENZA A NAA NEGATIVE (NEGATIVE); RESPIRATORY SYNCYTIAL VIR NAA NEGATIVE (NEGATIVE)
[2023-11-16 04:34] LABS: BAND PERCENT MAN 1 % (0-10); BASOPHILS PERCENT MAN 0 (0.1-1.2); EOSINOPHILS PERCENT MAN 0 % (0.7-5.8); LYMPHOCYTES % ATYPICAL MANUAL 0 %; LYMPHOCYTES PERCENT MAN 4 % (20-40); MONOCYTES PERCENT MAN 12 % (2-10)
[2023-11-16 04:35] LABS: PLATELET COUNT ESTIMATE ADEQUATE
[2023-11-16] MEDS: cefTRIAXone 2 GM in Sodium Chloride 0.9% 100 ML IV ONE (04:45)
[2023-11-16] MEDS: Iopamidol 755 Mg/ML 100 ML Bottle IVPUSH ONE (05:42)
[2023-11-16] MEDS: Acetaminophen 325 MG Tab PO ONE (05:49)
[2023-11-16] MEDS: Sodium Chloride 0.9% 1,000 ML IV SCH (05:50)
[2023-11-16 07:36] VITALS: BP 95/58; PULSE 74
== END 2023-11-16 07:25 ==
LOC: JD.ED 02:23
DX: N30.00 Acute cystitis without hematuria (principal); L03.116 Cellulitis of left lower limb; I48.91 Unspecified atrial fibrillation; I25.10 Atherosclerotic heart disease of native coronary artery without angina pectoris; I11.0 Hypertensive heart disease with heart failure; I50.9 Heart failure, unspecified; E78.00 Pure hypercholesterolemia, unspecified; K21.9 Gastro-esophageal reflux disease without esophagitis; E03.9 Hypothyroidism, unspecified; Z79.899 Other long term (current) drug therapy; Z79.82 Long term (current) use of aspirin; Z88.8 Allergy status to other drugs, medicaments and biological substances; Z88.1 Allergy status to other antibiotic agents
CPT/HCPCS: 0241U; 36415; 71045; 71275; 80053; 81001; 83605; 85007; 85027; 85610; 86140; 87040; 87086; 87154; 96361; 96365; 99285; A9270; J0696; J3490; J7030; Q9967; 87077; 87088; 87186

== ENCOUNTER 2024-03-09 20:04 | Inpatient (IN) | payer MEDICARE, BC ==
[2024-03-09] MEDS ORDERED: Sodium Chloride 0.9% 10 ML Syringe FLUSH PRN (20:18)
[2024-03-09 20:30] LABS: BASOPHILS ABSOLUTE AUTO 0.1 K/mm3 (0.0-0.2); BASOPHILS PERCENT AUTO 0.7 % (0.0-1.0); EOSINOPHILS ABSOLUTE AUTO 0.1 K/mm3 (0.0-0.4); HEMATOCRIT 42.9 % (37.0-47.0); HEMOGLOBIN 14.5 gm/dl (12.0-16.0); IMMATURE GRAN ABSOLUTE AUTO 0.03 K/mm3 (0.00-0.05); IMMATURE GRAN PERCENT AUTO 0.3 % (0.0-0.4); LYMPHOCYTES ABSOLUTE AUTO 1.3 K/mm3 (1.0-4.8); LYMPHOCYTES PERCENT AUTO 15.3 % (24.0-44.0); MEAN CORPUSCULAR HEMOGLOBIN 30.1 pg (28.0-32.0); MEAN CORPUSCULAR HGB CONC 33.8 g/dl (32.0-36.0); MEAN CORPUSCULAR VOLUME 89.2 fl (83.0-99.0); MEAN PLATELET VOLUME 10.8 fl (9.4-12.3); MONOCYTES ABSOLUTE AUTO 1.1 K/mm3 (0.0-0.8); MONOCYTES PERCENT AUTO 12.1 % (0.0-8.0); NEUTROPHILS ABSOLUTE AUTO 6.2 K/mm3 (1.8-7.7); NEUTROPHILS PERCENT AUTO 70.6 % (41.0-71.0); PLATELET COUNT,PLT 148 K/mm3 (150-400); RED BLOOD CELL COUNT 4.81 M/mm3 (4.10-5.30); WHITE BLOOD CELL COUNT,WBC 8.77 K/mm3 (3.9-11.3)
[2024-03-09 20:35] LABS: APPEARANCE,URINE CLEAR (Clear); BILIRUBIN,URINE NEGATIVE (Negative); COLOR,URINE YELLOW (Yellow); GLUCOSE,URINE NEGATIVE (Negative); KETONES,URINE NEGATIVE (Negative); LEUKOCYTE ESTERASE,URINE 3+ (Negative); NITRITE,URINE NEGATIVE (Negative); OCCULT BLOOD,URINE 2+ (Negative); PROTEIN,URINE 3+ (Negative); UROBILINOGEN,URINE 0.2 (0.2-1.0)
[2024-03-09 20:47] LABS: BACTERIA,URINE MODERATE /hpf (FEW); MUCUS,URINE FEW /hpf (FEW); RBC,URINE 40-50 /hpf (0-5); SQUAMOUS EPITHELIAL CELLS,UR 0-5 /hpf (0-5); WBC CLUMPS,URINE FEW /hpf (NOT SEEN); WBC,URINE 40-50 /hpf (0-5)
[2024-03-09 21:02] LABS: LACTIC ACID 1.7 mmol/L (0.4-2.0)
[2024-03-09 21:09] LABS: A/G RATIO 0.9 (1-2); ALBUMIN 3.5 g/dl (3.4-5.0); ANION GAP 15.8 (5-15); BILIRUBIN TOTAL 1.1 mg/dL (0.2-1.0); BUN/CREATININE RATIO 24.1 (14-18); C-REACTIVE PROTEIN 2.76 mg/dL (<0.30); CALCIUM 9.4 mg/dL (8.5-10.1); CREATININE 1.7 mg/dL (0.55-1.02); EST CRCL DRUG DOSING (CG) 21.57 mL/min; MAGNESIUM 2.3 mg/dL (1.8-2.4); POTASSIUM,K 4.8 mEq/L (3.5-5.1); PROTEIN TOTAL,TP 7.6 g/dl (6.4-8.2)
[2024-03-09] MEDS: Furosemide 40 MG/4 ML VIAL IVPUSH ONE (21:12)
[2024-03-09 21:13] LABS: BASE EXCESS ARTERIAL 0.9 (-2-2.0); BICARBONATE,ARTERIAL 24.7 meq/L (22.0-26.0); O2 SATURATION ARTERIAL 98.7 % (96.0-97.0); PCO2 ARTERIAL 38.6 mmHg (35.0-45.0)
[2024-03-09] MEDS: cefTRIAXone 2 GM in Sodium Chloride 0.9% 100 ML IV ONE (21:51)
[2024-03-09] MEDS: Furosemide 40 MG/4 ML VIAL IVPUSH SCH (22:00)
[2024-03-10 09:52] LABS: ANION GAP 11.7 (5-15); CALCIUM 9.1 mg/dL (8.5-10.1); CREATININE 1.3 mg/dL (0.55-1.02); EST CRCL DRUG DOSING (CG) 26.91 mL/min; POTASSIUM,K 3.7 mEq/L (3.5-5.1)
[2024-03-10] MEDS: Aspirin 81 MG Tab.EC PO SCH (10:04)
[2024-03-10] MEDS: Digoxin 125 MCG Tab PO SCH (10:04)
[2024-03-10] MEDS: Spironolactone 25 MG Tab PO SCH (10:04)
[2024-03-10] MEDS: Sertraline 50 MG Tab PO SCH (10:05)
[2024-03-10] MEDS: Metoprolol Tartrate 25 MG Tab PO SCH (10:05)
[2024-03-10] MEDS: Torsemide 20 MG Tab PO SCH (12:46)
[2024-03-10] MEDS: Acetaminophen 325 MG Tab PO PRN (14:06)
[2024-03-10] MEDS: Heparin Sodium 5,000 Units/ML Vial SUBCUT SCH (14:45)
[2024-03-10] MEDS ORDERED: cefTRIAXone 1 GM in Sodium Chloride 0.9% 50 ML IV SCH (21:00)
[2024-03-10] MEDS ORDERED: cefTRIAXone 1 GM Vial IM SCH (21:30)
[2024-03-10] MEDS: atorvaSTATin 20 MG Tab PO SCH (21:37)
[2024-03-10] MEDS: Mirtazapine 15 MG Tab PO SCH (21:39)
[2024-03-10] MEDS: cefTRIAXone 1 GM Vial IVPUSH SCH (21:40)
[2024-03-11 05:36] LABS: BASOPHILS ABSOLUTE AUTO 0.1 K/mm3 (0.0-0.2); BASOPHILS PERCENT AUTO 0.6 % (0.0-1.0); EOSINOPHILS ABSOLUTE AUTO 0.4 K/mm3 (0.0-0.4); EOSINOPHILS PERCENT AUTO 5.4 % (0.0-6.0); HEMATOCRIT 48.2 % (37.0-47.0); HEMOGLOBIN 15.1 gm/dl (12.0-16.0); IMMATURE GRAN ABSOLUTE AUTO 0.03 K/mm3 (0.00-0.05); IMMATURE GRAN PERCENT AUTO 0.4 % (0.0-0.4); LYMPHOCYTES ABSOLUTE AUTO 1.1 K/mm3 (1.0-4.8); LYMPHOCYTES PERCENT AUTO 14.2 % (24.0-44.0); MEAN CORPUSCULAR HEMOGLOBIN 30.1 pg (28.0-32.0); MEAN CORPUSCULAR HGB CONC 31.3 g/dl (32.0-36.0); MEAN PLATELET VOLUME 11.1 fl (9.4-12.3); MONOCYTES ABSOLUTE AUTO 0.7 K/mm3 (0.0-0.8); MONOCYTES PERCENT AUTO 8.9 % (0.0-8.0); NEUTROPHILS ABSOLUTE AUTO 5.4 K/mm3 (1.8-7.7); NEUTROPHILS PERCENT AUTO 70.5 % (41.0-71.0); PLATELET COUNT,PLT 130 K/mm3 (150-400); RED BLOOD CELL COUNT 5.01 M/mm3 (4.10-5.30); WHITE BLOOD CELL COUNT,WBC 7.72 K/mm3 (3.9-11.3)
[2024-03-11 05:52] LABS: MEAN CORPUSCULAR VOLUME 96.2 fl (83.0-99.0)
[2024-03-11 06:05] LABS: A/G RATIO 0.7 (1-2); ALBUMIN 3.1 g/dl (3.4-5.0); ANION GAP 14.6 (5-15); BILIRUBIN TOTAL 0.9 mg/dL (0.2-1.0); BUN/CREATININE RATIO 32.5 (14-18); C-REACTIVE PROTEIN 2.49 mg/dL (<0.30); CALCIUM 9.1 mg/dL (8.5-10.1); CREATININE 1.2 mg/dL (0.55-1.02); EST CRCL DRUG DOSING (CG) 29.16 mL/min; PROTEIN TOTAL,TP 7.3 g/dl (6.4-8.2)
[2024-03-11 06:17] LABS: POTASSIUM,K 3.6 mEq/L (3.5-5.1)
[2024-03-11] MEDS: Levothyroxine 75 MCG Tab PO SCH (06:40)
[2024-03-11] MEDS: Acetaminophen 325 MG Tab PO PRN ×2 (11:05→21:02)
[2024-03-11] MEDS: Spironolactone 25 MG Tab PO SCH (11:23)
[2024-03-12 06:36] LABS: A/G RATIO 0.8 (1-2); ALBUMIN 2.8 g/dl (3.4-5.0); ANION GAP 7.7 (5-15); BILIRUBIN TOTAL 0.6 mg/dL (0.2-1.0); BUN/CREATININE RATIO 29.2 (14-18); CALCIUM 9.2 mg/dL (8.5-10.1); CREATININE 1.3 mg/dL (0.55-1.02); EST CRCL DRUG DOSING (CG) 26.91 mL/min; POTASSIUM,K 3.7 mEq/L (3.5-5.1); PROTEIN TOTAL,TP 6.5 g/dl (6.4-8.2)
[2024-03-13 07:06] LABS: A/G RATIO 0.7 (1-2); ALBUMIN 2.8 g/dl (3.4-5.0); ANION GAP 9.7 (5-15); BILIRUBIN TOTAL 0.5 mg/dL (0.2-1.0); BUN/CREATININE RATIO 30.8 (14-18); CALCIUM 9.2 mg/dL (8.5-10.1); CREATININE 1.2 mg/dL (0.55-1.02); EST CRCL DRUG DOSING (CG) 29.16 mL/min; POTASSIUM,K 3.7 mEq/L (3.5-5.1); PROTEIN TOTAL,TP 6.6 g/dl (6.4-8.2)
[2024-03-13] MEDS: Docusate Sodium 100 MG Cap PO SCH (13:19)
[2024-03-13] MEDS: Midodrine 5 MG Tab PO SCH (15:54)
[2024-03-14 12:03] VITALS: BP 113/74; PULSE 58
== END 2024-03-14 13:03 | DRG 280 ==
LOC: JD.ED 20:04 → JD.MS 21:43
PROVIDERS: ADMIT Family Medicine; ATTEND Internal Medicine
PROC: 4B02XSZ Measurement of Cardiac Pacemaker, External Approach (ICD-10-PCS; principal; 2024-03-12)
DX: I13.0 Hypertensive heart and chronic kidney disease with heart failure and stage 1 through stage 4 chronic kidney disease, or unspecified chronic kidney disease (principal); I50.23 Acute on chronic systolic (congestive) heart failure; N31.2 Flaccid neuropathic bladder, not elsewhere classified; R79.82 Elevated C-reactive protein (CRP); I21.A1 Myocardial infarction type 2; J43.1 Panlobular emphysema; J96.21 Acute and chronic respiratory failure with hypoxia; J81.0 Acute pulmonary edema; J18.9 Pneumonia, unspecified organism; I50.9 Heart failure, unspecified; T83.511A Infection and inflammatory reaction due to indwelling urethral catheter, initial encounter; N39.0 Urinary tract infection, site not specified; J44.9 Chronic obstructive pulmonary disease, unspecified; N18.9 Chronic kidney disease, unspecified; N17.9 Acute kidney failure, unspecified; J44.0 Chronic obstructive pulmonary disease with (acute) lower respiratory infection; Z79.890 Hormone replacement therapy; J98.11 Atelectasis; N18.32 Chronic kidney disease, stage 3b; T50.905A Adverse effect of unspecified drugs, medicaments and biological substances, initial encounter; Y69 Unspecified misadventure during surgical and medical care; N31.9 Neuromuscular dysfunction of bladder, unspecified; I25.10 Atherosclerotic heart disease of native coronary artery without angina pectoris; I42.8 Other cardiomyopathies; I48.0 Paroxysmal atrial fibrillation; E78.00 Pure hypercholesterolemia, unspecified; F15.90 Other stimulant use, unspecified, uncomplicated; M19.90 Unspecified osteoarthritis, unspecified site; F41.9 Anxiety disorder, unspecified; F32.A Depression, unspecified; E03.9 Hypothyroidism, unspecified; Z96.619 Presence of unspecified artificial shoulder joint; Z96.649 Presence of unspecified artificial hip joint; Z95.0 Presence of cardiac pacemaker; I25.2 Old myocardial infarction; Z86.73 Personal history of transient ischemic attack (TIA), and cerebral infarction without residual deficits; Z88.8 Allergy status to other drugs, medicaments and biological substances; Z79.1 Long term (current) use of non-steroidal anti-inflammatories (NSAID); Z79.82 Long term (current) use of aspirin; Z79.899 Other long term (current) drug therapy; Z79.02 Long term (current) use of antithrombotics/antiplatelets; Z86.16 Personal history of COVID-19; Z90.89 Acquired absence of other organs; Z98.890 Other specified postprocedural states; Z99.81 Dependence on supplemental oxygen; Z98.1 Arthrodesis status; Y92.89 Other specified places as the place of occurrence of the external cause
CPT/HCPCS: 36415; 36600; 71045; 80053; 81001; 82803; 83605; 83735; 83880; 84443; 84484; 85025; 86140; 87040 ×2; 87086; 87088; 87186; 93005; 96374; 96375; 99285; J1940; 80048; 87641; 93010; 93306; 94760; 94761; 99284; A9270-GY; J0696; J1644; J3490